=== PATIENT | female | born 1985 | race Caucasian/White ===

== ENCOUNTER 2018-08-05 21:15 | Observation (INO) | payer OTHER ==
[~2018-08-05] VITALS: Ht 167.6 cm; Wt 61.3 kg
--- OUTSIDE RECORDS SUMMARY | 2018-08-05 21:17 | XMS REPORT | Clinical Summary ---
Author Author [facility] Address Unknown Phone Unavailable Care Team Providers Care Media Analyst Name Role Phone Steven Payne MD PCP Allergies Active Allergy Reactions Severity Noted Date Comments Enoxaparin Hives 04/17/2016 Current Medications Prescription Sig. Disp. Refills Start End Date Status Date ARIPiprazole (ABILIFY) 2 Take 2 mg by mouth once 0 04/06/20 Active MG tablet daily. 16 sertraline (ZOLOFT) 100 Take 100 mg by mouth once 0 04/06/20 Active MG tablet daily. 16 pen needle, diabetic (BD Use with victoza pen 30 each 6 06/10/20 Active ULTRA-FINE MARY PEN 16 NEEDLES) 32 gauge x 5/32" needle TRULICITY 0.75 mg/0.5 mL INJECT 0.75 MG UNDER THE 6 Syringe 0 03/07/20 Active pen injector SKIN EVERY 7 DAYS. 18 ADDYI 100 mg tablet Take 1 tablet by mouth 6 06/29/20 07/28/20 Discontin nightly. 16 18 ued ursodiol (ACTIGALL) 300 Take 1 capsule by mouth 2 07/28/20 Discontin mg capsule (two) times a day. 18 ued losartan (COZAAR) 50 MG Take 50 mg by mouth 07/28/20 Discontin tablet daily. 18 ued dulaglutide (TRULICITY) Inject 0.75 mg under the 12 Syringe 1 05/29/20 12/10/19 Discontin 0.75 mg/0.5 mL pen skin every 7 days. 17 18 ued injector TRULICITY 0.75 mg/0.5 mL INJECT 0.75 MG UNDER THE 6 Syringe 0 12/10/19 03/07/20 Discontin pen injector SKIN EVERY 7 DAYS. 18 18 ued Active Problems Problem Noted Date Status post gastric bypass for obesity 09/09/2016 Hypoglycemia after GI (gastrointestinal) surgery 04/18/2016 Encounters Date Type Specialty Care Team Description 08/05/2018 Documentation Endocrinology Ashley Mojica MA Blood Sugar Problem 07/30/2018 Telephone Endocrinology Jayna Cruz MA 07/28/2018 Office Visit Endocrinology Nikky Beck MD Hypoglycemia after GI (gastrointestinal) surgery (Primary Dx) 07/25/2018 Orders Only Endocrinology Nikky Beck MD 06/12/2018 Telephone Endocrinology Ashley Mojica MA 04/08/2018 Telephone Endocrinology Ashley Mojica MA 03/06/2018 Refill Endocrinology Nikky Beck MD 12/11/2017 Orders Only Endocrinology Cynthia York MA Hypoglycemia after GI (gastrointestinal) surgery (Primary Dx) 12/10/2017 Documentation Endocrinology Cynthia York MA 12/10/2017 Refill Endocrinology Nikky Beck MD after 08/04/2017 Family History Medical History Relation Name Comments Diabetes Father Abdulaziz hernandez Kidney cancer Father Abdulaziz possible mary Hypertension Maternal Grandfather Heart disease Maternal Grandmother No Known Problems Mother Heart disease Other Grandmother Hypertension Other Grandmother Ulcers Other Grandmother Stomach ulcers Cancer Paternal Grandfather No Known Problems Sister No Known Problems Sister Relation Name Status Comments Father Abdulaziz Alive mary Maternal Grandfather Alive Maternal Grandmother Mother Alive Other Grandmother Alive Paternal Grandfather Paternal Grandmother Sister Alive Sister Alive Sister Social History Tobacco Use Types Packs/Day Years Used Date Never Smoker Smokeless Tobacco: Never Used Alcohol Use Drinks/Week oz/Week Comments No Sex Assigned at Date Recorded Not on file Last Filed Vital Signs Vital Sign Reading Time Taken Blood Pressure 108/70 07/28/2018 8:40 AM CDT Pulse 89 07/28/2018 8:40 AM CDT Temperature - - Respiratory Rate - - Oxygen Saturation 96% 07/28/2018 8:40 AM CDT Inhaled Oxygen - - Concentration Weight 65.1 kg (143 lb 9.6 oz) 07/28/2018 8:40 AM CDT Height 167.6 cm (5' 6") 07/28/2018 8:40 AM CDT Body Mass Index 23.18 07/28/2018 8:40 AM CDT Plan of Treatment Date Type Specialty Care Team Description 08/06/2018 Office Visit Endocrinology Niraj Celeste MD [address] [facility] [address] [place], [place] [id number] 08/12/2018 Office Visit Endocrinology Nikky Beck MD [address] [facility] [address] [place] [address] [phone] Health Maintenance Due Date Last Done Comments CERVICAL CANCER SCREENING 2004 INFLUENZA VACCINE 05/13/2018 Procedures Procedure Name Priority Date/Time Associated Diagnosis Comments POC GLUCOSE Routine 07/28/2018 Hypoglycemia after GI Results for this 8:42 AM CDT (gastrointestinal) procedure are in the surgery results section. HEMOGLOBIN A1C Routine 07/25/2018 Results for this 9:56 AM CDT procedure are in the results section. VITAMIN D 25 HYDROXY Routine 07/25/2018 Results for this LEVEL 9:56 AM CDT procedure are in the results section. THYROID STIMULATING Routine 07/25/2018 Results for this HORMONE 9:56 AM CDT procedure are in the results section. T4, FREE Routine 07/25/2018 Results for this 9:56 AM CDT procedure are in the results section. CBC WITH PLATELET AND Routine 07/25/2018 Results for this DIFFERENTIAL 9:56 AM CDT procedure are in the results section. MICROALBUMIN / CREATININE Routine 07/25/2018 Results for this URINE RATIO 9:56 AM CDT procedure are in the results section. COMPREHENSIVE METABOLIC Routine 07/25/2018 Results for this PANEL 9:56 AM CDT procedure are in the results section. LIPID PANEL Routine 07/25/2018 Results for this 9:56 AM CDT procedure are in the results section. after 08/04/2017 Results * POC glucose (07/28/2018 8:42 AM) POC glucose 179Comment: Non Fasting 65 - 100 Specimen Blood * Microalbumin / creatinine urine ratio (07/25/2018 9:56 AM) Creatinine, urine, random 175 20 - 275 mg/dL [facility] Microalbumin, urine 0.4 See Note: mg/dL [facility] Comment: MARIA L Reference Range: Reference Range Not established Microalbumin/creatinine 2 <30 mcg/mg creat [facility] ratio Comment: [facility] The ADA defines abnormalities in albumin excretion as follows: Category Result (mcg/mg creatinine) Normal <30 Microalbuminuria 30-299 Clinical albuminuria > UN=095 The ADA recommends that at least two of three specimens collected within a 3-6 month period be abnormal before considering a patient to be within a diagnostic category. Narrative Performed At FASTING:YES [facility] FASTING: YES Other Results Text Performing Organization Information: Site ID: [id number] Name: [facility] Address: [address] [place] [id number] Director: Starla Lewis Performing Organization Address [facility] [place] [address] * Vitamin D 25 hydroxy level (07/25/2018 9:56 AM) Vitamin D, 25-hydroxy 22 (L) 30 - 100 ng/mL [facility] Comment: [facility] Vitamin D Status 25-OH Vitamin D: Deficiency: <20 ng/mL Insufficiency: 20 - 29 ng/mL Optimal: > or=30 ng/mL For 25-OH Vitamin D testing on patients on D2-supplementation and patients for whom quantitation of D2 and D3 fractions is required, the QuestAssureD(TM) 25-OH VIT D, (D2,D3), LC/MS/MS is recommended: order code 12148 (patients >2yrs). For more information on this test, go to: http://education.[employer]Recoup/faq/DPT977 (This link is being provided for informational/educational purposes only.) Narrative Performed At FASTING:YES [facility] FASTING: YES Other Results Text Performing Organization Information: Site ID: [id number] Name: [facility] Address: [address] [place] [phone] Director: Starla Lewis Performing Organization Address [facility] [place] [address] * CBC with platelet and differential (07/25/2018 9:56 AM) WBC 4.8 3.8 - 10.8 Thousand/uL [facility] RBC 5.03 3.80 - 5.10 Million/uL [facility] HGB 14.0 11.7 - 15.5 g/dL [facility] HCT 42.5 35.0 - 45.0 % [facility] MCV 84.5 80.0 - 100.0 fL [facility] MCH 27.8 27.0 - 33.0 pg [facility] MCHC 32.9 32.0 - 36.0 g/dL [facility] RDW 12.9 11.0 - 15.0 % [facility] Platelet count 328 140 - 400 Thousand/uL [facility] MPV 9.8 7.5 - 12.5 fL [facility] Neutrophils, absolute 2,448 1,500 - 7,800 cells/uL [facility] Lymphocytes, absolute 1,954 850 - 3,900 cells/uL [facility] Monocytes, absolute 370 200 - 950 cells/uL [facility] Eosinophils, absolute 0 (L) 15 - 500 cells/uL [facility] Basophils, absolute 29 0 - 200 cells/uL [facility] Neutrophils 51 % [facility] Lymphocytes 40.7 % [facility] Monocytes 7.7 % [facility] Eosinophils 0.0 % [facility] Basophils + RC 0.6 % [facility] Narrative Performed At FASTING:YES [facility] FASTING: YES Other Results Text Performing Organization Information: Site ID: [id number] Name: [facility] Address: [address] [place] [phone] Director: Starla Lewis Performing Organization Address City/[facility] Phone Number [place] [phone] * Thyroid stimulating hormone (07/25/2018 9:56 AM) TSH 0.81 mIU/L [facility] Comment: [facility] Reference Range > or=20 Years0.40-4.50 Ranges First trimester0.26-2.66 Second trimester 0.55-2.73 Third trimester0.43-2.91 Narrative Performed At FASTING:YES [facility] FASTING: YES Other Results Text Performing Organization Information: Site ID: [id number] Name: [facility] Address: [address] [place] [phone] Director: Starla Lewis Performing Organization Address City/State/[facility] Phone Number [place] [address] [phone] * T4, free (07/25/2018 9:56 AM) T4, free 1.0 0.8 - 1.8 ng/dL [facility] Narrative Performed At FASTING:YES [facility] FASTING: YES Other Results Text Performing Organization Information: Site ID: [id number] Name: [facility] Address: [address] [place] [phone] Director: Starla Lewis Performing Organization Address [facility] [place] [address] * Hemoglobin A1c (07/25/2018 9:56 AM) Hemoglobin A1C 5.2 <5.7 % of total Hgb [facility] Comment: [facility] For the purpose of screening for the presence of diabetes: <5.7% Consistent with the absence of diabetes 5.7-6.4%Consistent with increased risk for diabetes (predi abetes) > or=6.5%Consistent with diabetes This assay result is consistent with a decreased risk of diabetes. Currently, no consensus exists regarding use of hemoglobin A1c for diagnosis of diabetes in children. According to [place] [employer] (ADA) guidelines, hemoglobin A1c <7.0% represents optimal control in non- diabetic patients. Different metrics may apply to specific patient populations. Standards of Medical Care in Diabetes(ADA). Narrative Performed At FASTING:YES [facility] FASTING: YES Other Results Text Performing Organization Information: Site ID: [id number] Name: [facility] Address: [address] [place] [phone] Director: Starla Lewis Performing Organization Address [facility] [place] [address] * Lipid panel (07/25/2018 9:56 AM) Cholesterol, total 199 <200 mg/dL [facility] HDL cholesterol 83 >50 mg/dL [facility] Triglycerides 77 <150 mg/dL [facility] LDL cholesterol 99 mg/dL (calc) [facility] calculated Comment: [facility] Reference range: <100 Desirable range <100 mg/dL for primary prevention; <70 mg/dL for patients with CHD or diabetic patients with > or=2 CHD risk factors. LDL-C is now calculated using the Efra-Fu calculation, which is a validated novel method providing better accuracy than the Friedewald equation in the estimation of LDL-C. Efra SS et al. MYLES. 2013;310(19): 6178-6262 (http://education.[employer].com/faq/LRM283) Cholesterol/HDL ratio 2.4 <5.0 (calc) [facility] Non-HDL cholesterol 116 <130 mg/dL (calc) [facility] Comment: [facility] For patients with diabetes plus 1 major ASCVD risk factor, treating to a non-HDL-C goal of <100 mg/dL (LDL-C of <70 mg/dL) is considered a therapeutic option. Narrative Performed At FASTING:YES [facility] FASTING: YES Other Results Text Performing Organization Information: Site ID: [id number] Name: [facility] Address: [address] [place] [phone] Director: Starla Lewis Performing Organization Address City/State/Zipcode Phone Number [facility] [address] [place] [phone] * Comprehensive metabolic panel (07/25/2018 9:56 AM) Glucose 91 65 - 99 mg/dL [facility] Comment: [facility] Fasting reference interval BUN, whole blood 12 7 - 25 mg/dL [facility] Creatinine 0.90 0.50 - 1.10 mg/dL [facility] EGFR Non-Afr. [place] 83 > OR=60 mL/min/1.73m2 [facility] EGFR 96 > OR=60 mL/min/1.73m2 [facility] BUN/creatinine ratio NOT APPLICABLE 6 - 22 (calc) [facility] Sodium 140 135 - 146 mmol/L [facility] Potassium 4.4 3.5 - 5.3 mmol/L [facility] Chloride 107 98 - 110 mmol/L [facility] CO2 27 20 - 32 mmol/L [facility] Calcium 9.0 8.6 - 10.2 mg/dL [facility] Protein 6.8 6.1 - 8.1 g/dL [facility] Albumin, S 4.0 3.6 - 5.1 g/dL [facility] Globulin, total 2.8 1.9 - 3.7 g/dL (calc) [facility] Albumin/globulin ratio 1.4 1.0 - 2.5 (calc) [facility] Total bilirubin 0.7 0.2 - 1.2 mg/dL [facility] Alkaline phosphatase 114 33 - 115 U/L [facility] AST 15 10 - 30 U/L [facility] ALT 11 6 - 29 U/L [facility] Narrative Performed At FASTING:YES [facility] FASTING: YES Other Results Text Performing Organization Information: Site ID: [id number] Name: [facility] Address: [address] [place] [address] Director: Starla Lewis Performing Organization Address City/State/Zipcode Phone Number [facility] [address] [place] [address] after 08/04/2017 Insurance Payer Benefit Subscriber ID Type Phone Address Plan / Group [employer]IG[employer] CIGNA OPEN xxxxxxxxxxx HMO ACCESS/NET WORK
--- OUTSIDE RECORDS SUMMARY | 2018-08-05 21:17 | XMS REPORT | Continuity of Care Document ---
Author Author [facility] Interface Address Unknown Phone Unavailable Problems Problem Status Onset Date Classification Date Reported Comments Source Abdominal pain 05/03/2018 05/06/2018 [facility] LWR ABDOMINAL PAIN Active 05/03/2018 [facility] Medications Medication Details Route Status Patient Instructions Ordering Provider Order Date Source tramadol hydrochloride 50 MG Oral Tablet 50 mg=1 tab, PO, Q8H, PRN Pain, X 5 day, # 15 tab, 0 Refill(s) Active 05/04/2018 [facility] Omnipaque 300 100 mL, Route: IV, Drug Form: SOLN, Dosing Weight 61.818, kg, ONCE, Start date: 05/03/18 20:29:00 CDT, Stop date: 05/03/18 20:29:00 CDTNotes: (Same as:Omnipaque 300). WASTE: F/P - Black; E - Municipal Trash Bin Inactive 05/04/2018 [facility] Zofran 4 mg, Route: IVP, Drug form: INJ, ONCE, Dosing Weight 61.818, kg, Priority: STAT, Start date: 05/03/18 20:24:00 CDT, Stop date: 05/03/18 20:24:00 CDT Inactive 05/04/2018 [facility] Morphine 4 mg, Route: IVP, ONCE, Dosing Weight 61.818, kg, Priority: STAT, Start date: 05/03/18 20:24:00 CDT, Stop date: 05/03/18 20:24:00 CDT Inactive 05/04/2018 [facility] Saline Flush 0.9% 10 mL, Route: IVP, Drug Form: INJ, Dosing Weight 61.818, kg, PRN, PRN Line Flush, Start date: 05/03/18 18:51:00 CDT, Duration: 30 day, Stop date: 06/02/18 18:50:00 CDTNotes: Same as: BD Posiflush Sterile Inactive 05/03/2018 [facility] Allergies, Adverse Reactions, Alerts Substance Category Reaction Severity Reaction type Status Date Reported Comments Source Lovenox Assertion Drug allergy Active [facility] Immunizations Immunization Date Given Site Status Last Updated Comments Source Results Order Name Results Value Reference Range Date Interpretation Comments Source CHEM PANEL eGFR 71 mL/min/1.73m2 05/04/2018 Result Comment: The eGFR is calculated using the CKD-EPI formula. In most young, healthy individuals the eGFR will be >90 mL/min/1.73m2. The eGFR declines with age. An eGFR of 60-89 may be normal in some populations, particularly the elderly, for whom the CKD-EPI formula has not been extensively validated. Use of the eGFR is not recommended in the following populations: Individuals with unstable creatinine concentrations, including patients and those with serious co-morbid conditions. Patients with extremes in muscle mass or diet. The data above are obtained from the National Kidney Disease Education Program (NKDEP) which additionally recommends that when the eGFR is used in patients with extremes of body mass index for purposes of drug dosing, the eGFR should be multiplied by the estimated BMI. [facility] CHEM PANEL Calcium Lvl 8.1 mg/dL 8.5 - 10.5 05/04/2018 [facility] CHEM PANEL ALT 20 unit/L 0 - 65 05/04/2018 [facility] CHEM PANEL Albumin Lvl 3.7 g/dL 3.5 - 5.0 05/04/2018 [facility] CHEM PANEL Total Protein 7.3 g/dL 6.4 - 8.4 05/04/2018 [facility] CHEM PANEL Alk Phos 124 unit/L 39 - 136 05/04/2018 [facility] CHEM PANEL Bili Total 0.4 mg/dL 0.2 - 1.3 05/04/2018 [facility] CHEM PANEL AST 16 unit/L 0 - 37 05/04/2018 [facility] CHEM PANEL Potassium Lvl 3.6 meq/L 3.5 - 5.1 05/04/2018 [facility] CHEM PANEL Chloride Lvl 108 meq/L 95 - 109 05/04/2018 [facility] CHEM PANEL Sodium Lvl 143 meq/L 135 - 145 05/04/2018 [facility] CHEM PANEL CO2 27 meq/L 24 - 32 05/04/2018 [facility] CHEM PANEL Creatinine Lvl 1.02 mg/dL 0.50 - 1.40 05/04/2018 [facility] CHEM PANEL Glucose Lvl 96 mg/dL 70 - 99 05/04/2018 [facility] CHEM PANEL BUN 15 mg/dL 7 - 22 05/04/2018 [facility] CHEM PANEL Globulin 3.6 g/dL 2.7 - 4.2 05/04/2018 [facility] CHEM PANEL B/C Ratio 15 6 - 25 05/04/2018 [facility] CHEM PANEL A/G Ratio 1.0 0.7 - 1.6 05/04/2018 [facility] CHEM PANEL AGAP 11.6 meq/L 10.0 - 20.0 05/04/2018 [facility] CHEM PANEL Lipase Lvl 368 unit/L 73 - 393 05/04/2018 [facility] ENDOCRINOLOGY S Preg Negative *NA* (05/03/18 7:04 PM) Negative 05/04/2018 [facility] HEMATOLOGY Monocytes # 0.6 K/CMM 0.0 - 0.8 05/04/2018 [facility] HEMATOLOGY Lymphocytes # 2.1 K/CMM 1.0 - 5.5 05/04/2018 [facility] HEMATOLOGY Eosinophils # 0.1 K/CMM 0.0 - 0.5 05/04/2018 [facility] HEMATOLOGY Segs-Bands # 4.2 K/CMM 1.5 - 8.1 05/04/2018 [facility] HEMATOLOGY Lymphocytes 30.0 % 20.0 - 40.0 05/04/2018 [facility] HEMATOLOGY Segs 59.7 % 45.0 - 75.0 05/04/2018 [facility] HEMATOLOGY Eosinophils 1.0 % 0.0 - 4.0 05/04/2018 [facility] HEMATOLOGY Monocytes 8.9 % 2.0 - 12.0 05/04/2018 [facility] HEMATOLOGY Basophils 0.4 % 0.0 - 1.0 05/04/2018 [facility] HEMATOLOGY Platelet 334 K/CMM 133 - 450 05/04/2018 [facility] HEMATOLOGY RDW 12.9 % 11.5 - 14.5 05/04/2018 [facility] HEMATOLOGY WBC 7.1 K/CMM 3.7 - 10.4 05/04/2018 [facility] HEMATOLOGY MCV 85.4 fL 80.0 - 98.0 05/04/2018 [facility] HEMATOLOGY MCHC 33.3 g/dL 32.0 - 36.0 05/04/2018 [facility] HEMATOLOGY MCH 28.4 pg 27.0 - 31.0 05/04/[address] [facility] HEMATOLOGY MPV 7.7 fL 7.4 - 10.4 05/04/[address] [facility] HEMATOLOGY Hgb 14.1 g/dL 12.0 - 16.0 05/04/[address] [facility] HEMATOLOGY RBC 4.96 M/CMM 4.20 - 5.40 05/04/[address] [facility] HEMATOLOGY Hct 42.3 % 36.0 - 48.0 05/04/[address] [facility] URINE AND STOOL UA Mucus Few /LPF None Seen /LPF 05/04/[address] [facility] URINE AND STOOL UA Bacteria Occasional /HPF None Seen /HPF 05/04/2018 [facility] URINE AND STOOL UA RBC 1 /HPF 0 - 2 05/04/2018 [facility] URINE AND STOOL UA WBC 37 /HPF 0 - 5 05/04/2018 [facility] URINE AND STOOL UA Sq Epi Many /LPF Few /LPF 05/04/2018 [facility] URINE AND STOOL UA Ketones Negative 05/04/2018 [facility] URINE AND STOOL UA Leuk Est Moderate *ABN* (05/03/18 7:04 PM) Negative 05/04/[address] [facility] URINE AND STOOL UA Bili Negative *NA* (05/03/18 7:04 PM) Negative 05/04/2018 [facility] URINE AND STOOL UA Spec Grav 1.020 <=1.030 05/04/[address] [facility] URINE AND STOOL UA pH 5.0 5.0 - 8.0 05/04/[address] [facility] URINE AND STOOL UA Nitrite Negative (05/03/18 7:04 PM) Negative 05/04/[address] [facility] URINE AND STOOL UA Blood Negative (05/03/18 7:04 PM) Negative 05/04/[address] [facility] URINE AND STOOL UA Urobilinogen 4.0 mg/dL 0.1 - 1.0 05/04/[address] [facility] URINE AND STOOL UA Glucose Negative mg/dL Negative mg/dL 05/04/[address] [facility] URINE AND STOOL UA Protein Negative mg/dL Negative mg/dL 05/04/[address] [facility] URINE AND STOOL UA Turbidity Clear (05/03/18 7:04 PM) Clear 05/04/[address] [facility] URINE AND STOOL UA Color Yellow *NA* (05/03/18 7:04 PM) Yellow 05/04/2018 [facility] Culture: Urine Holding For Better Growth 05/04/[address] [facility] ED Abdomen/Pelvis IV contrast only CT ED Abdomen/Pelvis IV contrast only CT Clinical Indication: - RLQ pain. Comparison: None. TECHNIQUE: Helical imaging was performed from diaphragm through the symphysis with coronal and sagittal reconstructions. CT imaging was performed with exposure control parameters to reduce radiation dose. IV CONTRAST: 100 cc Omnipaque. GI CONTRAST: YES CT Radiation Dose: LHE=414 mGy-cm FINDINGS: LOWER CHEST: The visualized lung bases are clear. LIVER: Unremarkable. GALLBLADDER: Status post cholecystectomy INTRAHEPATIC BILE DUCT AND EXTRAHEPATIC BILE DUCT: Unremarkable. PANCREAS: Unremarkable. SPLEEN: Unremarkable. ADRENALS: Unremarkable. KIDNEYS AND URETERS: Unremarkable. STOMACH: There are postsurgical findings of prior gastric bypass. BOWEL: The small bowel loops in the abdomen and pelvis appear unremarkable. The colonic loops in the abdomen and pelvis appear unremarkable. APPENDIX: Not well seen on the exam. PERITONEUM AND RETROPERITONEUM: No ascites or free air. There is no aortic aneurysm or dissection. LYMPH NODES: Unremarkable. PELVIS: No pelvic mass or adenopathy. BLADDER: Unremarkable. OSSEOUS STRUCTURES: No acute abnormality seen. SOFT TISSUES: Unremarkable. IMPRESSION: No specific evidence of acute abdominopelvic abnormality. SL: ASHLEE 05/03/2018 - - Read by: Velasquez Bennett MD Dictated Date/time: 05/03/18 21:12 Electronically Signed by: Velasquez Bennett MD 05/03/18 21:18 FINAL REPORT [facility] Vital Signs Vital Sign Value Date Comments Source Temperature Oral (F) 98.2 F 05/04/2018 [facility] Heart Rate 87 05/04/2018 [facility] Respitory Rate 20 05/04/2018 [facility] Systolic (mm Hg) 114 05/04/2018 [facility] Diastolic (mm Hg) 72 05/04/2018 [facility] Systolic (mm Hg) 122 05/04/2018 [facility] Diastolic (mm Hg) 74 05/04/2018 [facility] BMI Calculated 05/03/2018 [facility] Weight 61.818 05/03/2018 [facility] Height 167.64 cm 05/03/[address] [facility] Temperature Oral (F) 97.5 F 05/03/2018 [facility] Heart Rate 90 05/03/2018 [facility] Respitory Rate 18 05/03/2018 [facility] Systolic (mm Hg) 119 05/03/2018 [facility] Diastolic (mm Hg) 83 05/03/2018 [facility] Encounters Location Location Details Encounter Type Encounter Number Reason For Visit Attending Provider ADM Date DC Date Status Source [facility] Emergency [id number] Tesfaye Seth 05/03/2018 05/04/2018 [facility] Procedures Procedure Code Date Perfomer Comments Source Gastric bypass [id number] [facility]
--- OUTSIDE RECORDS SUMMARY | 2018-08-05 21:17 | XMS REPORT | Summary of Care ---
Author Author [facility] Organization [facility] Address Unknown Phone Unavailable Encounter [facility](FIN) [id number] Date(s): 05/03/18 - 05/03/18 [facility] [address] [place] [address]- Encounter Diagnosis Abdominal pain (Discharge Diagnosis) - 05/03/18 Discharge Disposition: Home or Self Care Attending Physician: Tesfaye Ann DO Vital Signs 1 2 3 Most recent to oldest [Reference Range]: 167.64 cm (05/03/18 6:44 PM) Height 98.2 DegF (05/03/18 9:33 PM) 97.5 DegF (05/03/18 6:44 PM) Temperature Oral [96.4-99.1 DegF] 114/72 mmHg (05/03/18 9:33 PM) 122/74 mmHg (05/03/18 8:02 PM) 119/83 mmHg (05/03/18 6:44 PM) Blood Pressure [90-140/60-90 mmHg] 20 BRMIN (05/03/18 9:33 PM) 18 BRMIN (05/03/18 6:44 PM) Respiratory Rate [14-20 BRMIN] 87 bpm (05/03/18 9:33 PM) 90 bpm (05/03/18 6:44 PM) Peripheral Pulse Rate [60-100 bpm] 61.818 kg (05/03/18 6:44 PM) Weight 22 m2 (05/03/18 6:44 PM) Body Mass Index Problem List No data available for this section Allergies, Adverse Reactions, Alerts Substance Reaction Severity Status Lovenox Active Medications morphine Sulfate 4 mg, Route: IVP, ONCE, Dosing Weight 61.818, kg, Priority: STAT, Start date: 20:24:00 CDT, Stop date: 05/03/18 20:24:00 CDT Start Date: 05/03/18 Stop Date: 05/03/18 Status: Completed Omnipaque 300 100 mL, Route: IV, Drug Form: SOLN, Dosing Weight 61.818, kg, ONCE, Start date: 05/03/18 20:29:00 CDT, Stop date: 05/03/18 20:29:00 CDT Notes: (Same as:Omnipaque 300).WASTE: F/P - Black; E - Municipal Trash Bin Start Date: 05/03/18 Stop Date: 05/03/18 Status: Completed Saline Flush 0.9% 10 mL, Route: IVP, Drug Form: INJ, Dosing Weight 61.818, kg, PRN, PRN Line Flush , Start date: 05/03/18 18:51:00 CDT, Duration: 30 day, Stop date: 06/02/18 18:50 :00 CDT Notes: Same as: BD Posiflush Sterile Start Date: 05/03/18 Stop Date: 05/03/18 Status: Discontinued tramadol 50 mg oral tablet 50 mg=1 tab, PO, Q8H, PRN Pain, X 5 day, # 15 tab, 0 Refill(s) Start Date: 05/03/18 Stop Date: 05/08/18 Status: Ordered Zofran 4 mg, Route: IVP, Drug form: INJ, ONCE, Dosing Weight 61.818, kg, Priority: STAT , Start date: 05/03/18 20:24:00 CDT, Stop date: 05/03/18 20:24:00 CDT Start Date: 05/03/18 Stop Date: 05/03/18 Status: Completed Results ELECTROLYTES Most recent to 1 oldest [Reference Range]: Sodium Lvl [135-145 143 mEq/L mEq/L] (05/03/18 7:04 PM) Potassium Lvl 3.6 mEq/L [3.5-5.1 mEq/L] (05/03/18 7:04 PM) Chloride Lvl [95-109 108 mEq/L mEq/L] (05/03/18 7:04 PM) CO2 [24-32 mEq/L] 27 mEq/L (05/03/18 7:04 PM) AGAP [10.0-20.0 11.6 mEq/L mEq/L] (05/03/18 7:04 PM) CHEM PANEL Most recent to 1 oldest [Reference Range]: Creatinine Lvl 1.02 mg/dL [0.50-1.40 mg/dL] (05/03/18 7:04 PM) eGFR 71 mL/min/1.73m2 1 *NA* (05/03/18 7:04 PM) BUN [7-22 mg/dL] 15 mg/dL (05/03/18 7:04 PM) B/C Ratio [6-25] 15 (05/03/18 7:04 PM) Glucose Lvl [70-99 96 mg/dL mg/dL] (05/03/18 7:04 PM) Total Protein 7.3 g/dL [6.4-8.4 g/dL] (05/03/18 7:04 PM) Albumin Lvl [3.5-5.0 3.7 g/dL g/dL] (05/03/18 7:04 PM) Globulin [2.7-4.2 3.6 g/dL g/dL] (05/03/18 7:04 PM) A/G Ratio [0.7-1.6] 1.0 (05/03/18 7:04 PM) Calcium Lvl 8.1 mg/dL [8.5-10.5 mg/dL] *LOW* (05/03/18 7:04 PM) ALT [0-65 unit/L] 20 unit/L (05/03/18 7:04 PM) AST [0-37 unit/L] 16 unit/L (05/03/18 7:04 PM) Alk Phos [39-136 124 unit/L unit/L] (05/03/18 7:04 PM) Bili Total [0.2-1.3 0.4 mg/dL mg/dL] (05/03/18 7:04 PM) Lipase Lvl [73-393 368 unit/L unit/L] (05/03/18 7:04 PM) 1Result Comment: The eGFR is calculated using the [...] from the National Kidney Disease Education Program ( NKDEP) which additionally recommends that when the eGFR is used in patients with extremes of body mass index for purposes of drug dosing, the eGFR should be mul tiplied by the estimated BMI. ENDOCRINOLOGY Most recent to 1 oldest [Reference Range]: S Preg [Negative] Negative *NA* (05/03/18 7:04 PM) URINE AND STOOL Most recent to 1 oldest [Reference Range]: UA Turbidity [Clear] Clear (05/03/18 7:04 PM) UA Color [Yellow] Yellow *NA* (05/03/18 7:04 PM) UA pH [5.0-8.0] 5.0 (05/03/18 7:04 PM) UA Spec Grav 1.020 [<=1.030] (05/03/18 7:04 PM) UA Glucose [Negative Negative mg/dL mg/dL] *NA* (05/03/18 7:04 PM) UA Blood [Negative] Negative (05/03/18 7:04 PM) UA Ketones Negative *NA* (05/03/18 7:04 PM) UA Protein [Negative Negative mg/dL mg/dL] (05/03/18 7:04 PM) UA Urobilinogen 4.0 mg/dL [0.1-1.0 mg/dL] *HI* (05/03/18 7:04 PM) UA Bili [Negative] Negative *NA* (05/03/18 7:04 PM) UA Leuk Est Moderate [Negative] *ABN* (05/03/18 7:04 PM) UA Nitrite Negative [Negative] (05/03/18 7:04 PM) UA WBC [0-5 /HPF] 37 /HPF *HI* (05/03/18 7:04 PM) UA RBC [0-2 /HPF] 1 /HPF (05/03/18 7:04 PM) UA Bacteria [None Occasional /HPF Seen /HPF] *NA* (05/03/18 7:04 PM) UA Sq Epi [Few /LPF] Many /LPF *ABN* (05/03/18 7:04 PM) UA Mucus [None Seen Few /LPF /LPF] *NA* (05/03/18 7:04 PM) HEMATOLOGY Most recent to 1 oldest [Reference Range]: WBC [3.7-10.4 K/CMM] 7.1 K/CMM (05/03/18 7:04 PM) RBC [4.20-5.40 4.96 M/CMM M/CMM] (05/03/18 7:04 PM) Hgb [12.0-16.0 g/dL] 14.1 g/dL (05/03/18 7:04 PM) Hct [36.0-48.0 %] 42.3 % (05/03/18 7:04 PM) MCV [80.0-98.0 fL] 85.4 fL (05/03/18 7:04 PM) MCH [27.0-31.0 pg] 28.4 pg (05/03/18 7:04 PM) MCHC [32.0-36.0 33.3 g/dL g/dL] (05/03/18 7:04 PM) RDW [11.5-14.5 %] 12.9 % (05/03/18 7:04 PM) MPV [7.4-10.4 fL] 7.7 fL (05/03/18 7:04 PM) Platelet [133-450 334 K/CMM K/CMM] (05/03/18 7:04 PM) Segs [45.0-75.0 %] 59.7 % (05/03/18 7:04 PM) Lymphocytes 30.0 % [20.0-40.0 %] (05/03/18 7:04 PM) Monocytes [2.0-12.0 8.9 % %] (05/03/18 7:04 PM) Eosinophils [0.0-4.0 1.0 % %] (05/03/18 7:04 PM) Basophils [0.0-1.0 0.4 % %] (05/03/18 7:04 PM) Segs-Bands # 4.2 K/CMM [1.5-8.1 K/CMM] (05/03/18 7:04 PM) Lymphocytes # 2.1 K/CMM [1.0-5.5 K/CMM] (05/03/18 7:04 PM) Monocytes # [0.0-0.8 0.6 K/CMM K/CMM] (05/03/18 7:04 PM) Eosinophils # 0.1 K/CMM [0.0-0.5 K/CMM] (05/03/18 7:04 PM) Microbiology Reports TEST: Culture: Urine STATUS: Order in Progress BODY SITE: SOURCE: Urine, Clean Catch COLLECTED DATE/TIME: 05/03/18 7:04 PM PRELIMINARY REPORT [employer] Immunizations No data available for this section Procedures Procedure Date Related Diagnosis Body Site Status Gastric bypass Completed Social History Social History Type Response Smoking Status Never smoker; Exposure to Tobacco Smoke None; Cigarette Smoking Last 365 Days No; Reg Smoking Cessation Counseling No entered on: 05/03/18 Assessment and Plan No data available for this section
[2018-08-05] MEDS ORDERED: DEXTROSE 50% SYRINGE 50 ML IV STA (21:23)
[2018-08-05] MEDS ORDERED: ONDANSETRON HCL INJ 2 MG/ML VIAL IV ONE (21:23)
[2018-08-05] MEDS ORDERED: SODIUM CHLORIDE 0.9% 1000ML 1,000 ML IV STA (21:23)
[2018-08-05] MEDS ORDERED: KETOROLAC TROMETHAMINE 30 MG/ML VIAL IM ONE (21:40)
[2018-08-05 21:43] LABS: BASOPHILS % 0.4 % (0.0-1.0); HEMATOCRIT 38.9 % (34.2-44.1); HEMOGLOBIN 12.8 g/dL (12.0-16.0); LYMPHOCYTES # (AUTO) 3.4 (1.0-3.2); LYMPHOCYTES % 43.7 % (18.0-39.1); MEAN CORPUSCULAR HEMOGLOBIN 27.8 pg (28-32); MEAN CORPUSCULAR HGB CONC 32.9 g/dL (31-35); MEAN CORPUSCULAR VOLUME 84.6 fL (81-99); MONOCYTES # (AUTO) 0.6 (0.2-0.8); MONOCYTES % 8.2 % (4.4-11.3); NEUTROPHILS # (AUTO) 3.7 (2.1-6.9); NEUTROPHILS % 47.4 % (38.7-80.0); PLATELET COUNT 318 x10e3/uL (140-360); RED CELL DISTRIBUTION WIDTH 12.3 % (11.7-14.4)
[2018-08-05 22:02] LABS: ALANINE AMINOTRANSFERASE 11 IU/L (0-55); ALBUMIN 3.5 g/dL (3.5-5.0); ALBUMIN/GLOBULIN RATIO 1.3 (0.8-2.0); ALKALINE PHOSPHATASE 104 IU/L (40-150); ANION GAP 10.9 mmol/L (8-16); BLOOD UREA NITROGEN 14 mg/dL (7-26); BUN/CREATININE RATIO 15 (6-25); CALCIUM 8.6 mg/dL (8.4-10.2); CARBON DIOXIDE 25 mmol/L (22-29); CHLORIDE 104 mmol/L (98-107); CREATININE, SERUM 0.95 mg/dL (0.57-1.11); EST GLOMERULAR FILTRATION RATE > 60 ML/MIN (60-); GLUCOSE 88 mg/dL (74-118); POTASSIUM 3.9 mmol/L (3.5-5.1); SODIUM 136 mmol/L (136-145)
[2018-08-05] MEDS ORDERED: ABILIFY5 MG PO (22:28)
[2018-08-05] MEDS ORDERED: TRULICITY SQ (22:28)
[2018-08-05] MEDS ORDERED: ZOLOFT50 MG PO (22:28)
[2018-08-05 22:32] LABS: CLARITY,URINE CLEAR (CLEAR); COLOR,URINE YELLOW (YELLOW)
[2018-08-05 22:33] LABS: BILIRUBIN,URINE NEGATIVE (NEGATIVE); KETONES,URINE NEGATIVE (NEGATIVE); LEUKOCYTE ESTERASE ,URINE 2+ (NEGATIVE); NITRITE,URINE NEGATIVE (NEGATIVE); PROTEIN,URINE DIPSTICK NEGATIVE (NEGATIVE); URINE UROBILINOGEN 0.2 mg/dL (0.2 - 1)
[2018-08-05 22:40] LABS: BACTERIA,URINE MANY /HPF; WBC,URINE (MAN) >50 /HPF (0-5)
[2018-08-05 22:41] LABS: EPITHELIAL CELLS,URINE FEW /LPF
[2018-08-05 22:53] LABS: PREGNANCY TEST, URINE NEGATIVE (NEGATIVE)
--- OUTSIDE RECORDS SUMMARY | 2018-08-06 | XMS REPORT | Clinical Summary ---
Author Author [facility] Address Unknown Phone Unavailable Care Team Providers Care Clinical Informatics Specialist Name Role Phone Steven Payne MD PCP [...] 08/06/2018 Office Visit Endocrinology Niraj Celeste MD [address] [facility] [address] [place], [place] [phone] 08/12/2018 Office Visit Endocrinology Nikky Beck MD [address] [facility] [address] [place] [address] [phone] Health Maintenance Due Date Last Done Comments [...] <30 mcg/mg creat [facility] ratio Comment: ELMO The ADA defines abnormalities in albumin excretion as follows: Category Result (mcg/mg creatinine) Normal <30 Microalbuminuria 30-299 Clinical albuminuria > PP=615 The ADA recommends that at least two of three specimens collected within a 3-6 month period be abnormal before considering a patient to be within a diagnostic category. Narrative Performed At FASTING:YES [facility] FASTING: YES Other Results Text Performing Organization Information: Site ID: SAMANTHA Name: [facility] Address: [address] [place] [id number] Director: Starla Lewis Performing Organization Address [facility] Phone [place] [address] * Vitamin D 25 hydroxy level (07/25/2018 9:56 AM) Vitamin D, 25-hydroxy 22 (L) 30 - 100 ng/mL [facility] Comment: ELMO Vitamin D Status 25-OH Vitamin D: Deficiency: <20 ng/mL Insufficiency: 20 - 29 ng/mL Optimal: > or=30 ng/mL For 25-OH Vitamin D testing on patients on D2-supplementation and patients for whom quantitation of D2 and D3 fractions is required, the QuestAssureD(TM) 25-OH VIT D, (D2,D3), LC/MS/MS is recommended: order code 16804 (patients >2yrs). For more information on this test, go to: http://education.Market Wire.Yan Engines/faq/OYQ297 (This link is being provided for informational/educational purposes only.) Narrative Performed At FASTING:YES [facility] FASTING: YES Other Results Text Performing Organization Information: Site ID: SAMANTHA Name: [facility] Address: [address] [place] [phone] Director: Starla Lewis Performing Organization Address [facility] Cent[facility] [place] [address] * CBC with platelet and differential (07/25/2018 9:56 AM) WBC 4.8 3.8 - 10.8 Thousand/uL [facility] RBC 5.03 3.80 - 5.10 Million/uL [facility] HGB 14.0 11.7 - 15.5 g/dL [facility] HCT 42.5 35.0 - 45.0 % [facility] MCV 84.5 80.0 - 100.0 fL [facility] MCH 27.8 27.0 - 33.0 pg [facility] EL[place] MCHC 32.9 32.0 - 36.0 g/dL [facility] RDW 12.9 11.0 - 15.0 % [facility] [place] Platelet count 328 140 - 400 Thousand/uL [facility] MPV 9.8 7.5 - 12.5 fL [facility] Neutrophils, absolute 2,448 1,500 - 7,800 cells/uL [facility] [place] Lymphocytes, absolute 1,954 850 - 3,900 cells/uL [facility] [place] Monocytes, absolute 370 200 - 950 cells/uL [facility] Eosinophils, absolute 0 (L) 15 - 500 cells/uL [facility] Basophils, absolute 29 0 - 200 cells/uL [facility] Neutrophils 51 % [facility] Lymphocytes 40.7 % [facility] Monocytes 7.7 % [facility] Eosinophils 0.0 % [facility] Basophils + RC 0.6 % [facility] Narrative Performed At FASTING:YES [facility] FASTING: YES Other Results Text Performing Organization Information: Site ID: A Name: [facility] Address: [address] [place] [phone] Director: Starla Lewis Performing Organization Address City/[facility] Cent[facility] Phone Number [facility] [place] [phone] * Thyroid stimulating hormone (07/25/2018 9:56 AM) TSH 0.81 mIU/L [facility] Comment: ELMO Reference Range > or=20 Years0.40-4.50 Ranges First trimester0.26-2.66 Second trimester 0.55-2.73 Third trimester0.43-2.91 Narrative Performed At FASTING:YES [facility] FASTING: YES Other Results Text Performing Organization Information: Site ID: RGA Name: [facility] Address: [address] [place] [phone] Director: Starla Lewis Performing Organization Address City/State/[facility] Phone Number [facility] [address] [address] * T4, free (07/25/2018 9:56 AM) T4, free 1.0 0.8 - 1.8 ng/dL [facility] Narrative Performed At FASTING:YES [facility] FASTING: YES Other Results Text Performing Organization Information: Site ID: SAMANTHA Name: [facility] Address: [address] [place] [phone] Director: Starla Lewis Performing Organization Address [facility] [place] [address] * Hemoglobin A1c (07/25/2018 9:56 AM) Hemoglobin A1C 5.2 <5.7 % of total Hgb [facility] Comment: EL[place] For the purpose of screening for the presence of diabetes: <5.7% Consistent with the absence of diabetes 5.7-6.4%Consistent with increased risk for diabetes (predi abetes) > or=6.5%Consistent with diabetes This assay result is consistent with a decreased risk of diabetes. Currently, no consensus exists regarding use of hemoglobin A1c for diagnosis of diabetes in children. According to [place] Diabetes Association (ADA) guidelines, hemoglobin A1c <7.0% represents optimal control in non- diabetic patients. Different metrics may apply to specific patient populations. Standards of Medical Care in Diabetes(ADA). Narrative Performed At FASTING:YES [facility] FASTING: YES Other Results Text Performing Organization Information: Site ID: SAMANTHA Name: [facility] Address: [address] [place] [phone] Director: Starla Lewis Performing Organization Address [facility] [place] [address] * Lipid panel (07/25/2018 9:56 AM) Cholesterol, total 199 <200 mg/dL [facility] HDL cholesterol 83 >50 mg/dL [facility] Triglycerides 77 <150 mg/dL [facility] LDL cholesterol 99 mg/dL (calc) [facility] calculated Comment: ELMO Reference range: <100 Desirable range <100 mg/dL for primary prevention; <70 mg/dL for patients with CHD or diabetic patients with > or=2 CHD risk factors. LDL-C is now calculated using the Efra-Fu calculation, which is a validated novel method providing better accuracy than the Friedewald equation in the estimation of LDL-C. Efra SS et al. MYLES. 2013;310(19): 6072-1419 (http://education.[employer].com/faq/VVN933) Cholesterol/HDL ratio 2.4 <5.0 (calc) [facility] [place] Non-HDL cholesterol 116 <130 mg/dL (calc) [facility] Comment: ELMO For patients with diabetes plus 1 major ASCVD risk factor, treating to a non-HDL-C goal of <100 mg/dL (LDL-C of <70 mg/dL) is considered a therapeutic option. Narrative Performed At FASTING:YES [facility] FASTING: YES Other Results Text Performing Organization Information: Site ID: RGA Name: [facility] Address: [address] [place] [phone] Director: Starla Lewis Performing Organization Address City/State/Zipcode Phone Number [facility] [place] [address] [place] [phone] * Comprehensive metabolic panel (07/25/2018 9:56 AM) Glucose 91 65 - 99 mg/dL [facility] Comment: ELMO Fasting reference interval BUN, whole blood 12 7 - 25 mg/dL [facility] Creatinine 0.90 0.50 - 1.10 mg/dL [facility] EGFR Non-Afr. [place]ian 83 > OR=60 mL/min/1.73m2 [facility] EGFR 96 > OR=60 mL/min/1.73m2 [facility] BUN/creatinine ratio NOT APPLICABLE 6 - 22 (calc) [facility] Sodium 140 135 - 146 mmol/L [facility] Potassium 4.4 3.5 - 5.3 mmol/L [facility] Chloride 107 98 - 110 mmol/L [facility] CO2 27 20 - 32 mmol/L [facility] Calcium 9.0 8.6 - 10.2 mg/dL [facility] Protein 6.8 6.1 - 8.1 g/dL [facility] Albumin, S 4.0 3.6 - 5.1 g/dL [facility] Globulin, total 2.8 1.9 - 3.7 g/dL (calc) [facility] Albumin/globulin ratio 1.4 1.0 - 2.5 (calc) [facility] Total bilirubin 0.7 0.2 - 1.2 mg/dL [facility] Alkaline phosphatase 114 33 - 115 U/L [facility] AST 15 10 - 30 U/L [facility] ALT 11 6 - 29 U/L [facility] EL[place] Narrative Performed At FASTING:YES [facility] FASTING: YES Other Results Text Performing Organization Information: Site ID: RGA Name: [facility] Address: [address] [place] [address] Director: Starla Lewis Performing Organization Address City/State/Zipcode Phone Number [facility] [place] [address] [place] [address] after 08/04/2017 Insurance Payer Benefit Subscriber ID Type Phone Address Plan / Group CIG[employer] CIGNA OPEN xxxxxxxxxxx HMO ACCESS/NET WORK
[2018-08-06] MEDS ORDERED: DEXTROSE 5%/0.45% SOD CHL 1,000 ML IV ONE (00:15)
[2018-08-06] MEDS: CEFTRIAXONE SOD 1 GM VIAL IV SCH (00:59)
[2018-08-06] MEDS ORDERED: ACETAMINOPHEN 325 MG TAB PO ONE ×3 (08:30→13:00)
[2018-08-06] MEDS ORDERED: BUTALBITAL-ASA1 EACH (14:25)
[2018-08-06] MEDS ORDERED: BUTALB-ACETAMI1 EACH (15:09)
[2018-08-06] MEDS ORDERED: ACETAMIN/BUTALBITAL/CAFFEINE TAB PO ONE (15:30)
[2018-08-06] MEDS ORDERED: ACETAMIN/BUTALBITAL/CAFFEINE TAB PO PRN (18:30)
[2018-08-06] MEDS ORDERED: TRULICITY 0.75 MG SQ SCH (18:45)
[2018-08-07] MEDS ORDERED: ONDANSETRON HCL INJ 2 MG/ML VIAL ONE (00:05)
[2018-08-07] MEDS ORDERED: DEXTROSE 10% 1,000 ML IV SCH (00:15)
[2018-08-07] MEDS: ONDANSETRON HCL INJ 2 MG/ML VIAL IV PRN ×2 (00:22→20:15)
[2018-08-07] MEDS: CEFTRIAXONE SOD 1 GM VIAL IV SCH (01:39)
[2018-08-07] MEDS: SERTRALINE HCL 50 MG TAB PO SCH (08:45)
[2018-08-07] MEDS: ARIPIPRAZOLE 2 MG TABLET PO SCH (08:45)
[2018-08-07] MEDS ORDERED: NON-FORMULARY MEDICATION (Aripiprazole (Abilify) 2 MG) PO SCH (09:00)
[2018-08-07] MEDS: INSULIN LISPRO 100 UNIT/1 ML 3ML VIAL SQ SCH ×3 (11:30→20:09)
[2018-08-07 12:01] LABS: FREE T4 (FREE THYROXINE) 0.84 ng/dL (0.9-1.8); THYROID STIMULATING HORMONE 0.734 uIU/mL (0.350-4.940)
[2018-08-07 12:13] VITALS: BP 109/73
[2018-08-07 13:27] VITALS: BP 109/73
--- NOTE | 2018-08-07 13:35 | Consultation ---
DATE OF CONSULTATION: August 07, 2018 ENDOCRINE CONSULTATION PATIENT OF: Dr. Lyons. Thank you very much for referring this patient. HISTORY OF PRESENT ILLNESS: This is a 33-year-old white female who is referred to me for evaluation of hypoglycemia. Patient has been having recurrent episodes of low blood sugars particularly after the meal. Patient has a very significant history of having a gastric bypass surgery for obesity. She lost about 100 plus pounds, and she has been having recurrent episodes of low blood sugars. Patient is not a known diabetic. She had history of hyperlipidemia and hypertension before the bypass surgery was done. Presently, she is seeing an colors custodian in [facility] and he has been put on Trulicity. There is no history of any seizure activity associated with these hypoglycemic episodes. PHYSICAL EXAMINATION GENERAL: Today, the patient is alert, awake, a little bit apprehensive. VITAL SIGNS: Heart rate is around 70, blood pressure is 120/80 mmHg. HEENT: Essentially unremarkable. Thyroid is palpable. Clinically, she is near euthyroid. CHEST: Bilateral vesicular breathing. No rales heard. CARDIOVASCULAR: First and second heart sounds. There is no 3rd or 4th heart sound. Ejection sound grade 2/6. Patient has evidence of mild pedal edema. CLINICAL IMPRESSION: Hypoglycemia, most probably related to gastric bypass surgery as well as dumping syndrome. PLAN: The plan at this time is to monitor her blood sugars. We will also do C-peptide levels if needed. Patient needs a dietary consult and split her meals into 5 to 6 small meals a day. She also needs some more diabetic education. Thanks for referring this patient. I will be following this patient with you. Job#: [id number]
[2018-08-07 17:05] VITALS: BP 120/83
[2018-08-07] MEDS: DEXTROSE 5% 1,000 ML IV SCH (18:35)
[2018-08-07 20:00] VITALS: BP 113/76
[2018-08-07 21:00] VITALS: BP 113/76
[2018-08-08] VITALS: BP 108/73
[2018-08-08] MEDS: CEFTRIAXONE SOD 1 GM VIAL IV SCH (00:09)
[2018-08-08 04:00] VITALS: BP 119/80
[2018-08-08] MEDS: INSULIN LISPRO 100 UNIT/1 ML 3ML VIAL SQ SCH ×3 (07:30→16:30)
[2018-08-08 08:19] VITALS: BP 107/81
[2018-08-08] MEDS: SERTRALINE HCL 50 MG TAB PO SCH (08:49)
[2018-08-08] MEDS: ARIPIPRAZOLE 2 MG TABLET PO SCH (09:14)
[2018-08-08 09:34] VITALS: BP 107/81
[2018-08-08] MEDS: DEXTROSE 5% 1,000 ML IV SCH (10:40)
[2018-08-08 12:00] VITALS: BP 106/78
[2018-08-08 17:14] VITALS: BP 119/81
--- NOTE | 2018-08-08 18:35 | Discharge Summary ---
Patient is a 33-year-old female with past medical history positive for gastric bypass, history cholecystectomy, hysterectomy, who came recently to the emergency room with low blood sugar. Patient was started on D5W drip. Patient was seen by Dr. Quintanilla, endocrinology. He discontinued the IV fluids and then the blood sugar still under control in the 80s. We are going to monitor blood sugar for few more hours. If the blood sugar does not drop below 60, the patient might be able to go home. PHYSICAL EXAM VITAL SIGNS: Blood pressure 108/81, temperature 97.9, heart 84 per minute, respiratory rate 18 per minute, oxygen saturation 99%. HEART: Regular rhythm. Normal S1, S2 sounds. LUNGS: Clear bilaterally. ABDOMEN: Soft. EXTREMITIES: Show no evidence of cyanosis, edema, or trauma. BLOOD WORK: On the BMP; sodium 136, potassium 3.9, chloride 104, CO2 of 25, BUN 14, creatinine 0.86, glucose is 88. On the CBC; white blood count 7.83, hemoglobin 12.8, hematocrit 38.9, platelet count 318,000. AST 14, ALT 11, total bilirubin 0.6, alkaline phosphatase 104. FINAL IMPRESSION: Episode of hypoglycemia, most likely secondary to history of gastric bypass. Patient is going home today if okay with Dr. Quintanilla who has already dismissed the patient to go home. Follow up with Dr. Payne, her primary care physician and Dr. Quintanilla, marketing support manager. Continue with Abilify 2 mg daily that she was taking at home and sertraline 100 mg daily. Discharge is okay if the blood sugar more than 70. SERGEY CANADA MD Job#: [id number] [place]
== END 2018-08-08 18:10 | disposition home or self-care (01) ==
LOC: ER 21:15 → ERHOLD 23:57 → INTOOBSV 23:57 → MED/SURG2 08-07 12:05
DX: K91.1 Postgastric surgery syndromes (principal); E16.2 Hypoglycemia, unspecified; Z98.84 Bariatric surgery status; Z98.0 Intestinal bypass and anastomosis status; F32.9 Major depressive disorder, single episode, unspecified; Z83.3 Family history of diabetes mellitus; Z82.49 Family history of ischemic heart disease and other diseases of the circulatory system; R55 Syncope and collapse; E78.5 Hyperlipidemia, unspecified; I10 Essential (primary) hypertension
CPT/HCPCS: 36415 ×4; 80053; 81001; 81025; 82948 ×4; 83036; 84439; 84443; 84681; 85025; 87086; 99284; G0378 ×4; J0696 ×2; J1885; J2405 ×2; J7030; J7070 ×2; J7799

== ENCOUNTER → 2019-02-26 | Day surgery (SDC) | payer OTHER ==
[~2019-02-26] MED LIST: ABILIFY5 MG PO; BUTALB-ACETAMI1 EACH; BUTALBITAL-ASA1 EACH; EFFEXOR XR 3737.5 MG PO; FENTANYL CITRATE/PF 100MCG/2 ML INJ ONE; HYOSCYAMINE SULFATE 0.5 MG/ML INJ ONE; MIDAZOLAM HCL 2 MG/2 ML VIAL ONE; PROPOFOL IV EMULSION 10 MG/ML 50 ML VIAL ONE; TRAZODONE HCL50 MG PO; TRULICITY SQ; ZOLOFT50 MG PO
--- OUTSIDE RECORDS SUMMARY | 2019-02-26 10:37 | XMS REPORT ---
Author Author [facility] Address Unknown Phone Unavailable Care Team Providers Care Obgyn Specialist Name Role Phone Unavailable Unavailable Problems This patient has no known problems. Allergies, Adverse Reactions, Alerts This patient has no known allergies or adverse reactions. Medications This patient has no known medications.
[2019-02-26 12:35] VITALS: BP 123/90
[2019-02-26 14:10] LABS: WBC,FECAL (FECAL LACTOFERRIN) NEGATIVE (NEGATIVE)
[2019-02-26 15:13] LABS: C DIFFICILE TOXIN A&B AMP PROB NEGATIVE (NEGATIVE)
--- NOTE | 2019-02-26 19:01 | Operative Report ---
DATE OF PROCEDURE: 02/26/2019 SURGEON: Sean Lyons MD PROCEDURES: Esophagogastroduodenoscopy with biopsies and colonoscopy with biopsies. INDICATIONS FOR EGD: Upper abdominal pain, nausea, and vomiting. INDICATIONS FOR COLONOSCOPY: Lower abdominal pain, intermittent bouts of diarrhea. MEDICATIONS: The patient was done under MAC, please see anesthesiologist's note. PROCEDURE IN DETAIL: With the patient in left lateral decubitus position, a flexible fiberoptic Olympus gastroscope was introduced into the esophagus under direct visualization without any difficulty. There was some patchy erythema noted in the distal esophagus. The scope was then advanced with ease into the stomach and the patient is apparently status post Chin-en-Y. Anastomosis was for approximately 4 cm distal to the GE junction. Anastomosis was intact. There was no evidence of marginal ulcers. The scope was then advanced into the efferent loop and there were some mild inflammatory changes with some edema and patchy erythema and biopsies were obtained. The scope was then withdrawn back into the stomach and retroflexed and the cardia appeared to be within normal limits. There were some postoperative changes noticed. The scope was then straightened out, it was subsequently withdrawn. The patient tolerated procedure well. IMPRESSION: 1. Mild distal esophagitis. 2. Status post Chin-en-Y, anastomosis intact. 3. Mild inflammatory changes in efferent loop, biopsies obtained. PLAN: Follow up histology. Initiate Protonix 40 mg one p.o. q.a.m. before meals. The patient was then turned around. After adequate lubrication of the anal canal, flexible fiberoptic Olympus colonoscope was inserted into the rectum with ease and advanced all the way to the cecum. Mucosa overlying the cecum appeared to be within normal limits. The ileocecal valve was intubated and the scope was advanced into the terminal ileum. Biopsies were obtained. The scope was then withdrawn back into the colon. It was then withdrawn slowly and mucosa overlying the ascending and the transverse colon appeared to be within normal limits. Mild patchy inflammatory changes were noted in the left colon and random biopsies were obtained. The scope was then retroflexed into the distal rectum and small internal hemorrhoids were noted none of which was actively bleeding. The scope was then straightened out, it was subsequently withdrawn after securing an adequate stool specimen that was sent for the appropriate stool studies. The patient tolerated procedure well. IMPRESSION: 1. Mild patchy inflammatory changes in left colon. 2. Internal hemorrhoids, none actively bleeding. PLAN: Followup histology. Followup stool studies. Start Bentyl 10 mg one p.o. t.i.d. and VSL #3 one p.o. daily. Sean Lyons MD [facility] [place] /[id number] cc: Steven Payne DO
== END | disposition home or self-care (01) ==
LOC: OR 10:34
PROVIDERS: ATTEND Internal Medicine Gastroenterology
DX: K20.9 Esophagitis, unspecified (principal); K64.8 Other hemorrhoids; K52.9 Noninfective gastroenteritis and colitis, unspecified; R10.10 Upper abdominal pain, unspecified; R19.7 Diarrhea, unspecified; R14.0 Abdominal distension (gaseous); R11.2 Nausea with vomiting, unspecified; Z98.84 Bariatric surgery status; Z88.8 Allergy status to other drugs, medicaments and biological substances
CPT/HCPCS: 36415; 43239; 45380; 82948; 83630; 83993; 87045; 87177; 87328; 87493; J1980; J2250; J2704; 45378

== ENCOUNTER 2019-11-11 08:27 | Observation (INO) | payer OTHER ==
[2019-11-09 11:48] LABS: BASOPHILS % 0.3 % (0.0-1.0); EOSINOPHILS # (AUTO) 0.2 (0.0-0.4); EOSINOPHILS % 2.5 % (0.0-6.0); HEMATOCRIT 35.5 % (34.2-44.1); HEMOGLOBIN 10.6 g/dL (12.0-16.0); LYMPHOCYTES # (AUTO) 2.3 (1.0-3.2); LYMPHOCYTES % 32.2 % (18.0-39.1); MEAN CORPUSCULAR HEMOGLOBIN 22.3 pg (28-32); MEAN CORPUSCULAR HGB CONC 29.9 g/dL (31-35); MEAN CORPUSCULAR VOLUME 74.6 fL (81-99); MONOCYTES # (AUTO) 0.6 (0.2-0.8); MONOCYTES % 8.2 % (4.4-11.3); NEUTROPHILS % 56.1 % (38.7-80.0); PLATELET COUNT 316 x10e3/uL (140-360); RED BLOOD COUNT 4.76 x10e6/uL (3.6-5.1); RED CELL DISTRIBUTION WIDTH 14.8 % (11.7-14.4)
[2019-11-09 11:58] LABS: INR 0.91; PROTHROMBIN TIME 12.7 seconds (11.9-14.5)
[2019-11-09 11:59] LABS: PARTIAL THROMBOPLASTIN TIME 27.2 seconds (23.8-35.5)
[2019-11-09 12:02] LABS: ANION GAP 13.2 mmol/L (8-16); CALCIUM 8.9 mg/dL (8.4-10.2); CARBON DIOXIDE 23 mmol/L (22-29); CHLORIDE 106 mmol/L (98-107); EST GLOMERULAR FILTRATION RATE > 60 ML/MIN (60-); GLUCOSE 84 mg/dL (74-118); POTASSIUM 4.2 mmol/L (3.5-5.1); SODIUM 138 mmol/L (136-145)
--- NOTE | 2019-11-09 12:39 | Diagnostic Imaging Report ---
EXAMINATION: CHEST 2 VIEWS INDICATION: Pre-operative COMPARISON: None FINDINGS: LINES/TUBES:None LUNGS:The lungs are well-inflated. No focal consolidation or pulmonary edema. PLEURA:No pleural effusion or pneumothorax. MEDIASTINUM:The cardiomediastinal silhouette appears normal in size and shape. BONES/SOFT TISSUES:No acute osseous injury. ABDOMEN:No free air under the diaphragm. IMPRESSION: No focal pneumonia or pulmonary edema. Signed by: Nii Williamson MD on 11/09/2019 12:36 PM
[2019-11-09 12:49] LABS: BLOOD UREA NITROGEN 12 mg/dL (7-26); BUN/CREATININE RATIO 13 (6-25)
[~2019-11-11] VITALS: Ht 167.6 cm; Wt 61.2 kg
[~2019-11-11 08:27] MED LIST changes: +ACETAMINOPHEN 1000 MG/100 ML 100 ML IV ONE; +ELIQUIS5 MG PO; -FENTANYL CITRATE/PF 100MCG/2 ML INJ ONE; -HYOSCYAMINE SULFATE 0.5 MG/ML INJ ONE; +IBUPROFEN 800MG/ 200ML 200 ML IV ONE; +LIDOCAINE HCL (LTA) 4 ML SOLN ONE; -MIDAZOLAM HCL 2 MG/2 ML VIAL ONE; -PROPOFOL IV EMULSION 10 MG/ML 50 ML VIAL ONE
[2019-11-11] MEDS ORDERED: CEFAZOLIN SOD 1 GM/NS 50ML 50 ML IV ONE (09:10)
[2019-11-11] MEDS ORDERED: THROMBIN FOR SOLN 5,000 UNIT VIAL ONE (09:17)
[2019-11-11] MEDS ORDERED: BUPIVACAINE 0.5%/EPI 30 ML SDV INJ ONE (09:17)
[2019-11-11] MEDS ORDERED: BACITRACIN 50,000 UNIT VIAL ONE (09:18)
[2019-11-11] MEDS ORDERED: ACETAMINOPHEN 325 MG TAB PO PRN (12:45)
[2019-11-11] MEDS ORDERED: CEPACOL SORE THROAT LOZENGES PO PRN (12:45)
[2019-11-11] MEDS ORDERED: MAGNESIUM/ALUMINUM/SIMETHICONE 30 ML UDC PO PRN (12:45)
[2019-11-11] MEDS ORDERED: ZOLPIDEM TARTRATE 5 MG TAB PO PRN (12:45)
[2019-11-11] MEDS ORDERED: PROMETHAZINE HCL (IM) 25 MG/ML VIAL IM PRN (12:45)
[2019-11-11] MEDS ORDERED: MEPERIDINE HCL INJ 25 MG/ML VIAL ONE (12:53)
[2019-11-11] MEDS ORDERED: FENTANYL CITRATE/PF 100MCG/2 ML INJ ONE ×2 (13:26→19:22)
[2019-11-11] MEDS ORDERED: KETOROLAC TROMETHAMINE 30 MG/ML VIAL ONE (14:17)
[2019-11-11 14:48] VITALS: BP 125/84
[2019-11-11 14:57] VITALS: BP 125/84
[2019-11-11 14:59] VITALS: BP 128/92
[2019-11-11] MEDS: LACTATED RINGER'S 1,000 ML IV SCH ×2 (15:11→21:33)
[2019-11-11] MEDS: OXYCODONE/ACETAMINOPHEN 5-325 1 EACH TABLET PO PRN (15:11)
[2019-11-11] MEDS: CARISOPRODOL 350 MG TAB PO PRN ×2 (15:11→20:14)
[2019-11-11] MEDS: CEFAZOLIN SOD 1 GM/NS 50ML 50 ML IV SCH ×2 (15:11→21:33)
[2019-11-11] MEDS ORDERED: GLYCOPYRROLATE INJ 0.2 MG/ML VIAL ONE (18:33)
[2019-11-11] MEDS ORDERED: ONDANSETRON HCL INJ 2MG/ML 2ML 2 MG/ML VIAL ONE (18:33)
[2019-11-11] MEDS ORDERED: DEXAMETHASONE SOD PHOS INJ 4 MG/ML VIAL ONE (18:33)
[2019-11-11] MEDS ORDERED: NEOSTIGMINE 1 MG/ML 10ML VIAL ONE (18:33)
[2019-11-11] MEDS ORDERED: ROCURONIUM BROMIDE 10 MG/ML 5ML VIAL ONE (18:33)
[2019-11-11] MEDS ORDERED: PROPOFOL IV EMULSION 10 MG/ML 20 ML VIAL ONE (18:33)
[2019-11-11] MEDS ORDERED: LIDOCAINE HCL 2% LOCAL INJ 5 ML SDV VIAL INJ ONE (18:33)
[2019-11-11] MEDS ORDERED: SEVOFLURANE INHAL SOLN 250 ML PEN BTL ONE (18:33)
[2019-11-11] MEDS ORDERED: MIDAZOLAM HCL 2 MG/2 ML VIAL ONE (19:22)
[2019-11-11] MEDS: HYDROMORPHONE 2MG/ML 2 MG/ML ML IV PRN ×2 (19:46→23:34)
[2019-11-11] MEDS: ONDANSETRON HCL INJ 2MG/ML 2ML 2 MG/ML VIAL IV PRN ×2 (19:47→23:34)
--- NOTE | 2019-11-11 19:50 | Operative Report ---
DATE OF PROCEDURE: 11/11/2019 SURGEON: Rigoberto Jett MD PREOPERATIVE DIAGNOSES: C5-6 and C6-C7 disk herniation and spondylosis with radiculopathy, M50.120. POSTOPERATIVE DIAGNOSES: C5-6 and C6-C7 disk herniation and spondylosis with radiculopathy, M50.120. PROCEDURES: 1. C5-6 anterior cervical diskectomy and microsurgical osteophyte resection and allograft fusion, 44293. 2. C6-C7 anterior cervical diskectomy and microsurgical osteophyte resection and allograft fusion, 33161. 3. Preparation of tricortical iliac crest allograft, 40782. 4. C5-C6 and C6-C7 anterior cervical plating with Synthes CSLP plate, [id number]. ANESTHESIA: General. INDICATIONS: The patient is a 34-year-old woman, who presents with C5-C6 and C6-C7 spondylosis and disk herniation symptomatic with right-sided cervical radiculopathy refractory to extensive conservative treatment. She was taken to surgery for two-level ACDF. PROCEDURE IN DETAIL: After induction of anesthesia, the patient was placed on the operating table in supine position. The right side of neck was prepped and draped in sterile fashion. The fluoroscopic C-arm was positioned in cross-table lateral orientation. A small transverse incision was created on the right side of neck superimposed on the C6 vertebral body as determined by fluoroscopy. The platysma was divided in line with the incision. A subplatysmal dissection was carried out and avascular plane of dissection was developed medially. Sternocleidomastoid muscle was followed medial to the carotid sheath to the anterior border of the cervical spine. The deep cervical fascia was opened. The esophagus was retracted to the left. The attachments of longus colli muscles to the anterolateral aspects of vertebral bodies of C5 and C6 and C7 were divided. The anterior longitudinal ligament was resected. [place] posts were inserted to C5 and C7 and the [place] distractor was used to distract both disk spaces simultaneously. The anterior annuli of the disks were incised with a #11 blade. The contents of both disks were thoroughly evacuated with curettes and pituitary rongeurs. The posterior osteophytes were meticulously drilled with a 2 mm cutting bur on a high-speed drill until they were completely removed. The posterior annulus of the disk, herniated disk material, and the posterior longitudinal ligament were resected layer by layer until the dura was fully exposed and decompressed. The medial aspects of the uncinate processes were resected bilaterally with particular attention given to the right side to further expose any compressed origins of the C6 nerve roots. After satisfactory decompression had been achieved, the endplates were prepared for fusion. Two pieces of tricortical iliac crest allograft were cut to the size and shapes of the disk spaces and were inserted into disk spaces under distraction and fluoroscopic guidance. The distraction was released and distraction posts were removed. A Synthes CSL piece small stature anterior cervical plate measuring 34 mm was selected and affixed to vertebral bodies of C5, C6 and C7 with three pairs of 14 x 4.35 mm screws. All screw holes were drilled and tapped on the lateral fluoroscopic guidance. All screws were locked with the appropriate locking screws and excellent construct was obtained. The wound was copiously irrigated with bacitracin solution. Meticulous hemostasis was secured. The retractor was removed. The platysma was closed with 3-0 Vicryl sutures. The skin was closed with 4-0 Monocryl sutures in subcuticular fashion. Steri-Strips and dressing were applied. The patient was awakened, extubated, and taken to postanesthesia care unit in stable condition. No intraoperative complications were encountered. ESTIMATED BLOOD LOSS: 30 mL. Rigoberto Jett MD [facility] /[id number]
[2019-11-11 20:00] VITALS: BP 114/73
[2019-11-12] VITALS (8 sets, daily range): BP systolic 106–121; BP diastolic 70–83
[2019-11-12] MEDS: CARISOPRODOL 350 MG TAB PO PRN ×3 (01:00→21:22)
[2019-11-12] MEDS: HYDROMORPHONE 2MG/ML 2 MG/ML ML IV PRN ×3 (03:59→12:13)
[2019-11-12] MEDS: ONDANSETRON HCL INJ 2MG/ML 2ML 2 MG/ML VIAL IV PRN (03:59)
[2019-11-12] MEDS: CEFAZOLIN SOD 1 GM/NS 50ML 50 ML IV SCH (05:30)
[2019-11-12] MEDS: LACTATED RINGER'S 1,000 ML IV SCH ×3 (06:51→23:50)
[2019-11-12] MEDS: VENLAFAXINE HCL 75 MG CAPCR PO SCH (08:11)
[2019-11-12] MEDS: TRAZODONE HCL 50 MG TAB PO SCH (08:11)
[2019-11-12] MEDS: ARIPIPRAZOLE 5 MG TABLET PO SCH (08:11)
[2019-11-12] MEDS: OXYCODONE/ACETAMINOPHEN 5-325 1 EACH TABLET PO PRN ×3 (09:14→21:21)
[2019-11-12] MEDS: MORPHINE SULFATE INJ 4 MG/ML INJ 1ML IM PRN (18:23)
[2019-11-12] MEDS ORDERED: DIPHENHYDRAMINE HCL 25 MG CAP PO PRN (20:45)
[2019-11-13] VITALS: BP 93/60
[2019-11-13] MEDS: MORPHINE SULFATE INJ 4 MG/ML INJ 1ML IM PRN (01:00)
[2019-11-13 04:00] VITALS: BP 105/65
[2019-11-13] MEDS: CARISOPRODOL 350 MG TAB PO PRN (05:16)
[2019-11-13] MEDS: OXYCODONE/ACETAMINOPHEN 5-325 1 EACH TABLET PO PRN ×2 (05:16→09:16)
[2019-11-13 08:06] VITALS: BP 114/73
[2019-11-13] MEDS: ARIPIPRAZOLE 5 MG TABLET PO SCH (08:31)
[2019-11-13] MEDS: VENLAFAXINE HCL 75 MG CAPCR PO SCH (08:32)
[2019-11-13] MEDS: TRAZODONE HCL 50 MG TAB PO SCH (08:37)
[2019-11-13 08:54] VITALS: BP 114/73
[2019-11-13] MEDS ORDERED: NORCO 7.5-3251 EACH PO (09:22)
== END 2019-11-13 09:53 | disposition home or self-care (01) ==
LOC: OR 08:27 → PACU V 12:37 → MED/SURG 14:40
PROVIDERS: ADMIT Neurological Surgery; ATTEND Neurological Surgery
DX: M50.120 Mid-cervical disc disorder, unspecified level (principal); Z01.810 Encounter for preprocedural cardiovascular examination; Z01.812 Encounter for preprocedural laboratory examination; Z01.811 Encounter for preprocedural respiratory examination; Z88.8 Allergy status to other drugs, medicaments and biological substances; Z79.01 Long term (current) use of anticoagulants; Z86.718 Personal history of other venous thrombosis and embolism
CPT/HCPCS: 36415; 71046; 80048; 82948; 85025; 85610; 85730; 86850; 86900; 88304; 93005; C1713; G0378; J0690; J1100; J1885; J2001; J2175; J2250; J2270; J2405; J2710; J3010; J7121

== ENCOUNTER → 2019-12-06 | Outpatient (CLI) | payer OTHER ==
[~2019-12-06] MED LIST changes: -ACETAMINOPHEN 1000 MG/100 ML 100 ML IV ONE; -IBUPROFEN 800MG/ 200ML 200 ML IV ONE; -LIDOCAINE HCL (LTA) 4 ML SOLN ONE; +NORCO 7.5-3251 EACH PO
--- NOTE | 2019-12-06 14:51 | Diagnostic Imaging Report ---
Exam: Cervical spine AP lateral flexion extension History: Cervical spine surgery Comparison: None. Findings: No fracture or malalignment. Anterior cervical discectomy and fusion of C5-C7 with anterior plate screw construct and interbody cage. No loosening. No hypermobility on flexion-extension. No abnormal soft tissue calcification or soft tissue defect. Impression: No acute osseous abnormality Anterior cervical discectomy and fusion of C5-C7. No complication. Signed by: Dr. Steven [place] M.D. on 12/06/2019 2:48 PM
== END ==
LOC: RAD 13:44
PROVIDERS: ATTEND Neurological Surgery
DX: M50.20 Other cervical disc displacement, unspecified cervical region (principal); M43.22 Fusion of spine, cervical region
CPT/HCPCS: 72050

== ENCOUNTER 2019-12-20 14:59 | Outpatient (RCR) | payer OTHER | END 2020-01-11 | LOC: PT 14:59 | PROVIDERS: ATTEND Neurological Surgery | DX: M50.80 Other cervical disc disorders, unspecified cervical region (principal); M54.12 Radiculopathy, cervical region ==

== ENCOUNTER 2020-01-09 19:51 | Emergency (ER) | payer OTHER ==
[~2020-01-09] VITALS: Ht 167.6 cm; Wt 61.2 kg
[2020-01-09] MEDS ORDERED: ONDANSETRON HCL INJ 2MG/ML 2ML 2 MG/ML VIAL IV STA (20:29)
[2020-01-09] MEDS ORDERED: SODIUM CHLORIDE 0.9% 1000ML 1,000 ML IV STA (20:29)
[2020-01-09] MEDS ORDERED: KETOROLAC TROMETHAMINE 30 MG/ML VIAL IV STA (20:29)
[2020-01-09 20:37] LABS: BASOPHILS % 0.5 % (0.0-1.0); HEMATOCRIT 32.3 % (34.2-44.1); HEMOGLOBIN 9.7 g/dL (12.0-16.0); LYMPHOCYTES # (AUTO) 2.4 (1.0-3.2); LYMPHOCYTES % 38.8 % (18.0-39.1); MEAN CORPUSCULAR HEMOGLOBIN 21.8 pg (28-32); MEAN CORPUSCULAR VOLUME 72.7 fL (81-99); MONOCYTES # (AUTO) 0.6 (0.2-0.8); MONOCYTES % 9.3 % (4.4-11.3); NEUTROPHILS # (AUTO) 3.2 (2.1-6.9); NEUTROPHILS % 51.1 % (38.7-80.0); PLATELET COUNT 377 x10e3/uL (140-360); RED BLOOD COUNT 4.44 x10e6/uL (3.6-5.1); RED CELL DISTRIBUTION WIDTH 14.9 % (11.7-14.4)
[2020-01-09 20:49] LABS: INR 0.94; PROTHROMBIN TIME 13.1 seconds (11.9-14.5)
[2020-01-09 20:50] LABS: PARTIAL THROMBOPLASTIN TIME 26.1 seconds (23.8-35.5)
[2020-01-09 20:53] LABS: CLARITY,URINE SL CLOUDY (CLEAR); COLOR,URINE YELLOW (YELLOW)
[2020-01-09 20:54] LABS: BILIRUBIN,URINE NEGATIVE (NEGATIVE); KETONES,URINE NEGATIVE (NEGATIVE); LEUKOCYTE ESTERASE ,URINE NEGATIVE (NEGATIVE); NITRITE,URINE NEGATIVE (NEGATIVE); PROTEIN,URINE DIPSTICK NEGATIVE (NEGATIVE); URINE UROBILINOGEN 0.2 mg/dL (0.2 - 1)
[2020-01-09 20:58] LABS: ALANINE AMINOTRANSFERASE 15 IU/L (0-55); ALBUMIN 3.6 g/dL (3.5-5.0); ALBUMIN/GLOBULIN RATIO 1.2 (0.8-2.0); ALKALINE PHOSPHATASE 102 IU/L (40-150); ANION GAP 12.8 mmol/L (8-16); BLOOD UREA NITROGEN 10 mg/dL (7-26); BUN/CREATININE RATIO 11 (6-25); CALCIUM 8.1 mg/dL (8.4-10.2); CARBON DIOXIDE 24 mmol/L (22-29); CHLORIDE 106 mmol/L (98-107); CREATINE KINASE 53 IU/L (29-168); CREATININE, SERUM 0.91 mg/dL (0.57-1.11); EST GLOMERULAR FILTRATION RATE > 60 ML/MIN (60-); GLUCOSE 89 mg/dL (74-118); POTASSIUM 3.8 mmol/L (3.5-5.1); SODIUM 139 mmol/L (136-145)
[2020-01-09 21:02] LABS: BACTERIA,URINE FEW /HPF; EPITHELIAL CELLS,URINE MODERATE /LPF; RBC,URINE 0-5 /HPF (0-5); WBC,URINE (MAN) 0-5 /HPF (0-5)
--- NOTE | 2020-01-09 21:47 | Diagnostic Imaging Report ---
EXAMINATION: CHEST SINGLE (PORTABLE) INDICATION: Palpitations COMPARISON: Chest x-ray 11/09/2019 FINDINGS: TUBES and LINES: None. LUNGS: Normal lung volumes. Lungs are clear. No consolidations. PLEURA: No pleural effusion or pneumothorax. HEART AND MEDIASTINUM: The cardiomediastinal silhouette is unremarkable. BONES AND SOFT TISSUES: No acute osseous lesion. Soft tissues are unremarkable. UPPER ABDOMEN: No free air under the diaphragm. IMPRESSION: No acute thoracic radiographic abnormality. Signed by: Tony Park DO on 01/09/2020 9:44 PM
[2020-01-09 22:36] VITALS: BP 135/90
== END 2020-01-09 22:37 | disposition home or self-care (01) ==
LOC: ER 19:51
DX: R00.2 Palpitations (principal); E11.9 Type 2 diabetes mellitus without complications; Z90.49 Acquired absence of other specified parts of digestive tract; Z83.3 Family history of diabetes mellitus; Z82.49 Family history of ischemic heart disease and other diseases of the circulatory system; I10 Essential (primary) hypertension; Z91.19 Patient's noncompliance with other medical treatment and regimen
CPT/HCPCS: 36415; 71045; 80053; 81001; 82550; 82553; 84484; 85025; 85610; 85730; 93005; 99284; J1885; J2405; J7030

== ENCOUNTER 2020-05-11 17:59 | Emergency (ER) | payer OTHER ==
[~2020-05-11] VITALS: Ht 167.6 cm; Wt 61.2 kg
--- NOTE | 2020-05-11 19:06 | Emergency Department Note ---
History of Present Illnes History of Present Illness Chief Complaint: Respiratory History of Present Illness This is a 35 year old female constant sob that started today with mid sternal chest tightness non radiating denies doing anything strenuous denies copd/asthma denies smoking hx of svt's and anemia. 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 . 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 Any updates have been documented here. Past Medical History Recent Fever: No Clinical Suspicion of Infectio: Yes New/Unexplained Change in Ment: No Past Medical History: Anemia Other Medical History: HYPOGLYCEMIA SVT Past Surgical History: Cholecysctectomy, Hysterectomy Other Surgery: GASTRIC BYPASS ACDF Social History Smoking Cessation: Never Smoker Alcohol Use: None Any Illegal Drug Use: No Physically hurt or threatened: No Family History Family history of heart diseas: No Other Last Tetanus: UTD Review of Systems Review of Systems Constitutional: Reports as per HPI EENTM: Reports no symptoms Cardiovascular: Reports no symptoms Respiratory: Reports as per HPI Gastrointestinal: Reports as per HPI Genitourinary: Reports no symptoms Musculoskeletal: Reports no symptoms Integumentary: Reports no symptoms Neurological: Reports no symptoms Psychological: Reports no symptoms Endocrine: Reports no symptoms Hematological/Lymphatic: Reports no symptoms Physical Exam Related Data Allergies: Coded Allergies: enoxaparin (Verified Allergy, Severe, 08/05/18) Triage Vital Signs Vital Signs Date Time Temp Pulse Resp B/P (MAP) Pulse Ox O2 Delivery O2 Flow Rate FiO2 05/11/20 18:07 85.0 85 22 125/94 98 Room Air Vital signs reviewed: Yes Physical Exam CONSTITUTIONAL Constitutional: Present well-developed, Present well-nourished; Absent distressed HENT HENT: Present normocephalic, Present atraumatic, Present oropharynx clear/moist, Present nose normal HENT L/R: Present left ext ear normal, Present right ext ear normal EYES Eyes: Reports PERRL, Reports conjunctivae normal NECK Neck: Present ROM normal PULMONARY Pulmonary: Present effort normal, Present breath sounds normal CARDIOVASCULAR Cardiovascular: Present regular rhythm, Present heart sounds normal, Present capillary refill normal, Present normal rate GASTROINTESTINAL Abdominal: Present soft, Present nontender, Present bowel sounds normal GENITOURINARY Genitourinary: Present exam deferred SKIN Skin: Present warm, Present dry MUSCULOSKELETAL Musculoskeletal: Present ROM normal NEUROLOGICAL Neurological: Present alert, Present oriented x 3, Present no gross motor or sensory deficits PSYCHOLOGICAL Psychological: Present mood/affect normal, Present judgement normal Results Imaging Imaging results reviewed: Yes Impressions Procedure: [id number] DX/CHEST SINGLE (PORTABLE) Exam Date: 05/11/20 Exam Time: 183 REPORT STATUS: Signed EXAMINATION: CHEST SINGLE (PORTABLE) INDICATION: Cough. COMPARISON: Chest x-ray on 01/09/2020. FINDINGS: TUBES and LINES: None. LUNGS: Normal lung volumes. There is hazy opacification of the bilateral lung bases, left more to right. PLEURA: No pleural effusion or pneumothorax. HEART AND MEDIASTINUM: The cardiomediastinal silhouette is unremarkable. BONES AND SOFT TISSUES: No acute osseous lesion. Soft tissues are unremarkable. UPPER ABDOMEN: No free air under the diaphragm. IMPRESSION: Hazy opacification the bilateral lung bases which may represent atelectasis and/or pneumonia in the proper clinical setting. Signed by: Tavares Carson MD on 05/11/2020 7:28 PM Dictated By: TAVARES CARSON MD 27 Transcribed By: BENJAMIN on 05/11/201927 COPY TO: KARIN HOLM MD~ Procedures 12 Lead ECG Interpretation ECG Interpretation : ECG: ECG 1 [place]: Interpreted by ED physician Date: May 11, 2020 Time: 19:03 Rhythm: sinus rhythm Rate: normal BPM: 82 QRS axis: normal Conduction: incomplete RBBB ST segments normal: Yes T waves normal: Yes Other findings: no other findings Clinical Impression: non-specific ECG Assessment & Plan Medical Decision Making MDM PT WITH COVID 19 SYMPTOMS CXR ORDERED TO EVAL FOR VIRAL PNEUMONIA Assessment & Plan Final Impression: (1) Viral pneumonia (2) Suspected COVID-19 virus infection Depart Disposition: HOME, SELF-CARE Last Vital Signs Date Time Temp Pulse Resp B/P (MAP) Pulse Ox O2 Delivery O2 Flow Rate FiO2 05/11/20 18:07 85.0 85 22 125/94 98 Room Air Home Meds Reported Medications Hydrocodone Bit/Acetaminophen (NORCO 7.5-325 TABLET) 1 Each Tablet, 1 EA PO Q6H for PRN pain, TAB 11/13/19 Apixaban (Eliquis) 5 Mg Tablet, 5 MG PO DAILY 11/09/19 Venlafaxine Hcl* (EFFEXOR XR 37.5MG CAPCR*) 37.5 Mg Capcr, 225 MG PO DAILY 02/24/19 Trazodone Hcl (TRAZODONE HCL) 50 Mg Tablet, 100 MG PO DAILY, #30 TAB 02/24/19 Aripiprazole (ABILIFY) 5 Mg Tablet, 10 MG PO DAILY, #30 TAB 08/05/18 KARIN HOLM MD May 11, 2020 19:06
--- NOTE | 2020-05-11 19:31 | Diagnostic Imaging Report ---
EXAMINATION: CHEST SINGLE (PORTABLE) INDICATION: Cough. COMPARISON: Chest x-ray on 01/09/2020. FINDINGS: TUBES and LINES: None. LUNGS: Normal lung volumes. There is hazy opacification of the bilateral lung bases, left more to right. PLEURA: No pleural effusion or pneumothorax. HEART AND MEDIASTINUM: The cardiomediastinal silhouette is unremarkable. BONES AND SOFT TISSUES: No acute osseous lesion. Soft tissues are unremarkable. UPPER ABDOMEN: No free air under the diaphragm. IMPRESSION: Hazy opacification the bilateral lung bases which may represent atelectasis and/or pneumonia in the proper clinical setting. Signed by: Tavares Rivas MD on 05/11/2020 7:28 PM
[2020-05-11 20:17] VITALS: BP 127/79
--- OUTSIDE RECORDS SUMMARY | 2020-05-12 20:59 | XMS REPORT | Clinical Summary ---
Author Author [facility] Address Unknown Phone Unavailable Care Team Providers Care Sugar Coating Hand Name Role Phone Steven Payne MD PCP Allergies Comments Active Allergy Reactions Severity Noted Date Enoxaparin Hives 04/17/2016 Medications End Date Status Medication Sig Dispensed Refills Start Date Active ARIPiprazole (ABILIFY) 2 Take 2 mg by 0 04/06 / MG tablet mouth once 6 daily. Active traZODone (DESYREL) 50 MG Take 50 mg by 0 tablet mouth nightly. Active apixaban (ELIQUIS) 5 mg Take 5 mg by 0 tablet mouth daily. Active venlafaxine (EFFEXOR) 25 Take 225 mg 0 MG tablet by mouth nightly. Active methocarbamol (ROBAXIN) Take 1 tablet 20 tablet 0 500 MG tablet (500 mg 9 total) by mouth 3 (three) times a day as needed for muscle spasms for up to 20 doses. Active ondansetron ODT Take 1 tablet 20 tablet 0 05/16/20 1 (ZOFRAN-ODT) 4 MG (4 mg total) 9 disintegrating tablet by mouth every 8 (eight) hours as needed for nausea or vomiting for up to 20 doses. 06/08/2019 sucralfate (CARAFATE) 100 Take 10 mL (1 1200 mL 0 mg/mL suspension g total) by 9 mouth 4 (four) times a day for 30 days. 06/16/2019 pantoprazole (PROTONIX) Take 1 tablet 30 tablet 0 40 MG EC tablet (40 mg total) 9 by mouth daily for 30 days. 05/30/2019 traMADol (ULTRAM) 50 mg Take 1 tablet 20 tablet 0 tablet (50 mg total) 9 by mouth every 6 (six) hours as needed for severe pain for up to 20 doses. Active Problems Problem Noted Date Abnormal liver enzymes 05/28/2019 Epigastric pain 05/09/2019 Abdominal pain 05/09/2019 Abdominal pain, acute, epigastric 04/30/2019 Esophageal dysphagia 04/30/2019 Overview: Added automatically from request for anaid [email or web address] [id number] Status post gastric bypass for obesity 09/09/2016 Hypoglycemia after GI (gastrointestinal) surgery 04/2016 Encounters Care Team Description Date Type Specialty Marilyn White MA 08/30/2019 Telephone Gastroenterology José Manuel Henry MD Postop check (Primary Dx) 06/23/2019 Office Visit General Surgery Osmin Mancia MD Reardon, Patrick Ray, MD Postop check (Primary Dx) 06/02/2019 Office Visit General Surgery Jason Bolanos MD Abdominal pain, acute, epigastric (Prima ry Dx); Status post gastric bypass for obesity; Abnormal liver enzymes 05/28/2019 Office Visit Gastroenterology Marilyn White MA 05/24/2019 Telephone Gastroenterology Marilyn White MA 05/20/2019 Telephone Gastroenterology Marilyn White MA 05/17/2019 Telephone Gastroenterology José Manuel Henry MD EXPLORATORY LAPAROSCOPY WITH GASTROTOMY AND GASTRORRHAPHY 05/13/2019 Surgery General Surgery Danica Camp MD Crawley, Teri, NP 05/13/2019 Anesthesia General Surgery Event Rehrer, DO Ronald Carrera Kodavayour Sethuraman, MD Gonzalez, Maria Guillermina, MD Epigastric pain (Primary Dx); Abdominal pain; Abdominal pain, acute, epigastric 05/08/2019 Hospital Cardiology - Encounter 05/16/2019 after 05/11/2019 Family History Medical History Relation Name Comments Diabetes Father Abdulaziz mary Kidney cancer Father Abdulaziz possible mary Hypertension [...] Sister Alive Sister Alive Sister Social History Date Tobacco Use Types Packs/Day Years Used Never Smoker Smokeless Tobacco: Never Used Drinks/Week oz/Week Comments Alcohol Use No Sex Assigned at Date Recorded Not on file Industry Job Start Date Occupation Not on file Not on file Not on file Travel End Travel History Travel Start No recent travel history available. Last Filed Vital Signs Reading Time Taken Comments Vital Sign 121/71 06/23/2019 9:35 AM CDT Blood Pressure 75 06/23/2019 9:35 AM CDT Pulse 36.5 C (97.7 F) 06/23/2019 9:35 AM CDT Temperature 16 06/23/2019 9:35 AM CDT Respiratory Rate 95% 05/16/2019 7:00 AM CDT Oxygen Saturation - - Inhaled Oxygen Concentration 69.3 kg (152 lb 12.8 oz) 06/23/2019 9:35 AM CDT Weight 167.6 cm (5' 6") 06/23/2019 9:35 AM CDT Height 24.66 06/23/2019 9:35 AM CDT Body Mass Index Plan of Treatment Health Maintenance Due Date Last Done Comments CERVICAL CANCER SCREENING 2004 INFLUENZA VACCINE 05/13/2020 05/13/2019, 06/24/2018 Procedures Comments Procedure Name Priority Date/Time Associated Diag nosis POC GLUCOSE Routine 05/16/2019 8:05 AM CDT ESTIMATED GFR Routine 05/16/2019 4:45 AM CDT ANTI XA, UNFRACTIONATED Routine 05/16/2019 4:45 AM CDT COMPREHENSIVE METABOLIC Routine 05/16/2019 PANEL 4:45 AM CDT HC COMPLETE BLD COUNT Routine 05/16/2019 W/AUTO DIFF 4:45 AM CDT ANTI XA, UNFRACTIONATED Routine 05/15/2019 10:45 PM CDT XR ABDOMEN 1 VW Routine 05/15/2019 6:56 PM CDT POC GLUCOSE Routine 05/15/2019 4:28 PM CDT ANTI XA, UNFRACTIONATED Timed 05/15/2019 2:55 PM CDT POC GLUCOSE Routine 05/15/2019 12:32 PM CDT ESTIMATED GFR STAT 05/15/2019 12:15 PM CDT HC COMPLETE BLD COUNT STAT 05/15/2019 W/AUTO DIFF 12:15 PM CDT BASIC METABOLIC PANEL STAT 05/15/2019 12:15 PM CDT HEPATIC FUNCTION PANEL STAT 05/15/2019 12:15 PM CDT POC GLUCOSE Routine 05/15/2019 7:25 AM CDT HC COMPLETE BLD COUNT Routine 05/15/2019 W/AUTO DIFF 4:50 AM CDT ESTIMATED GFR Routine 05/15/2019 4:00 AM CDT COMPREHENSIVE METABOLIC Routine 05/15/2019 PANEL 4:00 AM CDT POC GLUCOSE Routine 05/14/2019 9:47 PM CDT POC GLUCOSE Routine 05/14/2019 1:44 PM CDT ESTIMATED GFR Routine 05/14/2019 4:00 AM CDT COMPREHENSIVE METABOLIC Routine 05/14/2019 PANEL 4:00 AM CDT HC COMPLETE BLD COUNT Routine 05/14/2019 W/AUTO DIFF 3:48 AM CDT ESTIMATED GFR STAT 05/13/2019 10:50 PM CDT HC COMPLETE BLD COUNT STAT 05/13/2019 W/AUTO DIFF 10:50 PM CDT BASIC METABOLIC PANEL STAT 05/13/2019 10:50 PM CDT POC GLUCOSE Routine 05/13/2019 10:44 PM CDT OR FL < 1 HOUR Routine 05/13/2019 Abdominal pain 9:30 PM CDT DE AN ELECTIVE Routine 05/13/2019 ENDOTRACHEAL AIRWAY 7:31 PM CDT Procedure Note - Bonita Wolfe CRNA - 05/13/2019 7:31 PM CDT Airway Date/Time: 05/13/2019 7:19 PM Performed by: Bonita Wolfe CRNA Authorized by: Danica Camp MD Location: OR Urgency: Elective Difficult Airway: No Preoxygena cadence with 100% O2: Yes C-spine Precaution s Maintained Throughout : Yes Mask Ventilatio n: Easy mask Final Airway Type: Endotrache al airway Final Endotrache al Airway: ETT Cuffed: Yes Technique Used: Direct laryngosco py Devices/Me thods Used in Placement: Intubatin g stylet Insertion Site: Oral Blade Type: Leon Laryngosco pe Blade/Vide olaryngosc ope Blade Size: 2 ETT Size (mm): 7.0 Cuff at minimum occlusion pressure: Yes Measured from: Lips ETT to Lips (cm): 21 Placement Verified by: CO2 detection and direct visualizat ion Laryngosco pic view: Grade I - full view of glottis Rapid Sequence Induction (RSI): No Modified RSI: No Number of Attempts at Approach: 1 ERCP WITH FLUORO 05/13/2019 Abdominal pain 7:08 PM CDT Case Notes Tf~1800, STARTDR RAMBO SURGEON DOING ERCP,STAFF /EQUIPMENT COMING FROM DIGESTIVE DISEASE, LARGE C-ARM, DR HENRY (WORKING FIRST, EST 90 MIN) Special Needs Tf~1800, STARTDR RAMBO SURGEON DOING ERCP,STAFF /EQUIPMENT COMING FROM DIGESTIVE DISEASE, LARGE C-ARM, DR HENRY (WORKING FIRST, EST 90 MIN) LAPAROSCOPY, DIAGNOSTIC 05/13/2019 Abdominal lisa n 7:08 PM CDT Case Notes Tf~1800, STARTDR RAMBO SURGEON DOING ERCP,STAFF /EQUIPMENT COMING FROM DIGESTIVE DISEASE, LARGE C-ARM, DR HENRY (WORKING FIRST, EST 90 MIN) Special Needs Tf~1800, STARTDR RAMBO SURGEON DOING ERCP,STAFF /EQUIPMENT COMING FROM DIGESTIVE DISEASE, LARGE C-ARM, DR HENRY (WORKING FIRST, EST 90 MIN) POC GLUCOSE Routine 05/13/2019 1:10 PM CDT ANTI XA, UNFRACTIONATED Routine 05/13/2019 5:00 AM CDT CBC HEMOGRAM Routine 05/13/2019 5:00 AM CDT ANTI XA, UNFRACTIONATED Timed 05/12/2019 12:10 PM CDT ANTI XA, UNFRACTIONATED Routine 05/12/2019 5:08 AM CDT HC COMPLETE BLD COUNT Routine 05/12/2019 W/AUTO DIFF 5:08 AM CDT ESTIMATED GFR Routine 05/12/2019 4:00 AM CDT COMPREHENSIVE METABOLIC Routine 05/12/2019 PANEL 4:00 AM CDT ANTI XA, UNFRACTIONATED Timed 05/11/2019 9:15 PM CDT ANTI XA, UNFRACTIONATED Routine 05/11/2019 1:08 PM CDT ANTI XA, UNFRACTIONATED Routine 05/11/2019 5:15 AM CDT after 05/11/2019 Results * POC glucose (05/16/2019 8:05 AM CDT) Only the most recent of 8 results within the time period is included. [facility] POC glucose 87 65 - 99 mg/dL [facility] Comment: [facility] Notified RN HOSPITAL Meter ID: [id number] Quality Worker: Gualberto Kessler Specimen Performing Organization Address City/State/Zipcode Ph one Number [facility] DEPARTMENT OF [address] [place] [address] PATHOLOGY AND GENOMIC MEDICINE [facility] [address] [place] [address] HOSPITAL * Estimated GFR (05/16/2019 4:45 AM CDT) Only the most recent of 6 results within the time period is included. [facility] Estimated GFR 81 mL/min/1.73 m2 [facility] Comment: [facility] Interpretation G1 >=90 Normal or high G2 60-89 Mildly decreased G3a 45-59 Mildly to moderately decreased G3b 30-44 Moderately to severely decreased G4 15-29 Severely decreased G5 <15 Kidney failure The eGFR was calculated using the Chronic Kidney Disease Epidemiology Collaboration (CKD-EPI) equation. Interpretation is based on recommendations of the National Kidney Foundation-Kidney Disease Outcomes Quality Initiative (NKF-KDOQI) published in 2014. Specimen Plasma specimen Performing Organization Address City/[facility] Ph one Number [facility] DEPARTMENT OF [address] [place] [address] PATHOLOGY AND GENOMIC MEDICINE [address] * Anti Xa, unfractionated (05/16/2019 4:45 AM CDT) Only the most recent of 9 results within the time period is included. Pathologist [facility] Anti Xa, 0.43Comment: Therapeutic 0.30 - 0.70 U/mL JONATHAN STON unfractionated Range: 0.30 - 0.70 U/mL [facility] Specimen Blood Performing Organization Address [facility] Ph one Number [facility] [place] [address] PATHOLOGY AND GENOMIC MEDICINE [address] * CBC with platelet and differential (05/16/2019 4:45 AM CDT) Only the most recent of 6 results within the time period is included. Pathologist [facility] WBC 5.88 4.50 - 11.00 k/uL [facility] RBC 4.32 4.20 - 5.50 m/uL [facility] HGB 10.8 (L) 12.0 - 16.0 g/dL [facility] HCT 34.2 (L) 37.0 - 47.0 % [facility] MCV 79.2 (L) 82.0 - 100.0 fL [facility] MCH 25.0 (L) 27.0 - 34.0 pg [facility] MCHC 31.6 31.0 - 37.0 g/dL [facility] RDW - SD 40.2 37.0 - 55.0 fL [facility] MPV 10.1 8.8 - 13.2 fL [facility] Platelet count 300 150 - 400 k/uL [facility] Nucleated RBC 0.00 /100 WBC [facility] Neutrophils 49.7 39.0 - 69.0 % [facility] Lymphocytes 41.5 25.0 - 45.0 % [facility] Monocytes 7.8 0.0 - 10.0 % [facility] Eosinophils 0.0 0.0 - 5.0 % [facility] Basophils 0.5 0.0 - 1.0 % [facility] Immature 0.5Comment: "Immature 0.0 - 1.0 % [facility] granulocytes granulocytes" (promyelocytes, [facility] myelocytes, metamyelocytes) HOSPITAL Specimen Blood Performing Organization Address [facility]/Zipcode Ph one Number [facility] DEPARTMENT OF [address] [place] [address] PATHOLOGY AND GENOMIC MEDICINE [facility] [address] [place] [id number] [place] [address] * Comprehensive metabolic panel (05/16/2019 4:45 AM CDT) Only the most recent of 4 results within the time period is included. Sodium 138 135 - 148 mEq/L [facility] Potassium 3.8 3.5 - 5.0 mEq/L [facility] Chloride 99 98 - 112 mEq/L [facility] CO2 26 24 - 31 mEq/L [facility] Anion gap 13@ANIO 7 - 15 mEq/L [facility] BUN 10 6 - 20 mg/dL [facility] Creatinine 0.91 (H) 0.50 - 0.90 mg/dL [facility] Glucose 84 65 - 99 mg/dL [facility] Calcium 9.0 8.3 - 10.2 mg/dL [facility] Protein 6.5 6.3 - 8.3 g/dL [facility] Comment: [facility] 4.6-7.0 g/dL 1 week 4.4-7.6 g/dL 7 months-1year 5.1-7.3 g/dL 1-2 years 5.6-7.5 g/dL >3 years 6.0-8.0 g/dL 18-150 6.3-8.3 g/dL Albumin 3.2 (L) 3.5 - 5.0 g/dL [facility] A/G ratio 1.0 0.7 - 3.8 [facility] Alkaline 136 (H) 35 - 104 U/L [facility] phosphatase [facility] AST 49 (H) 10 - 35 U/L [facility] ALT 64 (H) 5 - 50 U/L [facility] Total bilirubin <0.2 0.0 - 1.2 mg/dL [facility] Specimen Plasma specimen Performing Organization Address City/[facility] Ph one Number [facility] DEPARTMENT OF [address] [place] [address] PATHOLOGY AND GENOMIC MEDICINE [facility] [address] [place] [id number] HOSPITAL * XR Abdomen 1 Vw (05/15/2019 6:56 PM CDT) Specimen Narrative Performed At XR ABDOMEN 1 VW [facility] CLINICAL INDICATION: Abd pain unspe cified COMPARISON: None. IMPRESSION: Mild gaseous distention of small bowel loops without transition. Mild gaseous distention of some large bowel loops wi th residual contrast from prior ERCP. The bowel gas pattern is nonspecific howeve r can relate to a mild ileus. All of may be of benefit. Clips in the right upper quadrant abdom en related prior cholecystectomy. There is no evidence for free intraperi toneal air. [facility] Procedure Note Interface, Radiology Results Incoming - 05/15/2019 8:34 PM CDT XR ABDOMEN 1 VW CLINICAL INDICATION: Abd pain unspecified COMPARISON: None. IMPRESSION: Mild gaseous distention of small bowel loops without transition. Mild gaseous distention of some large bowel loops with residual contrast from prior ERCP. The bowel gas pattern is nonspecific however can relate to a mild ileus. All of may be of benefit. Clips in the right upper quadrant abdomen related prior cholecystectomy. There is no evidence for free intraperitoneal air. [facility] Performing Organization Address [facility] Ph one Number [facility] [address] [place] [phone] * Hepatic function panel (05/15/2019 12:15 PM CDT) Albumin 3.4 (L) 3.5 - 5.0 g/dL [facility] Total bilirubin 0.3 0.0 - 1.2 mg/dL [facility] Bilirubin <0.2 0.0 - 0.3 mg/dL [facility] direct [facility] Alkaline 155 (H) 35 - 104 U/L [facility] phosphatase [facility] Protein 6.6 6.3 - 8.3 g/dL [facility] Comment: [facility] 4.6-7.0 g/dL 1 week 4.4-7.6 g/dL 7 months-1year 5.1-7.3 g/dL 1-2 years 5.6-7.5 g/dL >3 years 6.0-8.0 g/dL 18-150 6.3-8.3 g/dL ALT 81 (H) 5 - 50 U/L [facility] AST 93 (H) 10 - 35 U/L [facility] Specimen Plasma specimen Performing Organization Address City/[facility] Ph one Number [facility] DEPARTMENT OF [address] [place] [address] PATHOLOGY AND GENOMIC MEDICINE [address] * Basic metabolic panel (05/15/2019 12:15 PM CDT) Only the most recent of 2 results within the time period is included. Sodium 138 135 - 148 mEq/L [facility] Potassium 4.0 3.5 - 5.0 mEq/L [facility] Chloride 99 98 - 112 mEq/L [facility] CO2 26 24 - 31 mEq/L [facility] Anion gap 13@ANIO 7 - 15 mEq/L [facility] BUN 8 6 - 20 mg/dL [facility] Creatinine 0.84 0.50 - 0.90 mg/dL [facility] Glucose 84 65 - 99 mg/dL [facility] Calcium 9.1 8.3 - 10.2 mg/dL [facility] Specimen Plasma specimen Performing Organization Address City/[facility] Ph one Number [facility] DEPARTMENT OF [address] [place] [address] PATHOLOGY AND GENOMIC MEDICINE [address] * OR [place] < 1 Hour (05/13/2019 9:30 PM CDT) Specimen Narrative Performed At EXAMINATION: OR FL < 1 HOUR RADIANT C-arm fluoroscopy was requested in OR. LOCATION: [facility] 3 PROCEDURE: C-ARM FOR ERCP START: 1939 END: 2129 FL TIME: 02 MIN 04 SEC DOSE (mGy): 18.39 TECH: TD IMPRESSION: Separate operative report will be issue d by the physician performing the procedure. [id number] Procedure Note Hm Interface, Radiology Results Incoming - 05/14/2019 9:22 PM CDT EXAMINATION: OR FL < 1 HOUR C-arm fluoroscopy was requested in OR. LOCATION: [facility] 3 PROCEDURE: C-ARM FOR ERCP START: 1939 END: 0 FL TIME: 02 MIN 04 SEC DOSE (mGy): 18.39 TECH: TD IMPRESSION: Separate operative report will be issued by the physician performing the procedure. [id number] Performing Organization Address City/[facility]/Zipcode Ph one Number [facility] [address] [place] [place] [address] * CBC hemogram (05/13/2019 5:00 AM CDT) WBC 6.26 4.50 - 11.00 k/uL [facility] RBC 4.72 4.20 - 5.50 m/uL [facility] HGB 11.3 (L) 12.0 - 16.0 g/dL [facility] HCT 38.7 37.0 - 47.0 % [facility] MCV 82.0 82.0 - 100.0 fL [facility] MCH 23.9 (L) 27.0 - 34.0 pg [facility] MCHC 29.2 (L) 31.0 - 37.0 g/dL [facility] RDW - SD 41.0 37.0 - 55.0 fL [facility] MPV 9.7 8.8 - 13.2 fL [facility] Platelet count 336 150 - 400 k/uL [facility] Nucleated RBC 0.00 /100 WBC [facility] Specimen Blood Performing Organization Address [facility] Ph one [facility] DEPARTMENT OF [address] [place] [address] PATHOLOGY [place] [address] HOSPITAL after 05/11/2019 Insurance Type Payer Benefit Subscriber ID Effective Phone Address Plan / Dates Group O CIGNA CIGNA OPEN xxxxxxxxxxx 2016-P ACCESS/NET resent WORK
--- OUTSIDE RECORDS SUMMARY | 2020-05-12 20:59 | XMS REPORT | Clinical Summary ---
Author Author MIKEY [facility] Address Unknown Phone Unavailable Care Team Providers Care Quality Assurance Lead Name Role Phone Marissa Chavarria MD PCP Allergies Comments Active Allergy Reactions Severity Noted Date Enoxaparin 02/23/2019 Medications End Date Status Medication Sig Dispensed Refills Start Date Active ARIPiprazole (ABILIFY) 2 Take 2 mg by 0 02/11 MG tablet mouth daily. 9 Active venlafaxine (EFFEXOR-XR) Take 150 mg 0 02/08 150 MG 24 hr capsule by mouth 9 daily . Active venlafaxine (EFFEXOR-XR) Take 75 mg by 0 02/08 75 MG 24 hr capsule mouth daily . 9 Active Problems Not on file Immunizations Name Dates Previously Given Next Due DTaP 10/26/2018 Family History Medical History Relation Name Comments Diabetes Father Bladder Cancer Relation Name Status Comments Father Alive Mother Alive Sister Social History Date Tobacco Use Types Packs/Day Years Used Never Smoker Smokeless Tobacco: Never Used Alcohol Use Drinks/Week oz/Week Comments No Alcohol Habits Answer Date Recorded How often do you have a drink containing alcohol? Never 02/23/2019 How many drinks containing alcohol do you have on No t asked a typical day when you are drinking? How often do you have six or more drinks on one Not asked occasion? Sex Assigned at Date Recorded Not on file Industry Job Start Date Occupation Not on file Not on file Not on file Travel End Travel History Travel Start No recent travel history available. Last Filed Vital Signs Not on file Plan of Treatment Health Maintenance Due Date Last Done Comments CERVICAL CANCER SCREENING 2004 PAP ONLY (Age 21-65) INFLUENZA VACCINE (#1) 2020 Results Not on fileafter 05/11/2019 Insurance Payer Benefit Subscriber ID Type Phone Address Plan / Group CIGNA - MGD CARE CIGNA xxxxxxxxx HMO/POS HMO/POS/OP EN ACCESS
--- OUTSIDE RECORDS SUMMARY | 2020-05-12 21:00 | XMS REPORT | Continuity of Care Document ---
Author Author [facility] t Organization [facility] [place], [place] Address [address] [place] [address] Phone Unavailable Care Team Providers Care Tin Pot Operator Name Role Phone DO JARRED PAYNE DO PCP Mick HOLM Attphys Unavailable RM, CARMEL Attphys Unavailable ELIJAH RUIZ Attphys Unavailable Christopher LEE, Marilyn Attphys Unavailable Kalee SHELTON, Van Georges Attphys Siddhartha Mancia MD Attphys Luis Miguel SHELTON, Jason Attphys Dick Muñoz DO Attphys Ronald SHELTON, Sherrell Cage Attphys Meet SHELTON, Genny Mccord Attphys [phone] Zoë SHELTON, Miriam Mishra Attphys Nikhil CASTING WHEEL OPERATOR, Norma Attphys MARYLOU VELASCO Attphys Unavailable Payers Payer Name Policy Type Policy Number Effective Date Expiration Date Partha Garay o [id number] 2016 00:00:00 [facility] CIGNACIGNA OPEN ACCESS/NETWORKxxxxxxxxxxx2016-PresentO xxxxxxxxxxx 2016 00:00:00 [facility] Scientologist Problems Condition Name Condition Details Condition Category Status Onset Date Resolution Date Last Treatment Date Treating Clinician Comments Source Abnormal liver enzymes Abnormal liver enzymes Disease Active 2019-05-28 00:00:[address] Epigastric pain Epigastric pain Disease Active 2019-05-09 00:00:00 [facility] Scientologist Abdominal pain Abdominal pain Disease Active 2019-05-09 00:00:00 [facility] Scientologist Abdominal pain, acute, epigastric Abdominal pain, acute, epigast khadar Disease Active 2019-04-30 00:00:00 Angelique Scientologist Esophageal dysphagia Esophageal dysphagia Disease Active 00:00:00 Overview: Added automatically from reque [facility] for surgery [id number] [facility] Scientologist Status post gastric bypass for obesity Status post gastric b ypass for obesity Disease Active 2016-09-09 00:00:00 Jose Miguel Avendano Hypoglycemia after GI (gastrointestinal) surgery Hypog lycemia after GI (gastrointestinal) surgery Disease Active 2016-04-18 00:00[facility]00 [facility] Hypoglycemia Problem Active [facility] Suspected severe acute respiratory syndr ome coronavirus 2 (SARS-CoV-2) infection Problem Active [facility] Viral pneumonia Problem Active [facility] Allergies, Adverse Reactions, Alerts Allergy Name Allergy Type Status Severity Reaction(s) Onset Date Inacti ve Date Treating Clinician Comments Source enoxaparin DA Active [place] 2019-03-18 00:00:00 [facility] enoxaparin DA Active [place] 2019-03-10 00:00:00 [facility] Enoxaparin Propensity to adverse reactions Active 2019-02-10 4 00:00:00 [facility] Enoxaparin Allergy to substance Active Severe 2018-08-05 00:00:00 [facility] enoxaparin DA Active [place] 2018-06-04 00:00:00 [facility] Enoxaparin Propensity to adverse reactions to drug Active Hives 2016-04-17 00:00:00 Jose Miguel terry Family History Family Member Diagnosis Comments Start Date Stop Date Source Natural father Diabetes [facility] [place] Natural father Diabetes [facility] Natural father Kidney cancer Jose Miguel Avendano Maternal grandfather Hypertension Ho usjade Avendano Maternal grandmother Heart disease [place] Scientologist Natural mother No Known Problems Mik Avendano Other Heart disease [facility] Other Hypertension Jose Miguel Meth odist Other Ulcers Jose Miguel Method ist Paternal grandfather Cancer [place] Scientologist Natural sister No Known Problems Mik Avendano Social History Social Habit Start Date Stop Date Quantity Comments Source History SDOH Alcohol Std Drinks [facility] History SDOH Alcohol Binge [facility] Sex Assigned At Mik Avendano Alcohol intake 2019-06-23 00:00:00 2019-06-23 00:00:00 Current non-drinker of alcohol (finding) Jose Miguel Avendano History SDOH Alcohol Frequency 2019-02-23 00:00:00 2019-02-23 00:00:0 0 1 [facility] Smoking Status Start Date Stop Date Source Never smoker Jose Miguel terry Medications Ordered Medication Name Filled Medication Name Start Date Stop Da te Current Medication? Ordering Clinician Indication Dosage Frequency Signature (SIG) Comments Components Source traZODone (DESYREL) 50 MG tablet 2019-06-23 09:38:34 Yes 50mg QD Take 50 mg by mouth nightly. Jose Miguel Avendano apixaban (ELIQUIS) 5 mg tablet 2019-06-23 09:38:34 Yes 5mg Take 5 mg by mouth daily. Jose Miguel Avendano venlafaxine (EFFEXOR) 25 MG tablet 2019-06-23 09:38:34 Yes 225mg QD Take 225 mg by mouth nightly. Jose Miguel cleaning pantoprazole (PROTONIX) 40 MG EC tablet 00:00:00 2019-06-16 23:59:00 No 40mg QD Take 1 tablet (40 mg total) by mouth daily for 30 days. Jose Miguel Avendano methocarbamol (ROBAXIN) 500 MG tablet 2019-05-16 00:00:00 Yes 500mg Q.[id number] Take 1 tablet (500 mg total) by mouth 3 (three) times a day as needed for muscle spasms for up to 20 doses. Jose Miguel Avendano ondansetron ODT (ZOFRAN-ODT) 4 MG disintegrating tablet 2019-05-16 00:00:00 Yes 4mg Q8H Take 1 tablet ( 4 mg total) by mouth every 8 (eight) hours as needed for nausea or vomiting for up to 20 doses. Jose Miguel Avendano traMADol (ULTRAM) 50 mg tablet 2019-05-16 00:00:00 2019-05-30 23 :59:00 No 50mg Q6H Take 1 tablet (50 mg total) by mouth every 6 (six) hours as needed for severe pain for up to 20 doses. Jose Miguel Avendano sucralfate (CARAFATE) 100 mg/mL suspension 05-09 00:00:00 2019-06-08 23:59:00 No 1g Q.25D Take 10 mL (1 g total) by mouth 4 (four) times a day for 30 days. Jose Miguel Avendano ARIPiprazole (ABILIFY) 2 MG tablet 2019-02-11 00:00:00 Yes 2mg QD Take 2 mg by mouth daily. [facility] venlafaxine (EFFEXOR-XR) 150 MG 24 hr capsule 2019-02-08 00:00:0 0 Yes 150mg QD Take 150 mg by mouth daily . [facility] venlafaxine (EFFEXOR-XR) 75 MG 24 hr capsule 2019-02-08 00:00:00 Yes 75mg QD Take 75 mg by mouth daily . [facility] ARIPiprazole (ABILIFY) 2 MG tablet 2016 00:00:00 Yes 2mg QD Take 2 mg by mouth once daily. Jose Miguel terry Apixaban (Eliquis) 5 Mg TABLET Apixaban (Eliquis) 5 Mg TABLET Yes 5 Daily [facility] Aripiprazole (Abilify) 5 Mg TABLET Aripiprazole (Abilify) 5 Mg TABLET Yes 10 Daily [facility] Hydrocodone Bit/Acetaminophen ([place] 7.5-325 Tablet) 1 Each TABLET Hydrocodone Bit/Acetaminophen ([place] 7.5-325 Tablet) 1 Each TABLET Yes 1 Every 6 Hours for Prn Pain [facility] Trazodone Hcl Trazodone Hcl Yes 100 Daily [facility] Venlafaxine Hcl (Effexor Xr 37.5MG Capcr*) 37.5 Mg CAP CR Venlafaxine Hcl (Effexor Xr 37.5MG Capcr*) 37.5 Mg CAPCR Yes 225 Daily [facility] Sertraline Hcl (Zoloft) 50 Mg TABLET Sertraline Hcl (Zoloft) 50 Mg TABLET 2019-02-24 00:00:00 No 100 Daily [facility] Trulicity Trulicity 2018-08-07 00:00:00 No .75 Qweek [facility] Butalb/Acetaminophen/Caffeine (Nsfjev-Cgnkoims-Vwlm 50 -325-40) 1 Each TABLET Butalb/Acetaminophen/Caffeine (Pahgax-Dwmcdpzh-Zmgr 50-325-40) 1 Each TABLET 2018-08-06 00:00:00 No Daily [facility] Butalbital/Aspirin/Caffeine (Zvdwpywbag-Efr-Svzhdxrb C ap) 1 Each CAPSULE Butalbital/Aspirin/Caffeine (Pyldvhkpmy-Spy-Nrcubslt Cap) 1 Each CAPSULE 2018-08-06 00:00:00 No [facility] Immunizations Ordered Immunization Name Filled Immunization Name Date Status Comments Source DTaP 2018-10-26 00:00:[address] [facility] Vital Signs Vital Name Observation Time Observation Value Comments Source Body Temperature 2020-05-11 20:17:00 98.6 [degF] [facility] Weight 2020-05-11 18:07:00 135 [lb_av] [facility] BMI (Body Mass Index) 2020-05-11 18:07:00 21.8 kg/m2 [facility] Systolic blood pressure 2019-06-23 09:35:00 121 mm[Hg] Jose Miguel Avendano Diastolic blood pressure 2019-06-23 09:35:00 71 mm[Hg] Jose Miguel Avendano Heart rate 2019-06-23 09:35:00 75 /min Jose Miguel Avendano Body temperature 2019-06-23 09:35:00 36.5 Patricia Kassi Avendano Respiratory rate 2019-06-23 09:35:00 16 /min Kassi Avendano Body height 2019-06-23 09:35:00 167.6 cm Jose Miguel Avendano Body weight 2019-06-23 09:35:00 69.31 kg Jose Miguel Avendano BMI 2019-06-23 09:35:00 24.66 kg/m2 Jose Miguel Maddoxist Oxygen saturation in Arterial blood by Pulse oximetry 05-16 07:00:00 95 /min Jose Miguel Avendano Procedures Procedure Date / Time Performed Performing Clinician Sourc e SP BONE ALGRFT STRUCT ADD-ON 2019-11-11 00:00:00 [facility] NECK SPINE FUSE&REMOV BEL C2 2019-11-11 00:00:00 [facility] ADDL NECK SPINE FUSION 2019-11-11 00:00:00 [facility] INSERT SPINE FIXATION DEVICE 2019-11-11 00:00:00 [facility] X-ray of chest, two views 2019-11-09 00:00:00 ELIJAH RUIZ [facility] POC GLUCOSE 2019-05-16 08:05:00 Suri Dsouza HC COMPLETE BLD COUNT W/AUTO DIFF 2019-05-16 04:45:00 Rachana Montes De Oca COMPREHENSIVE METABOLIC PANEL 2019-05-16 04:45:00 Rachana Montes De Oca ANTI XA, UNFRACTIONATED 2019-05-16 04:45:00 Suri Dsouza ESTIMATED GFR 2019-05-16 04:45:00 Rachana Montes De Oca Meth odkay ANTI XA, UNFRACTIONATED 2019-05-15 22:45:00 Suri Dsouza XR ABDOMEN 1 VW 2019-05-15 18:56:20 Rachana Montes De Oca Meth odist POC GLUCOSE 2019-05-15 16:28:00 Suri Dsouza ANTI XA, UNFRACTIONATED 2019-05-15 14:55:00 Damon Holbrookist POC GLUCOSE 2019-05-15 12:32:00 Suri Dsouza HEPATIC FUNCTION PANEL 2019-05-15 12:15:00 Vo, Rachana Solitariot on Scientologist BASIC METABOLIC PANEL 2019-05-15 12:15:00 Vo, Rachana Solitarioto n Scientologist HC COMPLETE BLD COUNT W/AUTO DIFF 2019-05-15 12:15:00 Vo, Rachana Avendano ESTIMATED GFR 2019-05-15 12:15:00 Vo, Rachana Jose Miguel Meth odist POC GLUCOSE 2019-05-15 07:25:00 Suri Dsouza Scientologist HC COMPLETE BLD COUNT W/AUTO DIFF 2019-05-15 04:50:00 Vo, Rachana Avendano COMPREHENSIVE METABOLIC PANEL 2019-05-15 04:00:00 Vo, Rachana Avendano ESTIMATED GFR 2019-05-15 04:00:00 Vo, Rachana Gillespie Meth odist POC GLUCOSE 2019-05-14 21:47:00 Suri Dsouza Scientologist POC GLUCOSE 2019-05-14 13:44:00 Suri Dsouza Scientologist COMPREHENSIVE METABOLIC PANEL 2019-05-14 04:00:00 Nwokedi, Norah Avendano ESTIMATED GFR 2019-05-14 04:00:00 Suri Dsouza Scientologist HC COMPLETE BLD COUNT W/AUTO DIFF 2019-05-14 03:48:00 Nwokedi, U berenice Avendano BASIC METABOLIC PANEL 2019-05-13 22:50:00 WindyiDamon Scientologist HC COMPLETE BLD COUNT W/AUTO DIFF 2019-05-13 22:50:00 Nwokedi, U berenice Maddoxist ESTIMATED GFR 2019-05-13 22:50:00 Suri Dsouza POC GLUCOSE 2019-05-13 22:44:00 Suri Dsouza OR [place] < 1 HOUR 2019-05-13 21:30:00 NwchrisiDamon [place] AN ELECTIVE ENDOTRACHEAL AIRWAY 2019-05-13 19:31:05 Rebekah Wolfe LAPAROSCOPY, DIAGNOSTIC 2019-05-13 19:08:00 José Manuel Granda ERCP WITH FLUORO 2019-05-13 19:08:00 Jason Bolanos hodist POC GLUCOSE 2019-05-13 13:10:00 Suri Dsouza CBC HEMOGRAM 2019-05-13 05:00:00 Damon Holbrook hildamat Scientologist ANTI XA, UNFRACTIONATED 2019-05-13 05:00:00 Suri Dsouza ANTI XA, UNFRACTIONATED 2019-05-12 12:10:00 Suri Dsouza HC COMPLETE BLD COUNT W/AUTO DIFF 2019-05-12 05:08:00 Suri Guerra ANTI XA, UNFRACTIONATED 2019-05-12 05:08:00 Suri Dsouza COMPREHENSIVE METABOLIC PANEL 2019-05-12 04:00:00 Valentine Dsouza ESTIMATED GFR 2019-05-12 04:00:00 Suri Dsouza Plan of Care Planned Activity Planned Date Details Comments Source Future Scheduled Test 2020-06-13 00:00:00 INFLUENZA VACCINE (#1) [code = INFLUENZA VACCINE (#1)] [facility] Future Scheduled Test 2020-05-13 00:00:00 INFLUENZA VACCINE [code = INFLUENZA VACCINE] Jose Miguel Avendano Future Scheduled Test 2004 00:00:00 Screening for sumeet gnant neoplasm of cervix (procedure) [code = 160877348] [facility] Future Scheduled Test 2004 00:00:00 Screening for sumeet gnant neoplasm of cervix (procedure) [code = 565812211] Jose Miguel Doan t Instructions COVID-19: 12/27/2019 [facility] Encounters Start Date/Time End Date/Time Encounter Type Admission Type Attendi [facility] Facility Care Department Encounter ID Source 2020-05-11 18:15:00 2020-05-11 20:37:00 Departed Emergency Room 1 KARIN HOLM [facility] [id number] [facility] I [facility] 2020-01-26 07:13:00 2020-01-26 07:13:00 Emergency E MHSE [facility]SE [id number] 2019-12-15 13:51:00 2020-01-11 23:59:00 Discharged Recurring [facility] [id number] [facility] 2020-01-11 17:54:00 2020-01-11 17:54:00 Emergency E MHSE MHSE [facility] 2020-01-09 19:51:00 2020-01-09 22:37:00 Departed Emergency Room 1 CARMEL ABDALLA [facility] [id number] [facility] 2019-12-06 12:44:00 2019-12-06 12:44:00 Registered Clinic 3 [facility] [id number] [facility] 2019-11-11 11:37:00 2019-11-13 08:53:00 Discharged Inpatient (obs) 3 [facility] [id number] [facility] I [facility] 2019-04-30 09:32:00 2019-04-30 09:32:00 Emergency E MHSE MHSE [facility] [facility] 2019-02-26 10:34:00 2019-02-26 10:34:00 Registered Surgical Day Care [facility] [id number] [facility] Results Test Description Test Time Test Comments Results Result Comments Source CHEST SINGLE (PORTABLE) 2020-05-11 19:15:00 [facility] [address] [address] Patient Name: JAMARCUS GARCES MR #: [id number] : 1985 Age/Sex: 35/F Req #: [id number] Adm Physician: Ordered by: KARIN HOLM MD Report #: [id number] Location: ER Room/Bed: Procedure: [id number] DX/CHEST SINGLE (PORTABLE) Exam Date: 05/11/20 Exam Time: 1830 REPORT STATUS: Signed EXAMINATION: CHEST SINGLE (PORTABLE) INDICATION: Cough. COMPARISON: Chest x-ray on 01/09/2020. FINDINGS: TUBES and LINES: None. LUNGS: Normal lung volumes. There is hazy opacification of the bilateral lung bases, left more to right. PLEURA: No pleural effusion or pneumothorax. HEART AND MEDIASTINUM: The cardiomediastinal silhouette is unremarkable. BONES AND SOFT TISSUES: No acute osseous lesion. Soft tissues are unremarkable. UPPER ABDOMEN: No free air under the diaphragm. IMPRESSION: Hazy opacification the bilateral lung bases which may represent atelectasis and/or pneumonia in the proper clinical setting. Signed by: Tavares Carson MD on 05/11/2020 7:28 PM Dictated By: TAVARES CARSON MD 27 Transcribed By: BENJAMIN on 05/11/201927 COPY TO: KARIN HOLM MD - XR UGI DBL CONTRAST 2020-01-24 12:24:00 FAX: Jim Chavez MD [phone] [place]: St: [facility] FAX: Jarred Chino DO [phone] Name: JAMARCUS GARCES [facility] : 1985 Age/S: 34/F [address] [place] [address] Unit #: [id number] Loc: [place] [address] Phys: Jim Mcdonough MD Acct: [id number] Dis Date: Status: REG CLI PHONE #: [phone] Exam Date: 01/24/2020 1158 FAX #: [phone] Reason: ANEMIA,IRON DEFICIENCY EXAMS: CPT CODE: [id number] XR UGI DBL CONTRAST [id number] Patient Name: JAMARCUS GARCES : 1985; Age: 34 years y/o Female MR: [id number] Study: - XR UGI DBL CONTRAST 01/24/2020 11:27 AM Ordering Physician: Jim Mcdonough MD Clinical Indication: ; ANEMIA,IRON DEFICIENCY Comparison: None TECHNIQUE AND FINDINGS: A routine upper gastrointestinal series was performed under fluoroscopic observation. Multiple spot images were obtained. Limitations:None. PHARYNX AND SWALLOWING Swallowing: Normally initiated. Laryngeal penetration/aspiration: None. Pharyngoesophageal junction: Normal in appearance without narrowing or diverticulum. ESOPHAGUS Morphology: Normal in course and caliber. Motility: Normal primary and secondary peristaltic waves. Mucosa: Normal without thickening, irregularity, or ulcer. Esophagogastric junction: Normal. Gastroesophageal reflux: Proximal third of the esophagus. STOMACH Morphology: Postoperative changes from partial gastrectomy and gastrojejunostomy Mucosa: Normal appearing rugal folds. IMPRESSION: 1. Moderate to severe gastroesophageal reflux to the proximal esophagus. 2. Expected postoperative changes from Chin-en-Y gastric bypass surgery. PAGE 1 Signed Report (CONTINUED) FAX: Jim Chavez MD [phone] [place]: St: REG FAX: Jarred Chino DO [phone] Name: JAMARCUS GARCES [facility] [place] : 1985 Age/S: 34/F [address] [place] [address] Unit #: [id number] Loc: [place] [address] Phys: Jim Mcdonough MD Acct: [id number] Dis Date: Status: REG CLI PHONE #: [phone] Exam Date: 01/24/2020 1158 FAX #: [phone] Reason: ANEMIA,IRON DEFICIENCY EXAMS: CPT CODE: [id number] XR UGI DBL CONTRAST [id number] <Continued> SL: [id number] at 1224 Reported and signed by: Ghassan Vega M.D. CC: Jim Mcdonough MD; Jarred Payne DO Technologist: RT Wilmer(R) Trnscrd Date/Time/By: 01/24/2020 (7984) : By: [email or web address] Orig Print D/T: S: 01/24/2020 (9392) PAGE 2 Signed Report BASIC METABOLIC PANEL 2020-01-18 09:14:00 Test Item SODIUM (test code = NA) 141 mEq/L 134-147 N POTASSIUM (test code = K) 5.0 mEq/L 3.4-5.0 N CHLORIDE (test code = CL) 107 mEq/L 100-108 N CARBON DIOXIDE (test code = CO2) 29 mEq/L 21-33 N ANION GAP (test code = GAP) 10 0-20 N GLUCOSE (test code = GLU) 102 mg/dL 70-110 N BLOOD UREA NITROGEN (test code = BUN) 11 mg/dL 7-18 N GLOMERULAR FILTRATION RATE (test code = GFR) 50.8 105-110 L Units of measure = ml/min/1.73 m2 CREATININE (test code = CREAT) 1.2 mg/dL 0.6-1.3 N CALCIUM (test code = CA) 9.7 mg/dL 8.0-10.5 N BASIC METABOLIC [id number] 09:08:00* Test Item Value Reference Range Interpretation Comments SODIUM (test code = NA) 141 mEq/L 134-147 N POTASSIUM (test code = K) 5.0 mEq/L 3.4-5.0 N CHLORIDE (test code = CL) 107 mEq/L 100-108 N CARBON DIOXIDE (test code = CO2) 29 mEq/L 21-33 N ANION GAP (test code = GAP) 10 0-20 N GLUCOSE (test code = GLU) 102 mg/dL 70-110 N BLOOD UREA NITROGEN (test code = BUN) 11 mg/dL 7-18 N GLOMERULAR FILTRATION RATE (test code = GFR) 105-110 CREATININE (test code = CREAT) mg/dL 0.6-1.3 CALCIUM (test code = CA) 9.7 mg/dL 8.0-10.5 N CBC W/AUTO [id number] 09:01:00* Test Item Value Reference Range Interpretation Comments WHITE BLOOD CELL (test code = WBC) 4.91 x10 3/uL 4.5-11.0 N RED BLOOD CELL (test code = RBC) 5.16 x10 6/uL 3.54-5.02 H HEMOGLOBIN (test code = HGB) 11.0 g/dL 11.0-15.0 N HEMATOCRIT (test code = HCT) 38.8 % 33.0-45.0 N MEAN CELL VOLUME (test code = MCV) 75.2 fL 81.0-99.0 L MEAN CELL HGB (test code = MCH) 21.3 pg 27.0-33.0 L MEAN CELL HGB CONCETRATION (test code = MCHC) 28.4 g/dL 33.0-37. 0 L RED CELL DISTRIBUTION WIDTH CV (test code = RDW) 15.3 % 11.5- 14.5 H RED CELL DISTRIBUTION WIDTH SD (test code = RDW-SD) 41.3 fL 37 .0-54.0 N PLATELET COUNT (test code = PLT) 390 x10 3/uL 150-400 N MEAN PLATELET VOLUME (test code = MPV) 9.4 fL 7.0-9.0 H NEUTROPHIL % (test code = NT%) 56.3 % 56.0-77.0 N IMMATURE GRANULOCYTE % (test code = IG%) 0.2 % 0.0-2.0 N LYMPHOCYTE % (test code = LY%) 35.2 % 14.0-32.0 H MONOCYTE % (test code = MO%) 7.7 % 4.8-9.0 N EOSINOPHIL % (test code = EO%) 0.0 % 0.3-3.7 L BASOPHIL % (test code = BA%) 0.6 % 0.0-2.0 N NUCLEATED RBC % (test code = NRBC%) 0.0 % 0-0 N NEUTROPHIL # (test code = NT#) 2.76 x10 3/uL 2.0-7.6 N IMMATURE GRANULOCYTE # (test code = IG#) 0.01 x10 3/uL 0.00-0.03 N LYMPHOCYTE # (test code = LY#) 1.73 x10 3/uL 1.0-3.8 N MONOCYTE # (test code = MO#) 0.38 x10 3/uL 0.1-0.8 N EOSINOPHIL # (test code = EO#) 0.00 x10 3/uL 0.0-0.2 N BASOPHIL # (test code = BA#) 0.03 x10 3/uL 0.0-0.2 N NUCLEATED RBC # (test code = NRBC#) 0.00 x10 3/uL 0.0-0.1 N MANUAL DIFF REQUIRED (test code = MDIFF) NO CHEST SINGLE (PORTABLE)2020-01-09 21:43:[address] [address] Patient Name: JAMARCUS GARCES MR #: [id number] : 1985 Age/Sex: 34/F Req #: [id number] Adm Physician: Ordered by: ELODIA MENENDEZ CASTING WHEEL OPERATOR Report #: [id number] Location: ER Room/Bed: Procedure: [id number] DX/CHEST SINGLE (PORTABLE) Exam Date: 01/09/20 Exam Time: 2250 REPORT STATUS: Signed EXAMINATION: CHEST SINGLE (PORTABLE) INDICATION: Palpit ations COMPARISON: Chest x-ray 11/09/2019 FINDINGS: TUBE S and LINES: None. LUNGS: Normal lung volumes. Lungs are clear. No cons olidations. PLEURA: No pleural effusion or pneumothorax. HEART AND ME DIASTINUM: The cardiomediastinal silhouette is unremarkable. BONES AND SOFT TISSUES: No acute osseous lesion. Soft tissues are unremarkable. UPPER ABDOMEN: No free air under the diaphragm. IMPRESSION: No ac traci thoracic radiographic abnormality. Signed by: Tony Lagunas DO on 01/09/2020 9:44 PM Dictated By: TONY LAGUNAS DO 8501 Transcribed By: BENJAMIN on 01/09/20 2 144 COPY TO: ELODIA MENENDEZ NP Creatine Kinase [id number] 21:06:00* Test Item Value Reference Range Interpretation Comments Creatine Kinase MB (test code = 98346-2) 0.40 0-5.0 [facility] [id number] 21:06:00* Test Item Value Reference Range Interpretation Comments Troponin I (test code = BDM4592) < 0.001 0-0.300 [facility] [id number] 21:06:00* Test Item Value Reference Range Interpretation Comments Creatine Kinase MB (test code = 06460-3) 0.40 0-5.0 [facility] [id number] 21:06:00* Test Item Value Reference Range Interpretation Comments Troponin I (test code = 56369-4) < 0.001 0-0.300 [facility] [id number] 21:04:00* Test Item Value Reference Range Interpretation Comments Sodium Level (test code = 2951-2) 139 136-145 [facility] [id number] 21:04:00* Test Item Value Reference Range Interpretation Comments Potassium Level (test code = 2823-3) 3.8 3.5-5.1 [facility]ide [id number] 21:04:00* Test Item Value Reference Range Interpretation Comments Chloride Level (test code = 2075-0) 106 98-107 [facility] District[facility] Dioxide [id number] 21:04:00* Test Item Value Reference Range Interpretation Comments Carbon Dioxide Level (test code = 2028-9) 24 -29 [facility] DistrictAnion [id number] 21:04:00* Test Item Value Reference Range Interpretation Comments Anion Gap (test code = 58786-7) 12.8 8-16 [facility] District[facility] Urea [id number] 21:04:00* Test Item Value Reference Range Interpretation Comments Blood Urea Nitrogen (test code = 3094-0) 10 7-26 [facility] DistrictCreatinine2020-03-29 21:04:00* Test Item Value Reference Range Interpretation Comments Creatinine (test code = 2160-0) 0.91 0.57-1.11 [facility] District[facility]/Creatinine [id number] 21:04:00* Test Item Value Reference Range Interpretation Comments BUN/Creatinine Ratio (test code = 3097-3) 11 - [facility] District[facility] Glomerular Filtration Rate 2020-01-09 21:04:00* Test Item Value Reference Range Interpretation Comments Estimat Glomerular Filtration Rate (test code = 124653378) > 60 >60 Ranges were taken from the National Kidney Disease Education Program and the [facility] Kid[facility] Foundation literature.Reference ranges:60 or greater: Rpvhdf56-51 ( for 3 consecutive months): Chronic kidney disease 15 or less: Kidney failureBallinger Memorial Hospital DistrictGlucose [id number] 21:04:00* Test Item Value Reference Range Interpretation Comments Glucose Level (test code = VBB3518) 89 74-118 [facility] DistrictCalcium [id number] 21:04:00* Test Item Value Reference Range Interpretation Comments Calcium Level (test code = 87408-4) 8.1 8.4-10.2 L [facility] DistrictTotal [id number] 21:04:00* Test Item Value Reference Range Interpretation Comments Total Bilirubin (test code = 1975-2) 0.2 0.2-1.2 [facility] DistrictAspartate Amino Transf (AST/SGOT) 2020-01-09 21:04:00* Test Item Value Reference Range Interpretation Comments Aspartate Amino Transf (AST/SGOT) (test code = Aspartate Amino Transf (AST/SGOT)) 19 5-34 [facility] DistrictAlanine Aminotransferase (ALT/SGPT) 2020-01-09 21:04:00* Test Item Value Reference Range Interpretation Comments Alanine Aminotransferase (ALT/SGPT) (test code = 1742-6) 15 0-55 [facility] DistrictTotal Dhinqnu1131-74-74 21:04:00* Test Item Value Reference Range Interpretation Comments Total Protein (test code = 2885-2) 6.5 6.5-8.1 [facility] DistrictAlbumin2020-03-29 21:04:00* Test Item Value Reference Range Interpretation Comments Albumin (test code = 1751-7) 3.6 3.5-5.0 [facility] DistrictGlobulin2020-03-29 21:04:00* Test Item Value Reference Range Interpretation Comments Globulin (test code = 35405-3) 2.9 2.3-3.5 [facility] DistrictAlbumin/Globulin Prbdg7541-01-98 21:04:00 * Test Item Value Reference Range Interpretation Comments Albumin/Globulin Ratio (test code = 1759-0) 1.2 0.8-2.0 [facility] DistrictAlkaline Cplcbsobsyg8925-76-35 21:04:00* Test Item Value Reference Range Interpretation Comments Alkaline Phosphatase (test code = 6768-6) 102 40-150 [facility] DistrictCreatine Saxmix1911-84-07 21:04:00* Test Item Value Reference Range Interpretation Comments Creatine Kinase (test code = 2157-6) 53 29-168 [facility]odium Cjvws1913-30-19 21:04:00* Test Item Value Reference Range Interpretation Comments Sodium Level (test code = 2951-2) 139 136-145 [facility] DistrictPotassium Vfhjf3617-35-15 21:04:00* Test Item Value Reference Range Interpretation Comments Potassium Level (test code = 2823-3) 3.8 3.5-5.1 [facility] DistrictChloride Vssyc7511-52-37 21:04:00* Test Item Value Reference Range Interpretation Comments Chloride Level (test code = 2075-0) 106 98-107 [facility] DistrictCarbon Dioxide Kzman7231-92-11 21:04:00* Test Item Value Reference Range Interpretation Comments Carbon Dioxide Level (test code = 2028-9) 24 - [facility] DistrictAnion Bxu2431-13-65 21:04:00* Test Item Value Reference Range Interpretation Comments Anion Gap (test code = 54832-2) 12.8 8-16 [facility] DistrictBlood Urea Mqhqzdab5727-34-42 21:04:00* Test Item Value Reference Range Interpretation Comments Blood Urea Nitrogen (test code = 3094-0) 10 7-26 [facility] DistrictCreatinine2020-03-29 21:04:00* Test Item Value Reference Range Interpretation Comments Creatinine (test code = 2160-0) 0.91 0.57-1.11 [facility] DistrictBUN/Creatinine Jjzuu0566-28-47 21:04:00* Test Item Value Reference Range Interpretation Comments BUN/Creatinine Ratio (test code = 3097-3) 11 6- [facility] DistrictEstimat Glomerular Filtration Rate 2020-01-09 21:04:00* Test Item Value Reference Range Interpretation Comments Estimat Glomerular Filtration Rate (test code = 195012269) > 60 >60 Ranges were taken from the National Kidney Disease Education Program and the [facility] Foundation literature.Reference ranges:60 or greater: Gurwus26-55 ( for 3 consecutive months): Chronic kidney disease 15 or less: Kidney failureBallinger [facility] Hospital DistrictGlucose Zbzkg3902-87-77 21:04:00* Test Item Value Reference Range Interpretation Comments Glucose Level (test code = SDZ2081) 89 74-118 [facility] DistrictCalcium Ifadf9978-42-83 21:04:00* Test Item Value Reference Range Interpretation Comments Calcium Level (test code = 75477-6) 8.1 8.4-10.2 L [facility] DistrictTotal Krzaxgyid7203-70-05 21:04:00* Test Item Value Reference Range Interpretation Comments Total Bilirubin (test code = 1975-2) 0.2 0.2-1.2 [facility] DistrictAspartate Amino Transf (AST/SGOT) 2020-01-09 21:04:00* Test Item Value Reference Range Interpretation Comments Aspartate Amino Transf (AST/SGOT) (test code = Aspartate Amino Transf (AST/SGOT)) 19 5-34 [facility] DistrictAlanine Aminotransferase (ALT/SGPT) 2020-01-09 21:04:00* Test Item Value Reference Range Interpretation Comments Alanine Aminotransferase (ALT/SGPT) (test code = 1742-6) 15 0-55 [facility] DistrictTotal Zjyywas4428-52-24 21:04:00* Test Item Value Reference Range Interpretation Comments Total Protein (test code = 2885-2) 6.5 6.5-8.1 [facility] DistrictAlbumin2020-03-29 21:04:00* Test Item Value Reference Range Interpretation Comments Albumin (test code = 1751-7) 3.6 3.5-5.0 [facility] DistrictGlobulin2020-03-29 21:04:00* Test Item Value Reference Range Interpretation Comments Globulin (test code = 38175-3) 2.9 2.3-3.5 [facility] DistrictAlbumin/Globulin Qfkco0673-54-18 21:04:00 * Test Item Value Reference Range Interpretation Comments Albumin/Globulin Ratio (test code = 1759-0) 1.2 0.8-2.0 [facility] DistrictAlkaline Dbhkmavlvmk9198-13-08 21:04:00* Test Item Value Reference Range Interpretation Comments Alkaline Phosphatase (test code = 6768-6) 102 40-150 [facility] DistrictCreatine Ejbzvh0732-22-83 21:04:00* Test Item Value Reference Range Interpretation Comments Creatine Kinase (test code = 2157-6) 53 29-168 [facility] DistrictProthrombin Yogi1608-06-93 21:03:00* Test Item Value Reference Range Interpretation Comments Prothrombin Time (test code = 5902-2) 13.1 11.9-14.5 [facility] DistrictProthromb Time International Ratio 2020-01-09 21:03:00* Test Item Value Reference Range Interpretation Comments Prothromb Time International Ratio (test code = 6301-6) 0.94 Oral Anticoagulant Therapy INR Values:1. Low Intensity Therapy 1.5 - 2.02 . Moderate Intensity Therapy 2.0 - 3.03. High Intensity Therapy(1) 2.5 - 3. 54. High Intensity Therapy(2) 3.0 - 4.05. Panic Value INR > 5.0 [facility] DistrictActivated Partial Thromboplast Time 2020-01-09 21:03:00* Test Item Value Reference Range Interpretation Comments Activated Partial Thromboplast Time (test code = 39052-3) 26.1 23.8-35.5 [facility] DistrictUrine BKU7952-91-59 21:03:00* Test Item Value Reference Range Interpretation Comments Urine WBC (test code = 5821-4) 0-5 0-5 [facility] DistrictUrine AHV4753-29-56 21:03:00* Test Item Value Reference Range Interpretation Comments Urine RBC (test code = 74326-9) 0-5 0-5 [facility] DistrictUrine Glowwvyn4818-03-38 21:03:00* Test Item Value Reference Range Interpretation Comments Urine Bacteria (test code = 91411-4) FEW NONE [facility] DistrictUrine Epithelial Eapsj0142-78-73 21:03:00 * Test Item Value Reference Range Interpretation Comments Urine Epithelial Cells (test code = 20789-1) MODERATE NONE [facility] DistrictProthrombin Qdql9796-47-99 21:03:00* Test Item Value Reference Range Interpretation Comments Prothrombin Time (test code = 5902-2) 13.1 11.9-14.5 [facility] DistrictProthromb Time International Ratio 2020-01-09 21:03:00* Test Item Value Reference Range Interpretation Comments Prothromb Time International Ratio (test code = 6301-6) 0.94 Oral Anticoagulant Therapy INR Values:1. Low Intensity Therapy 1.5 - 2.02 . Moderate Intensity Therapy 2.0 - 3.03. High Intensity Therapy(1) 2.5 - 3. 54. High Intensity Therapy(2) 3.0 - 4.05. Panic Value INR > 5.0 [facility] DistrictActivated Partial Thromboplast Time 2020-01-09 21:03:00* Test Item Value Reference Range Interpretation Comments Activated Partial Thromboplast Time (test code = 08304-0) 26.1 23.8-35.5 [facility] DistrictUrine PPZ5575-86-78 21:03:00* Test Item Value Reference Range Interpretation Comments Urine WBC (test code = 5821-4) 0-5 0-5 [facility] DistrictUrine NTQ4953-06-77 21:03:00* Test Item Value Reference Range Interpretation Comments Urine RBC (test code = 42566-1) 0-5 0-5 [facility] DistrictUrine Wsewurvu6618-64-17 21:03:00* Test Item Value Reference Range Interpretation Comments Urine Bacteria (test code = 79306-3) FEW NONE [facility] DistrictUrine Epithelial Kvgec0671-91-88 21:03:00 * Test Item Value Reference Range Interpretation Comments Urine Epithelial Cells (test code = 99823-2) MODERATE NONE [facility] DistrictUrine Qnkpx7372-77-85 20:54:00* Test Item Value Reference Range Interpretation Comments Urine Color (test code = 5778-6) YELLOW YELLOW [facility] DistrictU[facility] Yyoikow5748-31-76 20:54:00* Test Item Value Reference Range Interpretation Comments Urine Clarity (test code = 73634-1) SL CLOUDY CLEAR [facility] DistrictUrine Specific Gjjhzbu5552-62-43 20:54:00 * Test Item Value Reference Range Interpretation Comments Urine Specific Hatch (test code = 5811-5) 1.025 1.010-1.02 5 [facility] DistrictUrine nC4137-49-54 20:54:00* Test Item Value Reference Range Interpretation Comments Urine pH (test code = 61312-0) 6.5 5-7 [facility] DistrictUrine Leukocyte Ulqpdmpi1342-71-47 20:54:00* Test Item Value Reference Range Interpretation Comments Urine Leukocyte Esterase (test code = 5799-2) NEGATIVE NEGATIVE [facility] DistrictU[facility] Kbihala9327-65-99 20:54:00* Test Item Value Reference Range Interpretation Comments Urine Nitrite (test code = 11278-8) NEGATIVE NEGATIVE [facility] DistrictU[facility] Tkpfhbi9631-68-07 20:54:00* Test Item Value Reference Range Interpretation Comments Urine Protein (test code = 5804-0) NEGATIVE NEGATIVE [facility] DistrictUrine Glucose (UA)2020-01-09 20:54:00* Test Item Value Reference Range Interpretation Comments Urine Glucose (UA) (test code = 2349-9) NEGATIVE NEGATIVE [facility] DistrictU[facility] Djgymla3868-80-36 20:54:00* Test Item Value Reference Range Interpretation Comments Urine Ketones (test code = 65699-7) NEGATIVE NEGATIVE [facility] DistrictU[facility] Esynnywhoune4890-91-54 20:54:00* Test Item Value Reference Range Interpretation Comments Urine Urobilinogen (test code = 64734-3) 0.2 0.2-1 [facility] DistrictU[facility] Bajmlvglx7894-91-49 20:54:00* Test Item Value Reference Range Interpretation Comments Urine Bilirubin (test code = 1978-6) NEGATIVE NEGATIVE [facility] DistrictU[facility] Drmbp6901-09-81 20:54:00* Test Item Value Reference Range Interpretation Comments Urine Blood (test code = 68910-6) NEGATIVE NEGATIVE [facility] DistrictU[facility] Ahuov1580-38-12 20:54:00* Test Item Value Reference Range Interpretation Comments Urine Color (test code = 5778-6) YELLOW YELLOW [facility] DistrictU[facility] Zwamjko3399-25-27 20:54:00* Test Item Value Reference Range Interpretation Comments Urine Clarity (test code = 81963-5) SL CLOUDY CLEAR [facility] DistrictU[facility] Specific Xtwbxlf1938-17-35 20:54:00 * Test Item Value Reference Range Interpretation Comments Urine Specific Hatch (test code = 5811-5) 1.025 1.010-1.02 5 [facility] DistrictU[facility] yZ9013-28-46 20:54:00* Test Item Value Reference Range Interpretation Comments Urine pH (test code = 13039-2) 6.5 5-7 [facility] DistrictU[facility] Leukocyte Hvpzytvf6677-01-56 20:54:00* Test Item Value Reference Range Interpretation Comments Urine Leukocyte Esterase (test code = 5799-2) NEGATIVE NEGATIVE [facility] DistrictU[facility] Yhsljaa0006-75-96 20:54:00* Test Item Value Reference Range Interpretation Comments Urine Nitrite (test code = 65933-9) NEGATIVE NEGATIVE [facility] DistrictU[facility] Urtivup1266-08-64 20:54:00* Test Item Value Reference Range Interpretation Comments Urine Protein (test code = 5804-0) NEGATIVE NEGATIVE [facility] DistrictU[facility] Glucose (UA)2020-01-09 20:54:00* Test Item Value Reference Range Interpretation Comments Urine Glucose (UA) (test code = 2349-9) NEGATIVE NEGATIVE [facility] DistrictU[facility] Auvvmks2352-84-66 20:54:00* Test Item Value Reference Range Interpretation Comments Urine Ketones (test code = 81713-6) NEGATIVE NEGATIVE [facility] DistrictU[facility] Ekgqpxiuxzxc2977-11-42 20:54:00* Test Item Value Reference Range Interpretation Comments Urine Urobilinogen (test code = 10447-1) 0.2 0.2-1 [facility] DistrictU[facility] Lxyhgxrmy2733-79-46 20:54:00* Test Item Value Reference Range Interpretation Comments Urine Bilirubin (test code = 1978-6) NEGATIVE NEGATIVE [facility] DistrictU[facility] Zqyse1839-76-93 20:54:00* Test Item Value Reference Range Interpretation Comments Urine Blood (test code = 86646-9) NEGATIVE NEGATIVE [facility] DistrictWhite Blood Nnkpa2891-58-73 20:47:00* Test Item Value Reference Range Interpretation Comments White Blood Count (test code = 6690-2) 6.27 4.8-10.8 [facility] DistrictRed Blood Nhgvv5222-86-56 20:47:00* Test Item Value Reference Range Interpretation Comments Red Blood Count (test code = 789-8) 4.44 3.6-5.1 [facility] DistrictHemoglobin2020-03-29 20:47:00* Test Item Value Reference Range Interpretation Comments Hemoglobin (test code = 50939-3) 9.7 12.0-16.0 L [facility] DistrictHematocrit2020-03-29 20:47:00* Test Item Value Reference Range Interpretation Comments Hematocrit (test code = 4544-3) 32.3 34.2-44.1 L [facility] DistrictMean Corpuscular Jkbzrm5956-48-25 20:47:00* Test Item Value Reference Range Interpretation Comments Mean Corpuscular Volume (test code = 787-2) 72.7 81-99 L [facility] DistrictMean Corpuscular Orkanpwvhg8513-91-24 20:47:00* Test Item Value Reference Range Interpretation Comments Mean Corpuscular Hemoglobin (test code = 785-6) 21.8 28-32 L [facility] DistrictMean Corpuscular Hemoglobin Concent 2020-01-09 20:47:00* Test Item Value Reference Range Interpretation Comments Mean Corpuscular Hemoglobin Concent (test code = 786-4) 30.0 31-35 L [facility] DistrictRed Cell Distribution Exdvx2520-80-23 20:47:00* Test Item Value Reference Range Interpretation Comments Red Cell Distribution Width (test code = 50319-1) 14.9 11.7 -14.4 H [facility] DistrictPlatelet Ubxrs8357-36-33 20:47:00* Test Item Value Reference Range Interpretation Comments Platelet Count (test code = 777-3) 377 140-360 H [facility] DistrictNeutrophils (%) (Auto)2020-01-09 20:47:00 * Test Item Value Reference Range Interpretation Comments Neutrophils (%) (Auto) (test code = 09334-1) 51.1 38.7-80.0 [facility] DistrictLymphocytes (%) (Auto)2020-01-09 20:47:00 * Test Item Value Reference Range Interpretation Comments Lymphocytes (%) (Auto) (test code = 736-9) 38.8 18.0-39.1 [facility] DistrictMonocytes (%) (Auto)2020-01-09 20:47:00* Test Item Value Reference Range Interpretation Comments Monocytes (%) (Auto) (test code = 5905-5) 9.3 4.4-11.3 [facility] DistrictEosinophils (%) (Auto)2020-01-09 20:47:00 * Test Item Value Reference Range Interpretation Comments Eosinophils (%) (Auto) (test code = 713-8) 0.0 0.0-6.0 [facility] DistrictBasophils (%) (Auto)2020-01-09 20:47:00* Test Item Value Reference Range Interpretation Comments Basophils (%) (Auto) (test code = 706-2) 0.5 0.0-1.0 [facility] DistrictIM GRANULOCYTES %2020-01-09 20:47:00* Test Item Value Reference Range Interpretation Comments IM GRANULOCYTES % (test code = IM GRANULOCYTES %) 0.3 0.0- 1.0 [facility] DistrictNeutrophils # (Auto)2020-01-09 20:47:00* Test Item Value Reference Range Interpretation Comments Neutrophils # (Auto) (test code = 751-8) 3.2 2.1-6.9 [facility] DistrictLymphocytes # (Auto)2020-01-09 20:47:00* Test Item Value Reference Range Interpretation Comments Lymphocytes # (Auto) (test code = 61107-7) 2.4 1.0-3.2 [facility] DistrictMonocytes # (Auto)2020-01-09 20:47:00* Test Item Value Reference Range Interpretation Comments Monocytes # (Auto) (test code = 742-7) 0.6 0.2-0.8 [facility] DistrictEosinophils # (Auto)2020-01-09 20:47:00* Test Item Value Reference Range Interpretation Comments Eosinophils # (Auto) (test code = 711-2) 0.0 0.0-0.4 [facility] DistrictBasophils # (Auto)2020-01-09 20:47:00* Test Item Value Reference Range Interpretation Comments Basophils # (Auto) (test code = 704-7) 0.0 0.0-0.1 [facility] DistrictAbsolute Immature Granulocyte (auto 2020-01-09 20:47:00* Test Item Value Reference Range Interpretation Comments Absolute Immature Granulocyte (auto (izzy t code = Absolute Immature Granulocyte (auto) 0.02 0-0.1 [facility] DistrictWhite Blood Ynvct1889-30-23 20:47:00* Test Item Value Reference Range Interpretation Comments White Blood Count (test code = 6690-2) 6.27 4.8-10.8 [facility] DistrictRed Blood Riumb1800-01-16 20:47:00* Test Item Value Reference Range Interpretation Comments Red Blood Count (test code = 789-8) 4.44 3.6-5.1 [facility] DistrictHemoglobin2020-03-29 20:47:00* Test Item Value Reference Range Interpretation Comments Hemoglobin (test code = 08637-7) 9.7 12.0-16.0 L [facility] DistrictHematocrit2020-03-29 20:47:00* Test Item Value Reference Range Interpretation Comments Hematocrit (test code = 4544-3) 32.3 34.2-44.1 L [facility] DistrictMean Corpuscular Bvxqum7916-37-01 20:47:00* Test Item Value Reference Range Interpretation Comments Mean Corpuscular Volume (test code = 787-2) 72.7 81-99 L [facility] DistrictMean Corpuscular Pstynxmuim2360-45-30 20:47:00* Test Item Value Reference Range Interpretation Comments Mean Corpuscular Hemoglobin (test code = 785-6) 21.8 28-32 L [facility] DistrictMean Corpuscular Hemoglobin Concent 2020-01-09 20:47:00* Test Item Value Reference Range Interpretation Comments Mean Corpuscular Hemoglobin Concent (test code = 786-4) 30.0 31-35 L [facility] DistrictRed Cell Distribution Gfjnd2443-74-29 20:47:00* Test Item Value Reference Range Interpretation Comments Red Cell Distribution Width (test code = 17712-2) 14.9 11.7 -14.4 H [facility] DistrictPlatelet Erwwi1967-92-36 20:47:00* Test Item Value Reference Range Interpretation Comments Platelet Count (test code = 777-3) 377 140-360 H [facility] DistrictNeutrophils (%) (Auto)2020-01-09 20:47:00 * Test Item Value Reference Range Interpretation Comments Neutrophils (%) (Auto) (test code = 27789-0) 51.1 38.7-80.0 [facility] DistrictLymphocytes (%) (Auto)2020-01-09 20:47:00 * Test Item Value Reference Range Interpretation Comments Lymphocytes (%) (Auto) (test code = 736-9) 38.8 18.0-39.1 [facility] DistrictMonocytes (%) (Auto)2020-01-09 20:47:00* Test Item Value Reference Range Interpretation Comments Monocytes (%) (Auto) (test code = 5905-5) 9.3 4.4-11.3 [facility] DistrictEosinophils (%) (Auto)2020-01-09 20:47:00 * Test Item Value Reference Range Interpretation Comments Eosinophils (%) (Auto) (test code = 713-8) 0.0 0.0-6.0 [facility] DistrictBasophils (%) (Auto)2020-01-09 20:47:00* Test Item Value Reference Range Interpretation Comments Basophils (%) (Auto) (test code = 706-2) 0.5 0.0-1.0 [facility] DistrictIM GRANULOCYTES %2020-01-09 20:47:00* Test Item Value Reference Range Interpretation Comments IM GRANULOCYTES % (test code = IM GRANULOCYTES %) 0.3 0.0- 1.0 [facility] DistrictNeutrophils # (Auto)2020-01-09 20:47:00* Test Item Value Reference Range Interpretation Comments Neutrophils # (Auto) (test code = 751-8) 3.2 2.1-6.9 [facility] DistrictLymphocytes # (Auto)2020-01-09 20:47:00* Test Item Value Reference Range Interpretation Comments Lymphocytes # (Auto) (test code = 80136-0) 2.4 1.0-3.2 [facility] DistrictMonocytes # (Auto)2020-01-09 20:47:00* Test Item Value Reference Range Interpretation Comments Monocytes # (Auto) (test code = 742-7) 0.6 0.2-0.8 [facility] DistrictEosinophils # (Auto)2020-01-09 20:47:00* Test Item Value Reference Range Interpretation Comments Eosinophils # (Auto) (test code = 711-2) 0.0 0.0-0.4 [facility] DistrictBasophils # (Auto)2020-01-09 20:47:00* Test Item Value Reference Range Interpretation Comments Basophils # (Auto) (test code = 704-7) 0.0 0.0-0.1 [facility] DistrictAbsolute Immature Granulocyte (auto 2020-01-09 20:47:00* Test Item Value Reference Range Interpretation Comments Absolute Immature Granulocyte (auto (izzy t code = Absolute Immature Granulocyte (auto) 0.02 0-0.1 [facility] DistrictBlood leukocytes automated count (number/volume)2020-01-09 20:21:00* Test Item Value Reference Range Interpretation Comments White Blood Count (test code = 6690-2) 6.27 4.8-10.8 [facility]Bl[facility] automated count (number/volume)2020-01-09 20:21:00* Test Item Value Reference Range Interpretation Comments Red Blood Count (test code = 789-8) 4.44 3.6-5.1 [facility] DistrictBlood hemoglobin measurement (moles/volume)2020-01-09 20:21:00* Test Item Value Reference Range Interpretation Comments Hemoglobin (test code = 75539-5) 9.7 12.0-16.0 [facility] DistrictAutomated blood hematocrit (volume fraction)2020-01-09 20:21:00* Test Item Value Reference Range Interpretation Comments Hematocrit (test code = 4544-3) 32.3 34.2-44.1 [facility] DistrictAutomated erythrocyte mean corpuscular pludec4176-58-17 20:21:00* Test Item Value Reference Range Interpretation Comments Mean Corpuscular Volume (test code = 787-2) 72.7 81-99 [facility] DistrictAutomated erythrocyte mean corpuscular hemoglobin (mass per erythrocyte)2020-01-09 20:21:00* Test Item Value Reference Range Interpretation Comments Mean Corpuscular Hemoglobin (test code = 785-6) 21.8 28-32 [facility] DistrictAutomated erythrocyte mean corpuscular hemoglobin concentration measurement (mass/volume)2020-01-09 20:21:00* Test Item Value Reference Range Interpretation Comments Mean Corpuscular Hemoglobin Concent (test code = 786-4) 30.0 31-35 [facility] DistrictRDW JmiNc-Xzm8069-84-29 20:21:00* Test Item Value Reference Range Interpretation Comments Red Cell Distribution Width (test code = 92561-0) 14.9 11.7 -14.4 [facility] DistrictAutomated blood platelet count (count/volume)2020-01-09 20:21:00* Test Item Value Reference Range Interpretation Comments Platelet Count (test code = 777-3) 377 140-360 [facility] blood segmented neutrophil count as percentage of total cfdoywuctf4322-50-49 20:21:00* Test Item Value Reference Range Interpretation Comments Neutrophils (%) (Auto) (test code = 15458-1) 51.1 38.7-80.0 [facility] DistrictAutomated blood lymphocyte count as percentage ot total cvpksetzxj7771-91-12 20:21:00* Test Item Value Reference Range Interpretation Comments Lymphocytes (%) (Auto) (test code = 736-9) 38.8 18.0-39.1 [facility] DistrictAutblue [facility] hospitaled blood monocyte count as percentage of total eiknvrbqhb8221-80-58 20:21:00* Test Item Value Reference Range Interpretation Comments Monocytes (%) (Auto) (test code = 5905-5) 9.3 4.4-11.3 [facility] DistrictAutomated blood eosinophil count as percentage of total lausopqpsh9803-53-56 20:21:00* Test Item Value Reference Range Interpretation Comments Eosinophils (%) (Auto) (test code = 713-8) 0.0 0.0-6.0 [facility] DistrictAutblue ridge regional hospitaled blood basophil count as percentage of total sdfdddpelb6764-14-96 20:21:00* Test Item Value Reference Range Interpretation Comments Basophils (%) (Auto) (test code = 706-2) 0.5 0.0-1.0 [facility] [facility] DistrictFluoroscopic procedure less than one hour ztksrpaq7616-88-91 20:21:00* Test Item Value Reference Range Interpretation Comments IM GRANULOCYTES % (test code = IM GRANULOCYTES %) 0.3 0.0- 1.0 [facility] DistrictAutblue ridge [facility] hospitaled blood neutrophil count 2020-01-09 20:21:00* Test Item Value Reference Range Interpretation Comments Neutrophils # (Auto) (test code = 751-8) 3.2 2.1-6.9 [facility] DistrictBlood lymphocytes count (number/volume) 2020-01-09 20:21:00* Test Item Value Reference Range Interpretation Comments Lymphocytes # (Auto) (test code = 02846-1) 2.4 1.0-3.2 [facility] monocytes automated count (number/volume)2020-01-09 20:21:00* Test Item Value Reference Range Interpretation Comments Monocytes # (Auto) (test code = 742-7) 0.6 0.2-0.8 [facility] DistrictAutomated blood eosinophil count 2020-01-09 20:21:00* Test Item Value Reference Range Interpretation Comments Eosinophils # (Auto) (test code = 711-2) 0.0 0.0-0.4 [facility] DistrictAutomated blood basophil count (count/volume)2020-01-09 20:21:00* Test Item Value Reference Range Interpretation Comments Basophils # (Auto) (test code = 704-7) 0.0 0.0-0.1 [facility] DistrictFluoroscopic procedure less than one hour nxcjhkqv2372-79-04 20:21:00* Test Item Value Reference Range Interpretation Comments Absolute Immature Granulocyte (auto (izzy t code = Absolute Immature Granulocyte (auto) 0.02 0-0.1 [facility] DistrictProthrombin time (PT) in platelet poor plasma by coagulation ybbsz5668-47-54 20:21:00* Test Item Value Reference Range Interpretation Comments Prothrombin Time (test code = 5902-2) 13.1 11.9-14.5 [facility] DistrictINR in Platelet poor plasma by Coagulation mnrbx1400-52-83 20:21:00* Test Item Value Reference Range Interpretation Comments Prothromb Time International Ratio (test code = 6301-6) 0.94 Oral Anticoagulant Therapy INR Values:1. Low Intensity Therapy 1.5 - 2.02 . Moderate Intensity Therapy 2.0 - 3.03. High Intensity Therapy(1) 2.5 - 3. 54. High Intensity Therapy(2) 3.0 - 4.05. Panic Value INR > 5.0 [facility] DistrictActivated partial thromboplastin time (aPTT) in platelet poor plasma by coagulation tbtob7122-54-56 20:21:00* Test Item Value Reference Range Interpretation Comments Activated Partial Thromboplast Time (test code = 69992-5) 26.1 23.8-35.5 [facility] DistrictUrine color tzahehfpqhfgo6161-21-54 20:21:00* Test Item Value Reference Range Interpretation Comments Urine Color (test code = 5778-6) YELLOW YELLOW [facility] DistrictUrine getkfze9558-54-36 20:21:00* Test Item Value Reference Range Interpretation Comments Urine Clarity (test code = 69606-0) SL CLOUDY CLEAR [facility] gravity of Urine by Test strip 2020-01-09 20:21:00* Test Item Value Reference Range Interpretation Comments Urine Specific Hatch (test code = 5811-5) 1.025 1.010-1.02 5 [facility] DistrictUrine pH measurement by automated test xbfkf3038-88-84 20:21:00* Test Item Value Reference Range Interpretation Comments Urine pH (test code = 10260-0) 6.5 5-7 [facility] DistrictUrine leukocyte esterase detection by ywdxubfn7444-59-52 20:21:00* Test Item Value Reference Range Interpretation Comments Urine Leukocyte Esterase (test code = 5799-2) NEGATIVE NEGATIVE [facility] DistrictUrine nitrite iavhcxdow4318-18-09 20:21:00* Test Item Value Reference Range Interpretation Comments Urine Nitrite (test code = 90082-8) NEGATIVE NEGATIVE [facility] DistrictUrine protein measurement by test strip (mass/volume)2020-01-09 20:21:00* Test Item Value Reference Range Interpretation Comments Urine Protein (test code = 5804-0) NEGATIVE NEGATIVE [facility] DistrictUrine glucose cdlwujveo7200-47-16 20:21:00* Test Item Value Reference Range Interpretation Comments Urine Glucose (UA) (test code = 2349-9) NEGATIVE NEGATIVE [facility] DistrictUrine ketones detection by automated test okwyt4250-92-00 20:21:00* Test Item Value Reference Range Interpretation Comments Urine Ketones (test code = 73985-9) NEGATIVE NEGATIVE [facility] DistrictUrine urobilinogen measurement by test strip (mass/volume)2020-01-09 20:21:00* Test Item Value Reference Range Interpretation Comments Urine Urobilinogen (test code = 84019-7) 0.2 0.2-1 [facility] DistrictUrine total bilirubin measurement (mass/volume)2020-01-09 20:21:00* Test Item Value Reference Range Interpretation Comments Urine Bilirubin (test code = 1978-6) NEGATIVE NEGATIVE [facility] DistrictUrine erythrocytes oorxdilju1736-63-26 20:21:00* Test Item Value Reference Range Interpretation Comments Urine Blood (test code = 26761-0) NEGATIVE NEGATIVE [facility] DistrictAutomated urine sediment leukocyte count by microscopy (number/high power field)2020-01-09 20:21:00* Test Item Value Reference Range Interpretation Comments Urine WBC (test code = 5821-4) 0-5 0-5 [facility] DistrictErythrocytes detection in urine sediment by light rvruqlyetx8908-40-44 20:21:00* Test Item Value Reference Range Interpretation Comments Urine RBC (test code = 87420-6) 0-5 0-5 [facility] DistrictBacteria detection in urine sediment by light luuqlyrdge7345-25-89 20:21:00* Test Item Value Reference Range Interpretation Comments Urine Bacteria (test code = 03239-4) FEW NONE [facility] DistrictEpithelial cells detection in urine sediment by light evbhtlpvmz3492-67-74 20:21:00* Test Item Value Reference Range Interpretation Comments Urine Epithelial Cells (test code = 87148-2) MODERATE NONE [facility]inteerum or plasma sodium measurement (moles/volume)2020-01-09 20:21:00* Test Item Value Reference Range Interpretation Comments Sodium Level (test code = 2951-2) 139 136-145 [facility] Pointeerum or plasma potassium measurement (moles/volume)2020-01-09 20:21:00* Test Item Value Reference Range Interpretation Comments Potassium Level (test code = 2823-3) 3.8 3.5-5.1 [facility]inteerum or plasma chloride measurement (moles/volume)2020-01-09 20:21:00* Test Item Value Reference Range Interpretation Comments Chloride Level (test code = 2075-0) 106 98-107 [facility] Pointeerum or plasma carbon dioxide, total measurement (moles/volume)2020-01-09 20:21:00* Test Item Value Reference Range Interpretation Comments Carbon Dioxide Level (test code = 2028-9) 24 - [facility]inteerum or plasma anion lsa5276-77-83 20:21:00* Test Item Value Reference Range Interpretation Comments Anion Gap (test code = 84538-3) 12.8 8-16 [facility]inteerum or plasma urea nitrogen measurement (mass/volume)2020-01-09 20:21:00* Test Item Value Reference Range Interpretation Comments Blood Urea Nitrogen (test code = 3094-0) 10 7-26 [facility]inteerum or plasma creatinine measurement (mass/volume)2020-01-09 20:21:00* Test Item Value Reference Range Interpretation Comments Creatinine (test code = 2160-0) 0.91 0.57-1.11 [facility]inteerum or plasma urea nitrogen/creatinine mass qdvno6330-37-61 20:21:00* Test Item Value Reference Range Interpretation Comments BUN/Creatinine Ratio (test code = 3097-3) 11 6-25 [facility] DistrictEstimated glomerular filtration rate (GFR) vyoysuzyoqgop4074-45-04 20:21:00* Test Item Value Reference Range Interpretation Comments Estimat Glomerular Filtration Rate (test code = 854694950) > 60 >60 Ranges were taken from the National Kidney Disease Education Program and the [facility] Kidney Foundation literature.Reference ranges:60 or greater: Qyvmub36-62 ( for 3 consecutive months): Chronic kidney disease 15 or less: Kidney failureBallinger Memorial Hospital DistrictGlucose bmkhsbrqejh9835-44-50 20:21:00* Test Item Value Reference Range Interpretation Comments Glucose Level (test code = ILV0882) 89 74-118 [facility]inteerum or plasma calcium measurement (mass/volume)2020-01-09 20:21:00* Test Item Value Reference Range Interpretation Comments Calcium Level (test code = 43579-9) 8.1 8.4-10.2 [facility]inteerum or plasma total bilirubin measurement (mass/volume)2020-01-09 20:21:00* Test Item Value Reference Range Interpretation Comments Total Bilirubin (test code = 1975-2) 0.2 0.2-1.2 [facility] DistrictFluoroscopic procedure less than one hour miufzdkb0141-56-83 20:21:00* Test Item Value Reference Range Interpretation Comments Aspartate Amino Transf (AST/SGOT) (test code = Aspartate Amino Transf (AST/SGOT)) 19 5-34 [facility]inteerum or plasma alanine aminotransferase measurement (enzymatic activity/volume)2020-01-09 20:21:00* Test Item Value Reference Range Interpretation Comments Alanine Aminotransferase (ALT/SGPT) (test code = 1742-6) 15 0-55 [facility]inteerum or plasma protein measurement (mass/volume)2020-01-09 20:21:00* Test Item Value Reference Range Interpretation Comments Total Protein (test code = 2885-2) 6.5 6.5-8.1 [facility]inteerum or plasma albumin measurement (mass/volume)2020-01-09 20:21:00* Test Item Value Reference Range Interpretation Comments Albumin (test code = 1751-7) 3.6 3.5-5.0 [facility] DistrictPlasma globulin measurement (mass/volume) 2020-01-09 20:21:00* Test Item Value Reference Range Interpretation Comments Globulin (test code = 59243-7) 2.9 2.3-3.5 [facility]inteerum or plasma albumin/globulin mass odvvo9018-37-64 20:21:00* Test Item Value Reference Range Interpretation Comments Albumin/Globulin Ratio (test code = 1759-0) 1.2 0.8-2.0 [facility]inteerum or plasma alkaline phosphatase measurement (enzymatic activity/volume)2020-01-09 20:21:00* Test Item Value Reference Range Interpretation Comments Alkaline Phosphatase (test code = 6768-6) 102 40-150 [facility] Pointeerum or plasma creatine kinase measurement (enzymatic activity/volume)2020-01-09 20:21:00* Test Item Value Reference Range Interpretation Comments Creatine Kinase (test code = 2157-6) 53 29-168 [facility] Pointeerum or plasma creatine kinase MB measurement (mass/volume)2020-01-09 20:21:00* Test Item Value Reference Range Interpretation Comments Creatine Kinase MB (test code = 40876-2) 0.40 0-5.0 [facility] DistrictTroponin I measurement by highly sensitive enzyme gqkvitsgebf2765-36-50 20:21:00* Test Item Value Reference Range Interpretation Comments Troponin I (test code = 77933-5) < 0.001 0-0.300 [facility] PointePINE CERVICAL AP LAT FLEX OTQ9529-96-25 14:47:00 [facility] [address] [place] [address] Patient Name: JAMARCUS GARCES MR #: [id number] : 1985 Age/Sex: 34/F Req #: [id number] Adm Physician: Ordered by: ELIJAH RUIZ MD Report #: [id number] Location: [facility] Room/Bed: Procedure: 46 DX/SPINE CERVICAL AP LAT FLEX EXT Exam Date: 12/06/19 Exam Time: 1410 REPORT STATUS: Signed Exam: Cervical spine AP lateral flexion extension History: Cervical spine surgery Comparison: None. Findings: No fracture or orestes lignment. Anterior cervical discectomy and fusion of C5-C7 with anterior plate screw construct and interbody cage. No loosening. No hypermobility on flexion- extension. No abnormal soft tissue calcification or soft tissue defect. Impression: No acute osseous abnormality Anterior cervical discectomy and fusion of C5-C7. No complication. Signed by: Dr. Laura Egan M.D. on 12/06/2019 2:48 PM Dictated By: LAURA EGAN MD Electronically Si gned By: LAURA EGAN MD on 12/06/191447 Transcribed By: BENJAMIN on 8 COPY TO: ELIJAH RUIZ MD Bedside Vanryvr1096-78-09 09:24:00* Test Item Value Reference Range Interpretation Comments Bedside Glucose (test code = 10154-9) 92 70-120 Meter ID: [id number] Glucose 2019-11-11 09:24:00* Test Item Value Reference Range Interpretation Comments Bedside Glucose (test code = 24220-8) 92 70-120 Meter ID: [id number] [facility] Glucose 2019-11-11 09:24:00* Test Item Value Reference Range Interpretation Comments Bedside Glucose (test code = 31625-4) 92 70-120 Meter ID: [id number] [facility] HospitalCap[facility] glucose measurement by glucometer (mass/volume)2019-11-11 08:09:00* Test Item Value Reference Range Interpretation Comments Bedside Glucose (test code = 73990-2) 92 70-120 Meter ID: [id number] Memorial Hospital DistrictBlood Urea Nitrogen 2019-11-09 12:50:00* Test Item Value Reference Range Interpretation Comments Blood Urea Nitrogen (test code = 3094-0) 12 05-07 [facility] DistrictBUN/Creatinine Azaux2141-07-41 12:50:00* Test Item Value Reference Range Interpretation Comments BUN/Creatinine Ratio (test code = 3097-3) 13 04-06 [facility] DistrictProthrombin Ylqm9188-58-84 12:41:00* Test Item Value Reference Range Interpretation Comments Prothrombin Time (test code = 5902-2) 12.7 11.9-14.5 [facility] DistrictProthromb Time International Ratio 2019-11-09 12:41:00* Test Item Value Reference Range Interpretation Comments Prothromb Time International Ratio (test code = 6301-6) 0.91 Oral Anticoagulant Therapy INR Values:1. Low Intensity Therapy 1.5 - 2.02 . Moderate Intensity Therapy 2.0 - 3.03. High Intensity Therapy(1) 2.5 - 3. 54. High Intensity Therapy(2) 3.0 - 4.05. Panic Value INR > 5.0 [facility] DistrictActivated Partial Thromboplast Time 2019-11-09 12:41:00* Test Item Value Reference Range Interpretation Comments Activated Partial Thromboplast Time (test code = 28095-5) 27.2 23.8-35.5 [facility] Pointeodium Sohoa1473-82-22 12:40:00* Test Item Value Reference Range Interpretation Comments Sodium Level (test code = 2951-2) 138 136-145 [facility] DistrictPotassium Hhxyb2786-04-16 12:40:00* Test Item Value Reference Range Interpretation Comments Potassium Level (test code = 2823-3) 4.2 3.5-5.1 [facility] DistrictChloride Wfwdq2089-88-38 12:40:00* Test Item Value Reference Range Interpretation Comments Chloride Level (test code = 2075-0) 106 98-107 [facility] DistrictCarbon Dioxide Qrlth6453-56-35 12:40:00* Test Item Value Reference Range Interpretation Comments Carbon Dioxide Level (test code = 2028-9) 23 22-29 [facility] DistrictAnion Syu7873-43-29 12:40:00* Test Item Value Reference Range Interpretation Comments Anion Gap (test code = 77968-5) 13.2 8-16 [facility] DistrictCreatinine2020-01-28 12:40:00* Test Item Value Reference Range Interpretation Comments Creatinine (test code = 2160-0) 0.90 0.57-1.11 [facility] DistrictEstimat Glomerular Filtration Rate 2019-11-09 12:40:00* Test Item Value Reference Range Interpretation Comments Estimat Glomerular Filtration Rate (test code = 991249609) > 60 >60 Ranges were taken from the National Kidney Disease Education Program and the [facility] Kid[facility] Foundation literature.Reference ranges:60 or greater: Ykcprt94-25 ( for 3 consecutive months): Chronic kidney disease 15 or less: Kidney failureBallinger Memorial Hospital DistrictGlucose Qgexa8414-25-23 12:40:00* Test Item Value Reference Range Interpretation Comments Glucose Level (test code = QVQ5085) 84 74-118 [facility] DistrictCalcium Ebnco0303-92-76 12:40:00* Test Item Value Reference Range Interpretation Comments Calcium Level (test code = 06727-3) 8.9 8.4-10.2 [facility] DistrictCHEST 2 QRGHA3919-06-89 12:36:00 [facility] [address] [place] [address] Patient Name: JAMARCUS GARCES MR #: [id number] : 1985 Age/Sex: 34/F Req #: [id number] Adm Physician: Ordered by: ELIJAH RUIZ MD Report #: [id number] Location: OR Room/Bed: Procedure: 0128-00 27 DX/CHEST 2 VIEWS Exam Date: Exam Time: REPORT STATUS: Signed EXAMINATION: CHEST 2 VIEWS INDICATION: Pre-operative COMPARISON: None FIN DINGS: LINES/TUBES:None LUNGS:The lungs are well-inflated. No focal co nsolidation or pulmonary edema. PLEURA:No pleural effusion or pneumothorax. MEDIASTINUM:The cardiomediastinal silhouette appears normal in size and sh ape. BONES/SOFT TISSUES:No acute osseous injury. ABDOMEN:No free air u nder the diaphragm. IMPRESSION: No focal pneumonia or pulmonary edema . Signed by: Kerri Lawton MD on 11/09/2019 12:36 PM Dictated By: LOKESH LAWTON MD 1236 Transcribed By: BENJAMIN on 11/09/19 1236 COPY TO: ELIJAH RUIZ MD White Blood Zhjxg1998-17-37 11:49:00* Test Item Value Reference Range Interpretation Comments White Blood Count (test code = 6690-2) 7.17 4.8-10.8 [facility] DistrictRed Blood Fchkl6868-94-62 11:49:00* Test Item Value Reference Range Interpretation Comments Red Blood Count (test code = 789-8) 4.76 3.6-5.1 [facility] DistrictHemoglobin2020-01-28 11:49:00* Test Item Value Reference Range Interpretation Comments Hemoglobin (test code = 03467-3) 10.6 12.0-16.0 L [facility] DistrictHematocrit2020-01-28 11:49:00* Test Item Value Reference Range Interpretation Comments Hematocrit (test code = 4544-3) 35.5 34.2-44.1 [facility] DistrictMean Corpuscular Pdgvnt6151-69-00 11:49:00* Test Item Value Reference Range Interpretation Comments Mean Corpuscular Volume (test code = 787-2) 74.6 81-99 L [facility] DistrictMean Corpuscular Stnybmvbqm8336-36-60 11:49:00* Test Item Value Reference Range Interpretation Comments Mean Corpuscular Hemoglobin (test code = 785-6) 22.3 28-32 L [facility] DistrictMean Corpuscular Hemoglobin Concent 2019-11-09 11:49:00* Test Item Value Reference Range Interpretation Comments Mean Corpuscular Hemoglobin Concent (test code = 786-4) 29.9 31-35 L [facility] DistrictRed Cell Distribution Fslzy7074-19-97 11:49:00* Test Item Value Reference Range Interpretation Comments Red Cell Distribution Width (test code = 38048-3) 14.8 11.7 -14.4 H [facility] DistrictPlatelet Ruuxy3058-12-31 11:49:00* Test Item Value Reference Range Interpretation Comments Platelet Count (test code = 777-3) 316 140-360 [facility] DistrictNeutrophils (%) (Auto)2019-11-09 11:49:00 * Test Item Value Reference Range Interpretation Comments Neutrophils (%) (Auto) (test code = 88652-5) 56.1 38.7-80.0 [facility] DistrictLymphocytes (%) (Auto)2019-11-09 11:49:00 * Test Item Value Reference Range Interpretation Comments Lymphocytes (%) (Auto) (test code = 736-9) 32.2 18.0-39.1 [facility] DistrictMonocytes (%) (Auto)2019-11-09 11:49:00* Test Item Value Reference Range Interpretation Comments Monocytes (%) (Auto) (test code = 5905-5) 8.2 4.4-11.3 [facility] DistrictEosinophils (%) (Auto)2019-11-09 11:49:00 * Test Item Value Reference Range Interpretation Comments Eosinophils (%) (Auto) (test code = 713-8) 2.5 0.0-6.0 [facility] DistrictBasophils (%) (Auto)2019-11-09 11:49:00* Test Item Value Reference Range Interpretation Comments Basophils (%) (Auto) (test code = 706-2) 0.3 0.0-1.0 [facility] DistrictIM GRANULOCYTES %2019-11-09 11:49:00* Test Item Value Reference Range Interpretation Comments IM GRANULOCYTES % (test code = IM GRANULOCYTES %) 0.7 0.0- 1.0 [facility] DistrictNeutrophils # (Auto)2019-11-09 11:49:00* Test Item Value Reference Range Interpretation Comments Neutrophils # (Auto) (test code = 751-8) 4.0 2.1-6.9 [facility] DistrictLymphocytes # (Auto)2019-11-09 11:49:00* Test Item Value Reference Range Interpretation Comments Lymphocytes # (Auto) (test code = 68192-5) 2.3 1.0-3.2 [facility] DistrictMonocytes # (Auto)2019-11-09 11:49:00* Test Item Value Reference Range Interpretation Comments Monocytes # (Auto) (test code = 742-7) 0.6 0.2-0.8 [facility] DistrictEosinophils # (Auto)2019-11-09 11:49:00* Test Item Value Reference Range Interpretation Comments Eosinophils # (Auto) (test code = 711-2) 0.2 0.0-0.4 [facility] DistrictBasophils # (Auto)2019-11-09 11:49:00* Test Item Value Reference Range Interpretation Comments Basophils # (Auto) (test code = 704-7) 0.0 0.0-0.1 [facility] DistrictAbsolute Immature Granulocyte (auto 2019-11-09 11:49:00* Test Item Value Reference Range Interpretation Comments Absolute Immature Granulocyte (auto (izzy t code = Absolute Immature Granulocyte (auto) 0.05 0-0.1 [facility] ABD PELVIS W/NPEO8464-29-23 17:59:00 Name: JAMARCUS GARCES [facility] : 1985 Age/S: 34 / F [address] [facility] Unit #: [id number] Loc: [place] [address] Phys: Joe Ramirez MD Acct: [id number] Di s Date: Status: REG ER PHONE #: Exam Date: 10/21/2019 1748 FAX #: Reason: LLQ abd pain, h/o clot to L ovary EXAMS: CPT CODE: [id number] CT ABD PELVIS W/CONT 15139 REASON FOR EXAM: LLQ abd pain, h/o clot to L ovary EXAM ORDER DATE: 10/21/2019 5:07 PM Ordering: Hui Ramirez MD Attending:Hui Ramirez MD Location:[facility] PROCEDURE: - CT ABD PELVIS W/CONT COMPARISON: FINDINGS: CT images of the abdomen and pelvis were ob tained with IV and without oral contrast at 5mm. Dose modulation, iterativ e reconstruction, and/or weight based adjustment of the MA/KV was ut ilized to reduce the radiation dose to as low as reasonably achievable. Intravenous contrast: 100cc of Omnipaque 370. The pao er, spleen, pancreas are grossly within normal limits. The patient is status post cholecystectomy The kidneys are within normal limits. The urinary bladder is unremarkable. The colon, small bowel, and stomach are within normal limits without evidence of obstruction. The appendix was not seen No evidence of free air or free fluid. The patient is status post hysterectomy IMPRESSION: No acute findings in the abdomen Electronically Signed by Yokasta Reich on 0 10/21/2019 at 1759 Reported and signed by: Sy Reich M.D. CC: Hui Ramirez MD; Jarred Payne DO Technologist:Rosemarie Walter CTDI: DLP: Trnscb Date/Time: 10/21/2019 (175) Gregoria Orig Print D/T: S: 10/21/2019 (2842) PAGE 1 Signed Report - DUP AB/PEL/SC [id number] 17:52:00 Name: JAMARCUS GARCES [facility] : 1985 Age/S: 34 / F [address] [facility] Unit #: [id number] Loc: [place] [address] Phys: Hui Ramirez MD Acct: [id number] Dis Date: Status: REG ER PHONE #: [phone] Exam Date: 10/21/2019 1745 FAX #: [phone] Reason: LLQ abd pain, h/o clot to L ovary EXAMS: CPT CODE: [id number] DUP AB/PEL/SC COMP 98894 REASON FOR EXAM: LLQ abd pain, h/o clot to L ovary EXAM ORDER DATE: 10/21/2019 5:06 PM Attending:Hui Ramirez MD Ordering:Hui Ramirez MD Location:[facility] PROCEDURE: - US TRANSVAGINAL NON OB, - DUP AB/PEL/SC COMP FINDINGS: The transvaginal ultrasound shows absence of the uterus consistent with status post hysterectomy. The right ovary measured 2.9 x 2 cm. The left ovary was not seen Unremarkable ovarian flow is seen. Duplex scans of the ovarian arteries were performed. Glynn scale images were supplemented with color- flow Doppler. Doppler flow velocity analysis (duplex Doppler) was performed. No fluid seen in the cul-de-sac. IMPRESSION: No evidence of adnexal mass or free fluid. Status post hysterectomy. Nonvisualization of the left ovary at 1752 Reported and signed by: Sy Reich M.D. CC: Hui Ramirez MD; Jarred Payne DO Technologist: Saige Dale RDMS Trnscb Date/Time: 10/21/2019 (1751) Gregoria Orig Print D/T: S: 10/21/2019 (1754) Probe: PAGE 1 Signed Report - US TRANSVAGINAL NON OB 2019-10-21 17:52:00 [facility]: [facility] : 1985 Age/S: 34 / F [address] [facility] Unit #: [id number] Loc: [place] [address] Phys: Hui Ramirez MD Acct: [id number] Dis Date: Status: REG ER PHONE #: [phone] Exam Date: 10/21/2019 1749 FAX #: [phone] Reason: LLQ abd pain, h/o clot to L ovary EXAMS: CPT [place]: [id number] [place] [address] REASON FOR EXAM: LLQ abd pain, h/o clot to L ovary EXAM ORDER DATE: 10/21/2019 5:06 PM Attending:Hui Ramirez MD Ordering:Hui Ramirez MD Location:[facility] PROCEDURE: - US TRANSVAGINAL NON OB, - DUP AB/PEL/SC COMP FINDINGS: The transvaginal ultrasound shows absence of the uterus consistent with status post hysterectomy. The right ovary measured 2.9 x 2 cm. The left ovary was not seen Unremarkable ovarian flow is seen. Duplex scans of the ovarian arteries were performed. Glynn scale images were supplemented with color- flow Doppler. Doppler flow velocity analysis (duplex Doppler) was performed. No fluid seen in the cul-de-sac. IMPRESSION: No evidence of adnexal mass or free fluid. Status post hysterectomy. Nonvisualization of the left ovary at 1752 Reported and signed by: Sy Reich M.D. CC: Hui Ramirez MD; Jarred Payne DO Technologist: Saige Dale RDMS Trnnyb Date/Time: 10/21/2019 (1751) MeiL Orig Print D/T: S: 10/21/2019 (1754) Probe: [id number] PAGE 1 Signed Report CBC W/AUTO [id number] 17:42:00* Test Item Value Reference Range Interpretation Comments WHITE BLOOD CELL (test code = WBC) 6.5 K/mm3 4.5-12.5 N RED BLOOD CELL (test code = RBC) 4.45 mill/mm3 3.7-5.2 N HEMOGLOBIN (test code = HGB) 9.8 gram/dL 11.5-15.5 L HEMATOCRIT (test code = HCT) 33.2 % 36.0-46.0 L MEAN CELL VOLUME (test code = MCV) 74.6 fL 80-98 L MEAN CELL HGB (test code = MCH) 22.0 picogram 27.0-33.0 L MEAN CELL HGB CONCETRATION (test code = MCHC) 29.5 gram/dL 33.0-36. 0 L RED CELL DISTRIBUTION WIDTH (test code = RDW) 14.5 % 11.6-16. 2 N RED CELL DISTRIBUTION WIDTH SD (test code = RDW-SD) 39.9 fL 37 .0-51.0 N PLATELET COUNT (test code = PLT) 358 K/mm3 150-450 N MEAN PLATELET VOLUME (test code = MPV) 9.0 fL 6.7-11.0 N NEUTROPHIL % (test code = NT%) 52.1 % 39.0-69.0 N LYMPHOCYTE % (test code = LY%) 40.6 % 25.0-55.0 N MONOCYTE % (test code = MO%) 6.6 % 0.0-10.0 N EOSINOPHIL % (test code = EO%) 0.0 % 0.0-5.0 N BASOPHIL % (test code = BA%) 0.2 % 0.0-1.0 N NEUTROPHIL # (test code = NT#) 3.40 K/mm3 1.8-7.7 N LYMPHOCYTE # (test code = LY#) 2.64 K/mm3 1.0-5.0 N MONOCYTE # (test code = MO#) 0.43 K/mm3 0-0.8 N EOSINOPHIL # (test code = EO#) 0.00 K/mm3 0.0-0.5 N BASOPHIL # (test code = BA#) 0.01 K/mm3 0.0-0.2 N MANUAL DIFF REQUIRED (test code = MDIFF) NO, ONLY SCAN NEEDED DIFFERENTIAL [id number] 17:42:00* Test Item Value Reference Range Interpretation Comments STAIN ACCEPTABILITY (test code = STN ACCEPTABLE) STAIN ACCEPTABLE HYPOCHROMIA (test code = HYPO) 1+ MORPHOLOGY COMMENT (test code = MOC) NORMAL PLATELET ESTIMATE (test code = PLTEST) ADEQUATE PLATELET MORPHOLOGY (test code = PLTMORPH) SIZE VARIABLE COMPREHENSIVE METABOLIC [id number] 17:39:00* Test Item Value Reference Range Interpretation Comments SODIUM (test code = NA) 139 mmol/L 136-145 N POTASSIUM (test code = K) 3.8 mmol/L 3.5-5.1 N CHLORIDE (test code = CL) 103 mmol/L 101-109 N CARBON DIOXIDE (test code = CO2) 27.8 mmol/L 21-32 N ANION GAP (test code = GAP) 12 mmol/L 10-20 N GLUCOSE (test code = GLU) 86 mg/dL 74-106 N BLOOD UREA NITROGEN (test code = BUN) 13 mg/dL 3-21 N CREATININE (test code = CREAT) 0.98 mg/dL 0.55-1.3 N BUN/CREATININE RATIO (test code = BUN/CREA) 13.3 10-20 N TOTAL PROTEIN (test code = PROT) 7.0 g/dL 6.5-8.4 N ALBUMIN (test code = ALB) 3.5 g/dL 3.4-4.8 N GLOBULIN (test code = GLOB) 3.5 G/DL 1-10 N ALBUMIN/GLOBULIN RATIO (test code = A/G) 1.00 RATIO 0.75-1.50 N CALCIUM (test code = CA) 8.4 mg/dL 8.4-10.2 N BILIRUBIN TOTAL (test code = BILT) 0.30 mg/dL 0.0-1.0 N SGOT/AST (test code = AST) 15 U/L 6-32 N SGPT/ALT (test code = ALT) 19 U/L 12-78 N N ote: Change in REFERENCE RANGE due to new reagent method. ALKALINE PHOSPHATASE TOTAL (test code = ALKP) 111 U/L 38-126 N [id number] 17:39:00* Test Item Value Reference Range Interpretation Comments LIPASE (test code = LIP) 313 U/L 128-270 H PROTHROMBIN [id number] 17:29:00* Test Item Value Reference Range Interpretation Comments PROTHROMBIN TIME PATIENT (test code = PTP) 9.8 seconds 9.0-13.0 N INTERNATIONAL NORMAL RATIO (test code = INR) 1.0 0.8-1.2 N The therapeutic range for oral anticoagulant therapy formost indications is an international normalized ratio (INR)of between 2.0 and 3.0. The recommended therapeutic INRrange for various clinical situations is listed below: Clinical Situation INR range Pulmonary e mbolism treatment (2.0-3.0)Venous thrombosis treatmentVenous thrombosis prophylaxis (high risk surgery)Prevention of systemic embolism from: Acute myocardial infarction Valvular heart disease Atrial fibrillation Mechanical prosthetic heart valves (2.5-3.5) IS PATIENT ON ANTICOAGULANTS? NCOMPREHENSIVE METABOLIC [id number] 17:29:00 * Test Item Value Reference Range Interpretation Comments SODIUM (test code = NA) 139 mmol/L 136-145 N POTASSIUM (test code = K) 3.8 mmol/L 3.5-5.1 N CHLORIDE (test code = CL) 103 mmol/L 101-109 N CARBON DIOXIDE (test code = CO2) mmol/L 21-32 ANION GAP (test code = GAP) mmol/L 10-20 GLUCOSE (test code = GLU) 86 mg/dL 74-106 N BLOOD UREA NITROGEN (test code = BUN) 13 mg/dL 3-21 N CREATININE (test code = CREAT) 0.98 mg/dL 0.55-1.3 N BUN/CREATININE RATIO (test code = BUN/CREA) 13.3 10-20 N TOTAL PROTEIN (test code = PROT) 7.0 g/dL 6.5-8.4 N ALBUMIN (test code = ALB) 3.5 g/dL 3.4-4.8 N GLOBULIN (test code = GLOB) 3.5 G/DL 1-10 N ALBUMIN/GLOBULIN RATIO (test code = A/G) 1.00 RATIO 0.75-1.50 N CALCIUM (test code = CA) 8.4 mg/dL 8.4-10.2 N BILIRUBIN TOTAL (test code = BILT) 0.30 mg/dL 0.0-1.0 N SGOT/AST (test code = AST) 15 U/L 6-32 N SGPT/ALT (test code = ALT) 19 U/L 12-78 N N ote: Change in REFERENCE RANGE due to new reagent method. ALKALINE PHOSPHATASE TOTAL (test code = ALKP) 111 U/L 38-126 N [id number] 17:29:00* Test Item Value Reference Range Interpretation Comments LIPASE (test code = LIP) 313 U/L 128-270 H URINALYSIS [id number] 17:24:00* Test Item Value Reference Range Interpretation Comments UA COLOR (test code = COLU) YELLOW YELLOW UA APPEARANCE (test code = APPU) CLEAR CLEAR UA GLUCOSE DIPSTICK (test code = DGLUU) 50 (Trace) mg/dL NEGATIVE A UA BILIRUBIN DIPSTICK (test code = BILU) NEGATIVE mg/dL NEGATIVE UA KETONE DIPSTICK (test code = KETU) neg mg/dL NEGATIVE UA SPECIFIC GRAVITY (test code = SGU) 1.020 1.001-1.035 UA BLOOD DIPSTICK (test code = PETE) neg Juan/uL NEGATIVE UA PH DIPSTICK (test code = SHORTY) 5.0 5.0-8.0 UA PROTEIN DIPSTICK (test code = PROU) neg mg/dL Neg-15 UA UROBILINIOGEN DIPSTICK (test code = URO) 1 mg/dL 0.0-0.2 A UA NITRITE DIPSTICK (test code = EROS) NEGATIVE NEGATIVE UA LEUKOCYTE ESTERASE DIPSTICK (test code = LEUU) neg uL NEGA TIVE UA WBC (test code = WBCU) NONE SEEN per HPF 0-5 UA RBC (test code = RBCU) 0-3 per HPF 0-5 UA EPITHELIAL CELLS (test code = EPIU) Few (2-5/hpf) per HPF Few UA BACTERIA (test code = BACU) TRACE per HPF NONE UA MUCUS (test code = MUCU) FEW per LPF NONE-FEW Urine Source? Clean CatchUR HCG [id number] 17:24:00* Test Item Value Reference Range Interpretation Comments UR HCG QUAL (test code = HCGQLU) NEGATIVE This HCGQL test is NOT applicable for MALE patients.Check with nurse about probable order error.If Tumor Marker Test needed, nurse should order test "HCGTU"(Test #550.71190) Urine Source? Clean CatchURINALYSIS [id number] 17:19:00* Test Item Value Reference Range Interpretation Comments UA COLOR (test code = COLU) YELLOW YELLOW UA APPEARANCE (test code = APPU) CLEAR CLEAR UA GLUCOSE DIPSTICK (test code = DGLUU) 50 (Trace) mg/dL NEGATIVE A UA BILIRUBIN DIPSTICK (test code = BILU) NEGATIVE mg/dL NEGATIVE UA KETONE DIPSTICK (test code = KETU) neg mg/dL NEGATIVE UA SPECIFIC GRAVITY (test code = SGU) 1.020 1.001-1.035 UA BLOOD DIPSTICK (test code = PETE) neg Juan/uL NEGATIVE UA PH DIPSTICK (test code = SHORTY) 5.0 5.0-8.0 UA PROTEIN DIPSTICK (test code = PROU) neg mg/dL Neg-15 UA UROBILINIOGEN DIPSTICK (test code = URO) 1 mg/dL 0.0-0.2 A UA NITRITE DIPSTICK (test code = EROS) NEGATIVE NEGATIVE UA LEUKOCYTE ESTERASE DIPSTICK (test code = LEUU) neg uL NEGA TIVE UA WBC (test code = WBCU) per HPF 0-5 UA RBC (test code = RBCU) per HPF 0-5 UA EPITHELIAL CELLS (test code = EPIU) per HPF Few UA BACTERIA (test code = BACU) per HPF NONE Urine Source? Clean CatchUR HCG [id number] 17:19:00* Test Item Value Reference Range Interpretation Comments UR HCG QUAL (test code = HCGQLU) NEGATIVE This HCGQL test is NOT applicable for MALE patients.Check with nurse about probable order error.If Tumor Marker Test needed, nurse should order test "HCGTU"(Test #[id number]) Urine Source? Clean CatchURINALYSIS [id number] 17:18:00* Test Item Value Reference Range Interpretation Comments UA COLOR (test code = COLU) YELLOW YELLOW UA APPEARANCE (test code = APPU) CLEAR CLEAR UA GLUCOSE DIPSTICK (test code = DGLUU) 50 (Trace) mg/dL NEGATIVE A UA BILIRUBIN DIPSTICK (test code = BILU) NEGATIVE mg/dL NEGATIVE UA KETONE DIPSTICK (test code = KETU) neg mg/dL NEGATIVE UA SPECIFIC GRAVITY (test code = SGU) 1.020 1.001-1.035 UA BLOOD DIPSTICK (test code = PETE) neg Juan/uL NEGATIVE UA PH DIPSTICK (test code = SHORTY) 5.0 5.0-8.0 UA PROTEIN DIPSTICK (test code = PROU) neg mg/dL Neg-15 UA UROBILINIOGEN DIPSTICK (test code = URO) 1 mg/dL 0.0-0.2 A UA NITRITE DIPSTICK (test code = EROS) NEGATIVE NEGATIVE UA LEUKOCYTE ESTERASE DIPSTICK (test code = LEUU) neg uL NEGA TIVE UA WBC (test code = WBCU) per HPF 0-5 UA RBC (test code = RBCU) per HPF 0-5 UA EPITHELIAL CELLS (test code = EPIU) per HPF Few UA BACTERIA (test code = BACU) per HPF NONE Urine Source? Clean CatchUR HCG [id number] 17:18:00* Test Item Value Reference Range Interpretation Comments UR HCG QUAL (test code = HCGQLU) Urine Source? Clean CatchCBC W/AUTO [id number] 17:16:00* Test Item Value Reference Range Interpretation Comments WHITE BLOOD CELL (test code = WBC) 6.5 K/mm3 4.5-12.5 N RED BLOOD CELL (test code = RBC) 4.45 mill/mm3 3.7-5.2 N HEMOGLOBIN (test code = HGB) 9.8 gram/dL 11.5-15.5 L HEMATOCRIT (test code = HCT) 33.2 % 36.0-46.0 L MEAN CELL VOLUME (test code = MCV) 74.6 fL 80-98 L MEAN CELL HGB (test code = MCH) 22.0 picogram 27.0-33.0 L MEAN CELL HGB CONCETRATION (test code = MCHC) 29.5 gram/dL 33.0-36. 0 L RED CELL DISTRIBUTION WIDTH (test code = RDW) 14.5 % 11.6-16. 2 N RED CELL DISTRIBUTION WIDTH SD (test code = RDW-SD) 39.9 fL 37 .0-51.0 N PLATELET COUNT (test code = PLT) 358 K/mm3 150-450 N MEAN PLATELET VOLUME (test code = MPV) 9.0 fL 6.7-11.0 N NEUTROPHIL % (test code = NT%) 52.1 % 39.0-69.0 N LYMPHOCYTE % (test code = LY%) 40.6 % 25.0-55.0 N MONOCYTE % (test code = MO%) 6.6 % 0.0-10.0 N EOSINOPHIL % (test code = EO%) 0.0 % 0.0-5.0 N BASOPHIL % (test code = BA%) 0.2 % 0.0-1.0 N NEUTROPHIL # (test code = NT#) 3.40 K/mm3 1.8-7.7 N LYMPHOCYTE # (test code = LY#) 2.64 K/mm3 1.0-5.0 N MONOCYTE # (test code = MO#) 0.43 K/mm3 0-0.8 N EOSINOPHIL # (test code = EO#) 0.00 K/mm3 0.0-0.5 N BASOPHIL # (test code = BA#) 0.01 K/mm3 0.0-0.2 N MANUAL DIFF REQUIRED (test code = MDIFF) NO, ONLY SCAN NEEDED DIFFERENTIAL [id number] 17:16:00* Test Item Value Reference Range Interpretation Comments STAIN ACCEPTABILITY (test code = STN ACCEPTABLE) CABOT RINGS (test code = CAB) MORPHOLOGY COMMENT (test code = MOC) PLATELET ESTIMATE (test code = PLTEST) PLATELET MORPHOLOGY (test code = PLTMORPH) CBC W/AUTO [id number] 17:16:00* Test Item Value Reference Range Interpretation Comments WHITE BLOOD CELL (test code = WBC) 6.5 K/mm3 4.5-12.5 N RED BLOOD CELL (test code = RBC) 4.45 mill/mm3 3.7-5.2 N HEMOGLOBIN (test code = HGB) 9.8 gram/dL 11.5-15.5 L HEMATOCRIT (test code = HCT) 33.2 % 36.0-46.0 L MEAN CELL VOLUME (test code = MCV) 74.6 fL 80-98 L MEAN CELL HGB (test code = MCH) 22.0 picogram 27.0-33.0 L MEAN CELL HGB CONCETRATION (test code = MCHC) 29.5 gram/dL 33.0-36. 0 L RED CELL DISTRIBUTION WIDTH (test code = RDW) 14.5 % 11.6-16. 2 N RED CELL DISTRIBUTION WIDTH SD (test code = RDW-SD) 39.9 fL 37 .0-51.0 N PLATELET COUNT (test code = PLT) 358 K/mm3 150-450 N MEAN PLATELET VOLUME (test code = MPV) 9.0 fL 6.7-11.0 N NEUTROPHIL % (test code = NT%) 52.1 % 39.0-69.0 N LYMPHOCYTE % (test code = LY%) 40.6 % 25.0-55.0 N MONOCYTE % (test code = MO%) 6.6 % 0.0-10.0 N EOSINOPHIL % (test code = EO%) 0.0 % 0.0-5.0 N BASOPHIL % (test code = BA%) 0.2 % 0.0-1.0 N NEUTROPHIL # (test code = NT#) 3.40 K/mm3 1.8-7.7 N LYMPHOCYTE # (test code = LY#) 2.64 K/mm3 1.0-5.0 N MONOCYTE # (test code = MO#) 0.43 K/mm3 0-0.8 N EOSINOPHIL # (test code = EO#) 0.00 K/mm3 0.0-0.5 N BASOPHIL # (test code = BA#) 0.01 K/mm3 0.0-0.2 N MANUAL DIFF REQUIRED (test code = MDIFF) NO, ONLY SCAN NEEDED DIFFERENTIAL [id number] 17:16:00* Test Item Value Reference Range Interpretation Comments STAIN ACCEPTABILITY (test code = STN ACCEPTABLE) CABOT RINGS (test code = CAB) MORPHOLOGY COMMENT (test code = MOC) PLATELET ESTIMATE (test code = PLTEST) PLATELET MORPHOLOGY (test code = PLTMORPH) CBC W/AUTO [id number] 17:16:00* Test Item Value Reference Range Interpretation Comments WHITE BLOOD CELL (test code = WBC) 6.5 K/mm3 4.5-12.5 N RED BLOOD CELL (test code = RBC) 4.45 mill/mm3 3.7-5.2 N HEMOGLOBIN (test code = HGB) 9.8 gram/dL 11.5-15.5 L HEMATOCRIT (test code = HCT) 33.2 % 36.0-46.0 L MEAN CELL VOLUME (test code = MCV) 74.6 fL 80-98 L MEAN CELL HGB (test code = MCH) 22.0 picogram 27.0-33.0 L MEAN CELL HGB CONCETRATION (test code = MCHC) 29.5 gram/dL 33.0-36. 0 L RED CELL DISTRIBUTION WIDTH (test code = RDW) 14.5 % 11.6-16. 2 N RED CELL DISTRIBUTION WIDTH SD (test code = RDW-SD) 39.9 fL 37 .0-51.0 N PLATELET COUNT (test code = PLT) 358 K/mm3 150-450 N MEAN PLATELET VOLUME (test code = MPV) 9.0 fL 6.7-11.0 N NEUTROPHIL % (test code = NT%) 52.1 % 39.0-69.0 N LYMPHOCYTE % (test code = LY%) 40.6 % 25.0-55.0 N MONOCYTE % (test code = MO%) 6.6 % 0.0-10.0 N EOSINOPHIL % (test code = EO%) 0.0 % 0.0-5.0 N BASOPHIL % (test code = BA%) 0.2 % 0.0-1.0 N NEUTROPHIL # (test code = NT#) 3.40 K/mm3 1.8-7.7 N LYMPHOCYTE # (test code = LY#) 2.64 K/mm3 1.0-5.0 N MONOCYTE # (test code = MO#) 0.43 K/mm3 0-0.8 N EOSINOPHIL # (test code = EO#) 0.00 K/mm3 0.0-0.5 N BASOPHIL # (test code = BA#) 0.01 K/mm3 0.0-0.2 N MANUAL DIFF REQUIRED (test code = MDIFF) NO, ONLY SCAN NEEDED DIFFERENTIAL [id number] 17:16:00* Test Item Value Reference Range Interpretation Comments STAIN ACCEPTABILITY (test code = STN ACCEPTABLE) MORPHOLOGY COMMENT (test code = MOC) PLATELET ESTIMATE (test code = PLTEST) PLATELET MORPHOLOGY (test code = PLTMORPH) CBC W/AUTO [id number] 17:16:00* Test Item Value Reference Range Interpretation Comments WHITE BLOOD CELL (test code = WBC) 6.5 K/mm3 4.5-12.5 N RED BLOOD CELL (test code = RBC) 4.45 mill/mm3 3.7-5.2 N HEMOGLOBIN (test code = HGB) 9.8 gram/dL 11.5-15.5 L HEMATOCRIT (test code = HCT) 33.2 % 36.0-46.0 L MEAN CELL VOLUME (test code = MCV) 74.6 fL 80-98 L MEAN CELL HGB (test code = MCH) 22.0 picogram 27.0-33.0 L MEAN CELL HGB CONCETRATION (test code = MCHC) 29.5 gram/dL 33.0-36. 0 L RED CELL DISTRIBUTION WIDTH (test code = RDW) 14.5 % 11.6-16. 2 N RED CELL DISTRIBUTION WIDTH SD (test code = RDW-SD) 39.9 fL 37 .0-51.0 N PLATELET COUNT (test code = PLT) 358 K/mm3 150-450 N MEAN PLATELET VOLUME (test code = MPV) 9.0 fL 6.7-11.0 N NEUTROPHIL % (test code = NT%) 52.1 % 39.0-69.0 N LYMPHOCYTE % (test code = LY%) 40.6 % 25.0-55.0 N MONOCYTE % (test code = MO%) 6.6 % 0.0-10.0 N EOSINOPHIL % (test code = EO%) 0.0 % 0.0-5.0 N BASOPHIL % (test code = BA%) 0.2 % 0.0-1.0 N NEUTROPHIL # (test code = NT#) 3.40 K/mm3 1.8-7.7 N LYMPHOCYTE # (test code = LY#) 2.64 K/mm3 1.0-5.0 N MONOCYTE # (test code = MO#) 0.43 K/mm3 0-0.8 N EOSINOPHIL # (test code = EO#) 0.00 K/mm3 0.0-0.5 N BASOPHIL # (test code = BA#) 0.01 K/mm3 0.0-0.2 N MANUAL DIFF REQUIRED (test code = MDIFF) NO, ONLY SCAN NEEDED DIFFERENTIAL [id number] 17:16:00* Test Item Value Reference Range Interpretation Comments STAIN ACCEPTABILITY (test code = STN ACCEPTABLE) CABOT RINGS (test code = CAB) MORPHOLOGY COMMENT (test code = MOC) PLATELET ESTIMATE (test code = PLTEST) PLATELET MORPHOLOGY (test code = PLTMORPH) POC [id number] 08:07:26* Test Item Value Reference Range Interpretation Comments POC glucose (test code = 74185-5) 87 mg/dL 65-99 [facility] Notified RNMeter ID: [id number]: Gualberto [facility] MethodistComprehensive metabolic [id number] 06:16:27* Test Item Value Reference Range Interpretation Comments Sodium (test code = 2951-2) 138 135- 148 mEq/L Potassium (test code = 2823-3) 3.8 3.5- 5.0 mEq/L Chloride (test code = 2075-0) 99 98- 112 mEq/L CO2 (test code = 8-9) 26 24- 31 mEq/L Anion gap (test code = 02107-6) 13@ANIO 7- 15 mEq/L BUN (test code = 3094-0) 10 mg/dL 6-20 Creatinine (test code = 2160-0) 0.91 mg/dL 0.5-0.9 H Glucose (test code = 2345-7) 84 mg/dL 65-99 Calcium (test code = 23715-9) 9.0 mg/dL 8.3-10.2 Protein (test code = 2885-2) 6.5 g/dL 6.3-8.3 [place] 4.6-7.0 g/dL1 week 4.4-7.6 g/dL7 months-1year 5.1-7.3 g/dL1-2 years 5.6-7.5 g/dL>3 years 6.0-8.0 g/bV42-384 6.3-8.3 g/dL Albumin (test code = 1751-7) 3.2 g/dL 3.5-5 L A/G ratio (test code = 1759-0) 1.0 0.7-3.8 Alkaline phosphatase (test code = 6768-6) 136 U/L 35-104 H AST (test code = 1920-8) 49 U/L 10-35 H ALT (test code = 1742-6) 64 U/L 5-50 H Total bilirubin (test code = 1974-2) <0.2 0-1.2 Lab Interpretation (test code = 42251-1) Abnormal [place] [facility]Estim[facility] [id number] 06:16:26* Test Item Value Reference Range Interpretation Comments Estimated GFR (test code = 5488) 81 mL/min/1.73 m2 Catergory Units InterpretationG1 >=90 Normal or highG2 60-89 Mildly auqodwkiwG5o 45-59 Mildly to moderately wpsrwildzV3p 30-44 Moderately to severely decreasedG4 15-29 Severely decreasedG5 <15 Kidney failureThe eGFR was calculated using the Chronic Kidney Disease Epidemiology Collaboration (CKD-EPI) equation. Interpretation is based on recommendations of the National Kidney Foundation-Kidney Disease Outcomes Quality Initiative (NKF-KDOQI) published in 2014. [facility] MethodistAnti Xa, [id number] 06:09:04* Test Item Value Reference Range Interpretation Comments Anti Xa, unfractionated (test code = 3274-8) 0.43 U/mL 0.3-0.7 Therapeutic Range: 0.30 - 0.70 U/mL [place] MethodistCBC with platelet and [id number] 05:50:01* Test Item Value Reference Range Interpretation Comments WBC (test code = 87127-6) 5.88 4.50- 11.00 k/uL RBC (test code = 26960-1) 4.32 m/uL 4.2-5.5 HGB (test code = 718-7) 10.8 g/dL 12-16 L HCT (test code = 4544-3) 34.2 % 37-47 L MCV (test code = 787-2) 79.2 fL 82-100 L MCH (test code = 785-6) 25.0 pg 27-34 L MCHC (test code = 786-4) 31.6 g/dL 31-37 RDW - SD (test code = 76174-8) 40.2 fL 37-55 MPV (test code = 43277-1) 10.1 fL 8.8-13.2 Platelet count (test code = 69587-5) 300 150- 400 k/uL Nucleated RBC (test code = 40490-3) 0.00 /100 WBC Neutrophils (test code = 11445-3) 49.7 % 39-69 Lymphocytes (test code = 20046-1) 41.5 % 25-45 Monocytes (test code = 35128-5) 7.8 % 0-10 Eosinophils (test code = 06756-2) 0.0 % 0-5 Basophils (test code = 61322-7) 0.5 % 0-1 Immature granulocytes (test code = 62744-7) 0.5 % 0-1 "Immature granulocytes" (promyelocytes, myelocytes, metamyelocytes) Lab Interpretation (test code = 29330-4) Abnormal [place] MethodistXR Abdomen 1 [id number] 20:31:22Hm Interface, Radiology Results - 05/15/2019 8:34 PM CDTXR ABDOMEN 1 VWCLINICAL INDICATION: Abd pain unspecifiedCOMPARISON: None.IMPRESSION:Mild gaseous distention of small bowel loops without transition. Mild gaseous distention of some large bowel loops with residual contrast from prior ERCP. The bowel gas pattern is nonspecific however can relate to a mild ileus. All of may be of benefit.Clips in the right upper quadrant abdomen related prior cholecystectomy.There is no evidence for free intraperitoneal air.[facility]new sunrise regional treatment centerHepatic function [id number] 13:19:51* Test Item Value Reference Range Interpretation Comments Albumin (test code = 1751-7) 3.4 g/dL 3.5-5 L Total bilirubin (test code = 1974-2) 0.3 mg/dL 0-1.2 Bilirubin direct (test code = 1967-7) <0.2 0-0.3 Alkaline phosphatase (test code = 6768-6) 155 U/L 35-104 H Protein (test code = 2885-2) 6.6 g/dL 6.3-8.3 [place] 4.6-7.0 g/dL1 week 4.4-7.6 g/dL7 months-1year 5.1-7.3 g/dL1-2 years 5.6-7.5 g/dL>3 years 6.0-8.0 g/wI12-820 6.3-8.3 g/dL ALT (test code = 1742-6) 81 U/L 5-50 H AST (test code = 1920-8) 93 U/L 10-35 H Lab Interpretation (test code = 80724-0) Abnormal [facility] [id number] 13:19:26* Test Item Value Reference Range Interpretation Comments Sodium (test code = 2951-2) 138 135- 148 mEq/L Potassium (test code = 2823-3) 4.0 3.5- 5.0 mEq/L Chloride (test code = 2075-0) 99 98- 112 mEq/L CO2 (test code = 2027-9) 26 24- 31 mEq/L Anion gap (test code = 46417-4) 13@ANIO 7- 15 mEq/L BUN (test code = 3094-0) 8 mg/dL 6-20 Creatinine (test code = 2160-0) 0.84 mg/dL 0.5-0.9 Glucose (test code = 2345-7) 84 mg/dL 65-99 Calcium (test code = 11739-8) 9.1 mg/dL 8.3-10.2 [facility] [place] < 1 [id number] 21:19:32Hm Interface, Radiology Results Incoming - 05/14/2019 9:22 PM CDTEXAMINATION: OR FL < 1 HOURC-arm fluoroscopy was requested in OR. LOCATION: [facility] OR 3PROCEDURE: C-ARM FOR ERCPSTART: 1940END: 2130FL TIME: 02 MIN 04 SECDOSE (mGy): 18.39TECH: TD IMPRESSION:Separate operative report will be issued by the physician performing the procedure.[id number] [id number] 05:42:02* Test Item Value Reference Range Interpretation Comments WBC (test code = 28639-0) 6.26 4.50- 11.00 k/uL RBC (test code = 66233-1) 4.72 m/uL 4.2-5.5 HGB (test code = 718-7) 11.3 g/dL 12-16 L HCT (test code = 4544-3) 38.7 % 37-47 MCV (test code = 787-2) 82.0 fL 82-100 MCH (test code = 785-6) 23.9 pg 27-34 L MCHC (test code = 786-4) 29.2 g/dL 31-37 L RDW - SD (test code = 28696-1) 41.0 fL 37-55 MPV (test code = 92469-7) 9.7 fL 8.8-13.2 Platelet count (test code = 56342-9) 336 150- 400 k/uL Nucleated RBC (test code = 41219-6) 0.00 /100 WBC Lab Interpretation (test code = 72805-5) Abnormal Jose Miguel [id number] 00:55:00* Test Item Value Reference Range Interpretation Comments GLUBED (test code = GLUBED) 77 MG/DL 70-110 N Performed by certified renovator machine operator at [facility] - CT ABD PELVIS [id number] 18:31:00 Name: JAMARCUS GARCES [facility] : 1985 Age/S: 33 / F [address] [place] [address] Blvd Unit #: [id number] Loc: [place] [address] Phys: Lynne Arauz NP Acct: [id number] Dis Date: Status: REG ER PHONE #: [phone] Exam Date: 03/18/2019 1810 FAX #: [phone] Reason: abd pain, elevated lipase EXAMS: CPT CODE: [id number] CT ABD PELVIS W/CONT 23685 EXAM: CT ABDOMEN AND PELVIS WITH CONTRAST DATE: 03/18/2019 5:23 PM : 1985; Age: 33 years y/o Female INDICATION: Diffuse abdominal pain abd pain, elevated lipase COMPARISON: March 10, 2019 TECHNIQUE: Volumetric CT of the abdomen and pelvis is acquired following the intravenous administration of contrast. Axial, coronal and sagittal images are provided. IV contrast: 100 mL Isovue Enteric contrast: 500 mL Omni DLP: 246 mGy- cm CT imaging performed at this location utilizes radiation dose optimization techniques which include one or more of the following: - Automated exposure control -Adjustment of the mA and/or kV according to patient size -Use of iterative reconstruction technique FINDINGS: Lower thorax: Clear. Liver: Normal. Gallbladder: Surgically absent. Adrenals: Normal. Kidneys and ureters: Normal. Spleen: Normal. Pancreas: Normal. Gastrointestinal tract: Stomach: Gastric bypass changes are seen. Small bowel: Postsurgical changes in the left hemiabdomen. No significant small bowel distention. Colon: Air and fluid distention of the colon is seen. Peritoneum, mesentery and retroperitoneum: No free fluid. PAGE 1 Signed Report (CONTINUED) Name: JAMARCUS GARCES [facility] : 1985 Age/S: 33 / F [address] [place] [address] Unit #: [id number] Loc: [place] [address] Phys: Lynne Arauz NP Acct: [id number] Dis Date: Status: REG ER PHONE #: [phone] Exam Date: 03/18/2019 1810 FAX #: [phone] Reason: abd pain, elevated lipase EXAMS: CPT CODE: [id number] CT ABD PELVIS W/CONT 78736 <Continued> Reproductive organs: Uterus is surgically absent. No adnexal abnormalities. Bladder: Normal. Soft tissues: Normal. Bones: No acute abnormality. Age-related degenerative findings. IMPRESSION: 1. Air and fluid distention of the colon is seen which could represent subtle colitis. 2. Prior gastric bypass. SL: [id number] at 1831 Reported and signed by: Abner Godinez D.O. CC: Violet Mata MD; Lynne Arauz NP; Jarred Payne DO Technologist:RT Ivan(R)(CT) CTDI: DLP: Trnscb Date/Time: 03/18/2019 (1830) [email or web address] Orig Print D/T: S: 03/18/2019 (1833) PAGE 2 Signed Report HEPATIC FUNCTION [id number] 17:21:00* Test Item Value Reference Range Interpretation Comments TOTAL PROTEIN (test code = PROT) 7.7 g/dL 6.4-8.2 N ALBUMIN (test code = ALB) 3.80 g/dL 3.4-5.0 N BILIRUBIN TOTAL (test code = BILT) 0.40 mg/dL 0.0-1.0 N BILIRUBIN DIRECT (test code = BILD) < 0.10 MG/DL 0.0-0.30 N BILIRUBIN INDIRECT (test code = BILIND) 0.30 MG/DL SGOT/AST (test code = AST) 11 IUnit/L 15-37 L SGPT/ALT (test code = ALT) 38 IUnit/L 15-65 N ALKALINE PHOSPHATASE TOTAL (test code = ALKP) 178 IUnit/L 20-125 H [id number] 17:21:00* Test Item Value Reference Range Interpretation Comments LIPASE (test code = LIP) 630 IUnit/L 73-393 H BASIC METABOLIC [id number] 16:02:00* Test Item Value Reference Range Interpretation Comments SODIUM (test code = NA) 138 mEq/L 134-147 N POTASSIUM (test code = K) 3.6 mEq/L 3.4-5.0 N CHLORIDE (test code = CL) 106 mEq/L 100-108 N CARBON DIOXIDE (test code = CO2) 27 mEq/L 21-33 N ANION GAP (test code = GAP) 9 0-20 N GLUCOSE (test code = GLU) 85 mg/dL 70-110 N BLOOD UREA NITROGEN (test code = BUN) 18 mg/dL 7-18 N GLOMERULAR FILTRATION RATE (test code = GFR) 63.1 105-110 L Units of measure = ml/min/1.73 m2 CREATININE (test code = CREAT) 1.0 mg/dL 0.6-1.3 N CALCIUM (test code = CA) 8.2 mg/dL 8.0-10.5 N THYROID STIMULATING [id number] 16:02:00* Test Item Value Reference Range Interpretation Comments THYROID STIMULATING HORMONE (test code = TSH) 2.49 0.42-5.4 7 N Results in edi- International Units/mL [id number] 16:02:00* Test Item Value Reference Range Interpretation Comments TROPONIN-I (test code = TROPI) < 0.015 ng/mL 0.000-0.045 N Negative: <= 0.045 Positive: >= 0.046 Correlation with serial results, other cardiac markers andclinical findings is necessary to determine the clinicalsignificance of this result. Results using different methodologies should not be comparedto one another as quantitative results may vary by method. - XR CHEST 2 [id number] 16:00:00 FAX: Lynne Arauz NP [phone] [place]: St: [facility] FAX: Doc Bates [phone] Name: JAMARCUS GARCES : 1985 Age/S: 33/F [address] [place] [address] Unit #: [id number] Loc: [place] [address] Phys: Lynne Arauz NP Acct: [id number] Dis Date: Status: REG ER PHONE #: [phone] Exam Date: 03/18/2019 1556 FAX #: [phone] Reason: Chest Pain EXAMS: CPT CODE: [id number] XR CHEST 2 V 00672 CHEST TWO VIEW HISTORY: Chest pain. Comparison made to 03/10/19. FINDINGS: The lungs are clear. The heart size and pulmonary vascularity are normal. Bony thorax shows no acute abnormality. IMPRESSION: No active process. SL:01 at 1600 Reported and signed by: Yuriy Quesada M.D. CC: Lynne Arauz NP; Doc Bashir M.D. Technologist: MONICA Denson) Jose Date/Time/By: 03/18/2019 (1600) : By: Kaelyn Orig Print D/T: S: 03/18/2019 (6855) PAGE 1 Signed Report BASIC METABOLIC [id number] 15:57:00* Test Item Value Reference Range Interpretation Comments SODIUM (test code = NA) 138 mEq/L 134-147 N POTASSIUM (test code = K) 3.6 mEq/L 3.4-5.0 N CHLORIDE (test code = CL) 106 mEq/L 100-108 N CARBON DIOXIDE (test code = CO2) 27 mEq/L 21-33 N ANION GAP (test code = GAP) 9 0-20 N GLUCOSE (test code = GLU) 85 mg/dL 70-110 N BLOOD UREA NITROGEN (test code = BUN) 18 mg/dL 7-18 N GLOMERULAR FILTRATION RATE (test code = GFR) 63.1 105-110 L Units of measure = ml/min/1.73 m2 CREATININE (test code = CREAT) 1.0 mg/dL 0.6-1.3 N CALCIUM (test code = CA) 8.2 mg/dL 8.0-10.5 N THYROID STIMULATING [id number] 15:57:00* Test Item Value Reference Range Interpretation Comments THYROID STIMULATING HORMONE (test code = TSH) 0.42-5.4 7 [id number] 15:57:00* Test Item Value Reference Range Interpretation Comments TROPONIN-I (test code = TROPI) < 0.015 ng/mL 0.000-0.045 N Negative: <= 0.045 Positive: >= 0.046 Correlation with serial results, other cardiac markers andclinical findings is necessary to determine the clinicalsignificance of this result. Results using different methodologies should not be comparedto one another as quantitative results may vary by method. - CT HEAD/BRAIN W/O [id number] 15:50:00 Name: JAMARCUS GARCES [facility] : 1985 Age/S: 33 / F [address] [place] [address] Unit #: [id number] Loc: [place] [address] Phys: Lynne Arauz NP Acct: [id number] Dis Date: Status: REG ER PHONE #: [phone] Exam Date: 03/18/2019 1539 FAX #: [phone] Reason: dizziness EXAMS: CPT CODE: [id number] CT HEAD/BRAIN W/O CONT 40076 PROCEDURE: CT head without contrast INDICATION: Dizziness. Tachycardia. COMPARISON: None. TECHNIQUE: Noncontrast helical imaging performed skull base to the vertex. FINDINGS: BRAIN PARENCHYMA: No evidence for acute infarct. Normal glynn-white interfaces. No focal mass lesions. No mass effect, midline shift or edema. There are no intra-axial or extra- axial fluid collections, intraventricular or intraparenchymal hemorrhage. Pineal, sellar, brainstem, cerebellum and skull base regions appear unremarkable. VENTRICLES AND CISTERNS: Lateral ventricles, 3rd and 4th ventricles appear unremarkable. Basilar cisterns are normal. ORBITS, MASTOIDS AND PARANASAL SINUSES: The visualized aspects of the orbits appear unremarkable. Visualized aspects of the paranasal sinuses appear unremarkable. The mastoid air cells are clear. SKULL: No acute osseous abnormalities. IMPRESSION: 1. No evidence for acute intracranial abnormality. SL: [id number] at 1550 Reported and signed by: Karin Gutierrez M.D. CC: Lynne Arauz NP; Doc Bashir M.D. Technologist:Pat Blandon, RT(R)(CT) CTDI: DLP: Trnscb Date/Time: 03/18/2019 (1550) t.SDR.MSR4 Orig Print D/T: S: 03/18/2019 (7371) PAGE 1 Signed Report URINALYSIS [id number] 15:39:00* Test Item Value Reference Range Interpretation Comments UA COLOR (test code = COLU) YELLOW YEL/STRAW UA APPEARANCE (test code = APPU) CLEAR CLEAR UA GLUCOSE DIPSTICK (test code = DGLUU) NEGATIVE NEGATIVE UA BILIRUBIN DIPSTICK (test code = BILU) NEGATIVE NEGATIVE UA KETONE DIPSTICK (test code = KETU) NEGATIVE NEGATIVE UA SPECIFIC GRAVITY (test code = SGU) 1.020 1.005-1.030 N UA BLOOD DIPSTICK (test code = PETE) NEGATIVE NEGATIVE UA PH DIPSTICK (test code = SHORTY) 5.0 5.0-7.0 N UA PROTEIN DIPSTICK (test code = PROU) NEGATIVE NEGATIVE UA UROBILINIOGEN DIPSTICK (test code = URO) 0.2 mg/dL 0.2-1.0 UA NITRITE DIPSTICK (test code = EROS) NEGATIVE NEGATIVE UA LEUKOCYTE ESTERASE DIPSTICK (test code = LEUU) NEGATIVE NEGA TIVE UA WBC (test code = WBCU) 0-3 WBC/HPF 0-3 UA RBC (test code = RBCU) 4-10 RBC/HPF 0-3 UA BACTERIA (test code = BACU) NONE SEEN /HPF NONE SEEN UA SQUAMOUS CELLS (test code = SQU) 0-5 /HPF NONE SEEN UA MUCUS (test code = MUCU) 2+ /LPF NONE SEEN A CBC W/AUTO [id number] 15:35:00* Test Item Value Reference Range Interpretation Comments WHITE BLOOD CELL (test code = WBC) 7.40 x10 3/uL 4.5-11.0 N RED BLOOD CELL (test code = RBC) 5.45 x10 6/uL 3.54-5.02 H HEMOGLOBIN (test code = HGB) 14.1 g/dL 11.0-15.0 N HEMATOCRIT (test code = HCT) 44.6 % 33.0-45.0 N MEAN CELL VOLUME (test code = MCV) 81.8 fL 81.0-99.0 N MEAN CELL HGB (test code = MCH) 25.9 pg 27.0-33.0 L MEAN CELL HGB CONCETRATION (test code = MCHC) 31.6 g/dL 33.0-37. 0 L RED CELL DISTRIBUTION WIDTH CV (test code = RDW) 12.7 % 11.5- 14.5 N RED CELL DISTRIBUTION WIDTH SD (test code = RDW-SD) 37.7 fL 37 .0-54.0 N PLATELET COUNT (test code = PLT) 491 x10 3/uL 150-400 H MEAN PLATELET VOLUME (test code = MPV) 9.6 fL 7.0-9.0 H NEUTROPHIL % (test code = NT%) 52.6 % 56.0-77.0 L IMMATURE GRANULOCYTE % (test code = IG%) 1.1 % 0.0-2.0 N LYMPHOCYTE % (test code = LY%) 37.2 % 14.0-32.0 H MONOCYTE % (test code = MO%) 8.8 % 4.8-9.0 N EOSINOPHIL % (test code = EO%) 0.0 % 0.3-3.7 L BASOPHIL % (test code = BA%) 0.3 % 0.0-2.0 N NUCLEATED RBC % (test code = NRBC%) 0.0 % 0-0 N NEUTROPHIL # (test code = NT#) 3.90 x10 3/uL 2.0-7.6 N IMMATURE GRANULOCYTE # (test code = IG#) 0.08 x10 3/uL 0.00-0.03 H LYMPHOCYTE # (test code = LY#) 2.75 x10 3/uL 1.0-3.8 N MONOCYTE # (test code = MO#) 0.65 x10 3/uL 0.1-0.8 N EOSINOPHIL # (test code = EO#) 0.00 x10 3/uL 0.0-0.2 N BASOPHIL # (test code = BA#) 0.02 x10 3/uL 0.0-0.2 N NUCLEATED RBC # (test code = NRBC#) 0.00 x10 3/uL 0.0-0.1 N MANUAL DIFF REQUIRED (test code = MDIFF) NO - CT ABD PELVIS [id number] 20:54:00 Name: JAMARCUS GARCES [facility] : 1985 Age/S: 33 / F [address] [place] [address] Blvd Unit #: [id number] Loc: [place] [address] Phys: Lynne Arauz CASTING WHEEL OPERATOR Acct: [id number] Dis Date: Status: DEP ER PHONE #: [phone] Exam Date: 03/10/20192012 FAX #: [phone] Reason: h/o blood clot to ovary, h/o pancreatitis, abd EXAMS: CPT CODE: [id number] CT ABD PELVIS W/CONT 10389 Clinical Indication: CP, h/o blood clot Comparison: None TECHNIQUE: Helical imaging was performed after injection of IV contrast, from the chest through the symphysis with multiplanar reformations obtained. 3D Maximum Intensity Projected MIP reconstructions were obtained. IV CONTRAST: 100 mL of Isovue-300 GI CONTRAST: Oral contrast was administered. DLP: 455 mGy-cm FINDINGS: CT CHEST WITH CONTRAST: This study is nondiagnostic to evaluate for pulmonary PE due to poor bolus timing. The main pulmonary artery attenuation measures 98HU. It needs to be at least 200 HU to be diagnostic. LUNG PARENCHYMA AND PLEURA: There are no lung nodules. There is no significant interstitial lung disease. There are no pleural effusions. There is no pneumothorax. AIRWAY: The central airway is normal.. LYMPH NODES: No axillary, hilar or mediastinal lymphadenopathy is seen. HEART: The heart is normal in size. There is no pericardial effusion. VASCULAR STRUCTURES: No large saddle embolus is seen in the main pulmonary trunk. The proximal segmental and subsegmental branches of the pulmonary artery are unable to evaluate for emboli due to poor bolus timing. The great vessels are unremarkable. The thoracic aorta is within normal limits.. The superior vena cava is unremarkable. BONES: No aggressive bony lesions are seen. CT ABDOMEN AND PELVIS WITH CONTRAST: STOMACH: Gastric stapling is noted. A small hiatal hernia is present. LIVER: The liver parenchyma is normal in appearance without masses or intrahepatic biliary ductal dilatation. The portal vein is normal in mariam jarret. PAGE 1 Signed Report (CONTINU ED) Name: JAMARCUS GARCES [facility] [place] : 1985 Age/S: 33 / F [address] [place] [address] Unit #: [id number] Loc: [place] [address] Phys: Lynne Arauz CASTING WHEEL OPERATOR Acct: [id number] Dis Date: Status: DEP ER PHONE #: [phone] Exam Date: 03/10/20192012 FAX #: [phone] Reason: h/o blood clot to ovary, h/o pancreatitis, abd EXAMS: CPT CODE: [id number] CT ABD PE LVIS W/CONT 60573 <Continued> BILIARY TREE: The common bile duct is normal in caliber without evidence of filling defects. GALLBLADDER: The gallbladder has been surgically removed. PANCREAS: The pancreas is unremarkable. The pancreatic duct is normal in caliber. SPLEEN: The spleen is normal in size and there are no parenchymal abnormalities. ADRENALS: The right adrenal gland is unremarkable. The left adrenal gland is unremarkable. KIDNEYS: The kidneys demonstrates normal co ntrast enhancement. There are no masses. There is no evidence of renal or ureteral calculi. There is no evidence of hydronephrosis. GEOVANY WEL: The visualized portion of the esophagus is unremarkable. The stomach is unremarkable. The small bowel is normal in caliber and there is no ev idence of masses or obstruction. The colon is normal in caliber without a ny masses. Large amount of stool is seen throughout the colon. APPENDIX: The appendix is nonvisualized. PELVIS: There are no pelvic masses. The urinary bladder is unremarkable. The uterus and ovarie s are not visualized. PERITONEUM: There is no evidence for free in traperitoneal fluid or air. SOFT TISSUES: The soft tissues a re unremarkable. There is no evidence of masses or hernias. LYMPH NODES: There is no evidence of mesenteric, retroperitoneal, or ingui nal lymphadenopathy. VASCULATURE: The abdominal aorta is normal in caliber. The branches of the abdominal aorta are widely patent. MUSCULOSKELETAL: Mild retrolisthesis of L5 over S1 is present. PAGE 2 Signed Report (CONTINUED) Nam e: JAMARCUS GARCES [facility] : Age/S: 33 / F [address] [place] [address] Unit #: [id number] Loc: [place] [address] Phys: Lynne Arauz NP Acct: [id number] Dis John e: Status: DEP ER PHONE #: [phone] Exam Date: 03/10/20192012 FAX #: [phone] Reason: h/o blood clot to ovary, h/o pancreatitis, abd EXAMS: CPT CODE: [id number] CT ABD PELVIS W/CONT 30412 <Continued> IMPRESSION: This study is nondiagnostic to evaluate for pulmonary PE due to poor bolus timing. 1. No large saddle embolus the main pulmonary trunk. The proximal segmental and subsegmental branches of the pulmonary artery are unable to evaluate for emboli due to poor bolus timing. 2. No acute findings in the chest, abdomen, and pelvis.. 3. Small hiatal hernia. 4. Cholecystectomy. 5. Gastric stapling. 6. Constipation. 7. Hysterectomy. SL: [id number] at 2053 Reported and signed by: Gerson Barragan M.D. CC: Lynne Arauz NP Technologist:RT Ivan(R)(CT) CTDI: DLP: Trnscb Date/Time: 03/10/2019 (2053) t.SDR.LNV Orig Print D/T: S: 03/10/2019 (2056) PAGE 3 Signed Report - CT ABD PELVIS [id number] 20:54:00 Name: JAMARCUS CAGE [facility] : 1985 Age/S: 33 / F [address] [place] [address] Unit #: [id number] Loc: [place] [address] Phys: Lynne Arauz NP Acct: [id number] Dis Date: Status: REG ER PHONE #: [phone] Exam Date: 03/10/20192012 FAX #: [phone] Reason: h/o blood clot to ovary, h/o pancreatitis, abd EXAMS: CPT CODE: [id number] CT ABD PELVIS W/CONT 74151 Clinical Indication: CP, h/o blood clot Comparison: None TECHNIQUE: Helical imaging was performed after injection of IV contrast, from the chest through the symphysis with multiplanar reformations obtained. 3D Maximum Intensity Projected MIP reconstructions were obtained. IV CONTRAST: 100 mL of Isovue-300 GI CONTRAST: Oral contrast was administered. DLP: 455 mGy-cm FINDINGS: CT CHEST WITH CONTRAST: This study is nondiagnostic to evaluate for pulmonary PE due to poor bolus timing. The main pulmonary artery attenuation measures 98HU. It needs to be at least 200 HU to be diagnostic. LUNG PARENCHYMA AND PLEURA: There are no lung nodules. There is no significant interstitial lung disease. There are no pleural effusions. There is no pneumothorax. AIRWAY: The central airway is normal.. LYMPH NODES: No axillary, hilar or mediastinal lymphadenopathy is seen. HEART: The heart is normal in size. There is no pericardial effusion. VASCU LAR STRUCTURES: No large saddle embolus is seen in the main pulmonary trun k. The proximal segmental and subsegmental branches of the pulmonary brooks ry are unable to evaluate for emboli due to poor bolus timing. The great vessels are unremarkable. The thoracic aorta is within normal limits.. The superior vena cava is unremarkable. BONES: No aggressive bony les ions are seen. CT ABDOMEN AND PELVIS WITH CONTRAST: STOMACH: Gastric stapling is noted. A small hiatal hernia is present. LIVER: The liver parenchyma is normal in appearance without masses or intrahepatic biliary ductal dilatation. The portal vein is normal in mariam jarret. PAGE 1 Signed Report (CONTINU ED) Name: JAMARCUS CAGE [facility] : 1985 Age/S: 33 / F [address] [place], [place] [address]vd Unit #: [id number] Loc: [place] [address] Phys: Lynne Arauz CASTING WHEEL OPERATOR Acct: [id number] Dis Date: Status: REG ER PHONE #: [phone] Exam Date: 03/10/20192012 FAX #: Reason: h/o blood clot to ovary, h/o pancreatitis, abd EXAMS: CPT CODE: [id number] CT ABD PE LVIS W/CONT 64731 <Continued> BILIARY TREE: The common bile duct is normal in caliber without evidence of filling defects. GALLBLADDER: The gallbladder has been surgically removed. PANCREAS: The pancreas is unremarkable. The pancreatic duct is normal in caliber. SPLEEN: The spleen is normal in size and there are no parenchymal abnormalities. ADRENALS: The right adrenal gland is unremarkable. The left adrenal gland is unremarkable. KIDNEYS: The kidneys demonstrates normal co ntrast enhancement. There are no masses. There is no evidence of renal or ureteral calculi. There is no evidence of hydronephrosis. GEOVANY WEL: The visualized portion of the esophagus is unremarkable. The stomach is unremarkable. The small bowel is normal in caliber and there is no ev idence of masses or obstruction. The colon is normal in caliber without a ny masses. Large amount of stool is seen throughout the colon. APPENDIX: The appendix is nonvisualized. PELVIS: There are no pelvic masses. The urinary bladder is unremarkable. The uterus and ovarie s are not visualized. PERITONEUM: There is no evidence for free in traperitoneal fluid or air. SOFT TISSUES: The soft tissues a re unremarkable. There is no evidence of masses or hernias. LYMPH NODES: There is no evidence of mesenteric, retroperitoneal, or ingui nal lymphadenopathy. VASCULATURE: The abdominal aorta is normal in caliber. The branches of the abdominal aorta are widely patent. MUSCULOSKELETAL: Mild retrolisthesis of L5 over S1 is present. PAGE 2 Signed Report (CONTINUED) Nam e: JAMARCUS CAGE [facility] : Age/S: 33 / F [address] [place] [address] Unit #: [id number] Loc: [place] [address] Phys: Lynne Arauz NP Acct: [id number] Dis John e: Status: REG ER PHONE #: Exam Date: 03/10/20192012 FAX #: [phone] Reason: h/o blood clot to ovary, h/o pancreatitis, abd EXAMS: CPT CODE: [id number] CT ABD PELVIS W/CONT 69707 <Continued> IMPRESSION: This study is nondiagnostic to evaluate for pulmonary PE due to poor bolus timing. 1. No large saddle embolus the main pulmonary trunk. The proximal segmental and subsegmental branches of the pulmonary artery are unable to evaluate for emboli due to poor bolus timing. 2. No acute findings in the chest, abdomen, and pelvis.. 3. Small hiatal hernia. 4. Cholecystectomy. 5. Gastric stapling. 6. Constipation. 7. Hysterectomy. SL: [id number] at 2053 Reported and signed by: Gerson Barragan M.D. CC: Lynne Arauz NP Technologist:Pat Blandon RT(R)(CT) CTDI: DLP: Trnscb Date/Time: 03/10/2019 (2053) t.SDR.LNV Orig Print D/T: S: 03/10/2019 (2056) PAGE 3 Signed Report - CTA CHEST FOR [id number] 20:54:00 Name: JAMARCUS GARCES [facility] : 1985 Age/S: 33 / F [address] [place] [address] Unit #: [id number] Loc: [place] [address] Phys: Lynne Arauz NP Acct: [id number] Dis Date: Status: DEP ER PHONE #: [phone] Exam Date: 03/10/20192012 FAX #: [phone] Reason: CP, h/o blood clot EXAMS: CPT CODE: [id number] [place] [address] Clinical Indication: CP, h/o blood clot Comparison: None TECHNIQUE: Helical imaging was performed after injection of IV contrast, from the chest through the symphysis with multiplanar reformations obtained. 3D Maximum Intensity Projected MIP reconstructions were obtained. IV CONTRAST: 100 mL of Isovue-300 GI CONTRAST: Oral contrast was administered. DLP: 455 mGy-cm FINDINGS: CT CHEST WITH CONTRAST: This study is nondiagnostic to evaluate for pulmonary PE due to poor bolus timing. The main pulmonary artery attenuation measures 98HU. It needs to be at least 200 HU to be diagnostic. LUNG PARENCHYMA AND PLEURA: There are no lung nodules. There is no significant interstitial lung disease. There are no pleural effusions. There is no pneumothorax. AIRWAY: The central airway is normal.. LYMPH NODES: No axillary, hilar or mediastinal lymphadenopathy is seen. HEART: The heart is normal in size. There is no pericardial effusion. VASCU LAR STRUCTURES: No large saddle embolus is seen in the main pulmonary trun k. The proximal segmental and subsegmental branches of the pulmonary brooks ry are unable to evaluate for emboli due to poor bolus timing. The great vessels are unremarkable. The thoracic aorta is within normal limits.. The superior vena cava is unremarkable. BONES: No aggressive bony les ions are seen. CT ABDOMEN AND PELVIS WITH CONTRAST: STOMACH: Gastric stapling is noted. A small hiatal hernia is present. LIVER: The liver parenchyma is normal in appearance without masses or intrahepatic biliary ductal dilatation. The portal vein is normal in mariam jarret. PAGE 1 Signed Report (CONTINU ED) Name: JAMARCUS GARCES [facility] : 1985 Age/S: 33 / F [address] [place] [address] Blvd Unit #: [id number] Loc: [place] [address] Phys: Lynne Arauz CASTING WHEEL OPERATOR Acct: [id number] Dis Date: Status: DEP ER PHONE #: [phone] Exam Date: 03/10/20192012 FAX #: Reason: CP, h/o blood clot EXAMS: CPT CODE: [id number] [place] [address] <Continued> BILIARY TREE: The common bile duct is normal in caliber without evidence of filling defects. GALLBLADDER: The gallbladder has been surgically removed. PANCREAS: The pancreas is unremarkable. The pancreatic duct is normal in caliber. SPLEEN: The spleen is normal in size and there are no parenchymal abnormalities. ADRENALS: The right adrenal gland is unremarkable. The left adrenal gland is unremarkable. KIDNEYS: The kidneys demonstrates normal co ntrast enhancement. There are no masses. There is no evidence of renal or ureteral calculi. There is no evidence of hydronephrosis. GEOVANY WEL: The visualized portion of the esophagus is unremarkable. The stomach is unremarkable. The small bowel is normal in caliber and there is no ev idence of masses or obstruction. The colon is normal in caliber without a ny masses. Large amount of stool is seen throughout the colon. APPENDIX: The appendix is nonvisualized. PELVIS: There are no pelvic masses. The urinary bladder is unremarkable. The uterus and ovarie s are not visualized. PERITONEUM: There is no evidence for free in traperitoneal fluid or air. SOFT TISSUES: The soft tissues a re unremarkable. There is no evidence of masses or hernias. LYMPH NODES: There is no evidence of mesenteric, retroperitoneal, or ingui nal lymphadenopathy. VASCULATURE: The abdominal aorta is normal in caliber. The branches of the abdominal aorta are widely patent. MUSCULOSKELETAL: Mild retrolisthesis of L5 over S1 is present. PAGE 2 Signed Report (CONTINUED) Nam e: JAMARCUS GARCES [place] : Age/S: 33 / F [address] [place] [address] Unit #: [id number] Loc: [place] [address] Phys: Lynne Arauz CASTING WHEEL OPERATOR Acct: [id number] Dis John e: Status: DEP ER PHONE #: Exam Date: 03/10/20192012 FAX #: [phone] Reason: CP, h/o blood clot EXAMS: CPT CODE: [id number] [place] [address] <Continued> IMPRESSION: This study is nondiagnostic to evaluate for pulmonary PE due to poor bolus timing. 1. No large saddle embolus the main pulmonary trunk. The proximal segmental and subsegmental branches of the pulmonary artery are unable to evaluate for emboli due to poor bolus timing. 2. No acute findings in the chest, abdomen, and pelvis.. 3. Small hiatal hernia. 4. Cholecystectomy. 5. Gastric stapling. 6. Constipation. 7. Hysterectomy. SL: [id number] at 2053 Reported and signed by: Gerson Barragan M.D. CC: Lynne Arauz NP Technologist:Pat Blandon, RT(R)(CT) CTDI: DLP: Trnscb Date/Time: 03/10/2019 (2053) [email or web address] Orig Print D/T: S: 03/10/2019 (2056) PAGE 3 Signed Report - CTA CHEST FOR [id number] 20:54:00 Name: JAMARCUS CAGE : 1985 Age/S: 33 / F [address] [place] [address] Unit #: [id number] Loc: [place] [address] Phys: Lynne Arauz NP Acct: [id number] Dis Date: Status: REG ER PHONE #: [phone] Exam Date: 03/10/20192012 FAX #: [phone] Reason: CP, h/o blood clot EXAMS: CPT CODE: [id number] [place] [address] Clinical Indication: CP, h/o blood clot Comparison: None TECHNIQUE: Helical imaging was performed after injection of IV contrast, from the chest through the symphysis with multiplanar reformations obtained. 3D Maximum Intensity Projected MIP reconstructions were obtained. IV CONTRAST: 100 mL of Isovue-300 GI CONTRAST: Oral contrast was administered. DLP: 455 mGy-cm FINDINGS: CT CHEST WITH CONTRAST: This study is nondiagnostic to evaluate for pulmonary PE due to poor bolus timing. The main pulmonary artery attenuation measures 98HU. It needs to be at least 200 HU to be diagnostic. LUNG PARENCHYMA AND PLEURA: There are no lung nodules. There is no significant interstitial lung disease. There are no pleural effusions. There is no pneumothorax. AIRWAY: The central airway is normal.. LYMPH NODES: No axillary, hilar or mediastinal lymphadenopathy is seen. HEART: The heart is normal in size. There is no pericardial effusion. VASCU LAR STRUCTURES: No large saddle embolus is seen in the main pulmonary trun k. The proximal segmental and subsegmental branches of the pulmonary brooks ry are unable to evaluate for emboli due to poor bolus timing. The great vessels are unremarkable. The thoracic aorta is within normal limits.. The superior vena cava is unremarkable. BONES: No aggressive bony les ions are seen. CT ABDOMEN AND PELVIS WITH CONTRAST: STOMACH: Gastric stapling is noted. A small hiatal hernia is present. LIVER: The liver parenchyma is normal in appearance without masses or intrahepatic biliary ductal dilatation. The portal vein is normal in mariam jarret. PAGE 1 Signed Report (CONTINU ED) Name: JAMARCUS CAGE [facility] : 1985 Age/S: 33 / F [address] [place] [address] Blvd Unit #: [id number] Loc: [place] [address] Phys: Lynne Arauz NP Acct: [id number] Dis Date: Status: REG ER PHONE #: [phone] Exam Date: 03/10/20192012 FAX #: [phone] Reason: CP, h/o blood clot EXAMS: CPT CODE: [id number] [place] [address] <Continued> BILIARY TREE: The common bile duct is normal in caliber without evidence of filling defects. GALLBLADDER: The gallbladder has been surgically removed. PANCREAS: The pancreas is unremarkable. The pancreatic duct is normal in caliber. SPLEEN: The spleen is normal in size and there are no parenchymal abnormalities. ADRENALS: The right adrenal gland is unremarkable. The left adrenal gland is unremarkable. KIDNEYS: The kidneys demonstrates normal co ntrast enhancement. There are no masses. There is no evidence of renal or ureteral calculi. There is no evidence of hydronephrosis. GEOVANY WEL: The visualized portion of the esophagus is unremarkable. The stomach is unremarkable. The small bowel is normal in caliber and there is no ev idence of masses or obstruction. The colon is normal in caliber without a ny masses. Large amount of stool is seen throughout the colon. APPENDIX: The appendix is nonvisualized. PELVIS: There are no pelvic masses. The urinary bladder is unremarkable. The uterus and ovarie s are not visualized. PERITONEUM: There is no evidence for free in traperitoneal fluid or air. SOFT TISSUES: The soft tissues a re unremarkable. There is no evidence of masses or hernias. LYMPH NODES: There is no evidence of mesenteric, retroperitoneal, or ingui nal lymphadenopathy. VASCULATURE: The abdominal aorta is normal in caliber. The branches of the abdominal aorta are widely patent. MUSCULOSKELETAL: Mild retrolisthesis of L5 over S1 is present. PAGE 2 Signed Report (CONTINUED) Nam e: JAMARCUS CAGE [facility] : Age/S: 33 / F [address] [place] [address] Unit #: [id number] Loc: [place] [address] Phys: Lynne Arauz NP Acct: [id number] Dis John e: Status: REG ER PHONE #: Exam Date: 03/10/20192012 FAX #: [phone] Reason: CP, h/o blood clot EXAMS: CPT CODE: [id number] [place] [address] <Continued> IMPRESSION: This study is nondiagnostic to evaluate for pulmonary PE due to poor bolus timing. 1. No large saddle embolus the main pulmonary trunk. The proximal segmental and subsegmental branches of the pulmonary artery are unable to evaluate for emboli due to poor bolus timing. 2. No acute findings in the chest, abdomen, and pelvis.. 3. Small hiatal hernia. 4. Cholecystectomy. 5. Gastric stapling. 6. Constipation. 7. Hysterectomy. SL: [id number] at 2053 Reported and signed by: Gerson Barragan M.D. CC: Lynne Arauz NP Technologist:Pat Blandon, RT(R)(CT) CTDI: DLP: Trnscb Date/Time: 03/10/2019 (2053) t.[email or web address] Orig Print D/T: S: 03/10/2019 (2056) PAGE 3 Signed Report B-TYPE NATRIURETIC [id number] 19:52:00* Test Item Value Reference Range Interpretation Comments B-TYPE NATRIURETIC PEPTIDE (test code = BNP) 7.6 PG/ML 0-100 N - XR CHEST 1 [id number] 19:24:00 FAX: Lynne Arauz NP [phone] [place]: [address]: DEP Name: JAMARCUS MORA [facility] : [birth year] Age/S: 33/F [address] [place] [address] Unit #: [id number] Loc: [place] [address] Phys: Lynne Arauz NP Acct: [id number] Dis Date: Status: DEP ER PHONE #: [phone] Exam Date: 03/10/20191921 FAX #: [phone] Reason: Chest Pain EXAMS: CPT CODE: [id number] XR CHEST 1 V 64916 Clinical Indication: Chest pain Comparison: None FINDINGS: The frontal chest ra diograph shows normal lung volumes. No interstitial or airspace opacities are seen. No pleural effusions are present. No pneumothorax is seen. The heart is normal in size. The trachea is midline. T here are no clinically significant osseous abnormalities noted. IMPRESSION: No chest radiographic evidence of acute cardiopulmonary dis ease. SL: [id number] at 1924 Reported and terrance d by: Gerson Barragan M.D. CC: Lynne Arauz NP Technologist: RT Yuliet(R)Christine Trnscrd Date/Time/By: 03/10/2019 (1923) : By: MaryLNV Orig Print D/T: S: 03/10/2019 (1926) PAGE 1 Signed Report - XR CHEST 1 [id number] 19:24:00 FAX: Lynne Arauz NP [phone] [place]: St: REG Name: Court GIBBONSALMA ROSAJAMARCUS [facility] : [birth year] Age/S: 33/F [address] [place] [address] Unit #: [id number] Loc: [place] [address] Phys: Lynne Arauz NP Acct: [id number] Dis Date: Status: REG ER PHONE #: [phone] Exam Date: 03/10/20191921 FAX #: [phone] Reason: Chest Pain EXAMS: CPT CODE: [id number] XR CHEST 1 V 38656 Clinical Indication: Chest pain Comparison: None FINDINGS: The frontal chest ra diograph shows normal lung volumes. No interstitial or airspace opacities are seen. No pleural effusions are present. No pneumothorax is seen. The heart is normal in size. The trachea is midline. T here are no clinically significant osseous abnormalities noted. IMPRESSION: No chest radiographic evidence of acute cardiopulmonary dis ease. SL: [id number] at 1924 Reported and terrance d by: Gerson Barragan M.D. CC: Lynne Arauz NP Technologist: RT Yuliet(Christine)Christine Trnscrd Date/Time/By: 03/10/2019 (1923) : By: MaryLNV Orig Print D/T: S: 03/10/2019 (1926) PAGE 1 Signed Report CBC W/AUTO [id number] 19:23:00* Test Item Value Reference Range Interpretation Comments WHITE BLOOD CELL (test code = WBC) 8.08 x10 3/uL 4.5-11.0 N RED BLOOD CELL (test code = RBC) 4.64 x10 6/uL 3.54-5.02 N HEMOGLOBIN (test code = HGB) 12.3 g/dL 11.0-15.0 N HEMATOCRIT (test code = HCT) 38.5 % 33.0-45.0 N MEAN CELL VOLUME (test code = MCV) 83.0 fL 81.0-99.0 N MEAN CELL HGB (test code = MCH) 26.5 pg 27.0-33.0 L MEAN CELL HGB CONCETRATION (test code = MCHC) 31.9 g/dL 33.0-37. 0 L RED CELL DISTRIBUTION WIDTH CV (test code = RDW) 12.9 % 11.5- 14.5 N RED CELL DISTRIBUTION WIDTH SD (test code = RDW-SD) 38.5 fL 37 .0-54.0 N PLATELET COUNT (test code = PLT) 360 x10 3/uL 150-400 N MEAN PLATELET VOLUME (test code = MPV) 9.9 fL 7.0-9.0 H NEUTROPHIL % (test code = NT%) 58.1 % 56.0-77.0 N IMMATURE GRANULOCYTE % (test code = IG%) 0.6 % 0.0-2.0 N LYMPHOCYTE % (test code = LY%) 33.4 % 14.0-32.0 H MONOCYTE % (test code = MO%) 7.4 % 4.8-9.0 N EOSINOPHIL % (test code = EO%) 0.0 % 0.3-3.7 L BASOPHIL % (test code = BA%) 0.5 % 0.0-2.0 N NUCLEATED RBC % (test code = NRBC%) 0.0 % 0-0 N NEUTROPHIL # (test code = NT#) 4.69 x10 3/uL 2.0-7.6 N IMMATURE GRANULOCYTE # (test code = IG#) 0.05 x10 3/uL 0.00-0.03 H LYMPHOCYTE # (test code = LY#) 2.70 x10 3/uL 1.0-3.8 N MONOCYTE # (test code = MO#) 0.60 x10 3/uL 0.1-0.8 N EOSINOPHIL # (test code = EO#) 0.00 x10 3/uL 0.0-0.2 N BASOPHIL # (test code = BA#) 0.04 x10 3/uL 0.0-0.2 N NUCLEATED RBC # (test code = NRBC#) 0.00 x10 3/uL 0.0-0.1 N MANUAL DIFF REQUIRED (test code = MDIFF) NO PROTHROMBIN [id number] 19:12:00* Test Item Value Reference Range Interpretation Comments PROTHROMBIN TIME PATIENT (test code = PTP) 12.9 SECONDS 9.3-12.9 N INTERNATIONAL NORMAL RATIO (test code = INR) 1.1 0.8-1.2 N TARGET INR BY INDICATION Indication INR1. Prophylaxis of venous thrombosis 2.0 - 3.0 (orthopedic surgery), Prophylaxis of venous thrombosis (other than high-risk surgery), Treatment of Deep Vein Thrombosis/Pulmonary Embolism, Prevention of systemic embolism - Tissue heart valves, Acute Myocardial Infarction (to prevent systemic embolism), Valvular heart disease, Atrial Fibrillation, Bileaflet mechanical valve in aortic position.2. Mechanical prosthetic valves (high risk), 2.5 - 3.5 Presence of Lupus Anticoagulant or Antiphospholipid Antibodies, Prevention of systemic embolism - Acute Myocardial Infarction (to prevent recurrent infarct). THROMBOPLASTIN TIME [id number] 19:12:00* Test Item Value Reference Range Interpretation Comments THROMBOPLASTIN TIME PARTIAL (test code = PTT) 38.3 Seconds 25.0-39. 5 N Therapeutic Range: 50.4 - 88.3 Seconds Effective 01/26/2019 BASIC METABOLIC [id number] 19:10:00* Test Item Value Reference Range Interpretation Comments SODIUM (test code = NA) 138 mEq/L 134-147 N POTASSIUM (test code = K) 4.0 mEq/L 3.4-5.0 N CHLORIDE (test code = CL) 106 mEq/L 100-108 N CARBON DIOXIDE (test code = CO2) 28 mEq/L 21-33 N ANION GAP (test code = GAP) 8 0-20 N GLUCOSE (test code = GLU) 84 mg/dL 70-110 N BLOOD UREA NITROGEN (test code = BUN) 10 mg/dL 7-18 N GLOMERULAR FILTRATION RATE (test code = GFR) 71.3 105-110 L Units of measure = ml/min/1.73 m2 CREATININE (test code = CREAT) 0.9 mg/dL 0.6-1.3 N CALCIUM (test code = CA) 8.3 mg/dL 8.0-10.5 N HEPATIC FUNCTION [id number] 19:10:00* Test Item Value Reference Range Interpretation Comments TOTAL PROTEIN (test code = PROT) 7.2 g/dL 6.4-8.2 N ALBUMIN (test code = ALB) 3.50 g/dL 3.4-5.0 N BILIRUBIN TOTAL (test code = BILT) 0.30 mg/dL 0.0-1.0 N BILIRUBIN DIRECT (test code = BILD) < 0.10 MG/DL 0.0-0.30 N BILIRUBIN INDIRECT (test code = BILIND) 0.20 MG/DL SGOT/AST (test code = AST) 31 IUnit/L 15-37 N SGPT/ALT (test code = ALT) 116 IUnit/L 15-65 H ALKALINE PHOSPHATASE TOTAL (test code = ALKP) 198 IUnit/L 20-125 H [id number] 19:10:00* Test Item Value Reference Range Interpretation Comments LIPASE (test code = LIP) 406 IUnit/L 73-393 H BASIC METABOLIC [id number] 19:08:00* Test Item Value Reference Range Interpretation Comments SODIUM (test code = NA) 138 mEq/L 134-147 N POTASSIUM (test code = K) 4.0 mEq/L 3.4-5.0 N CHLORIDE (test code = CL) 106 mEq/L 100-108 N CARBON DIOXIDE (test code = CO2) 28 mEq/L 21-33 N ANION GAP (test code = GAP) 8 0-20 N GLUCOSE (test code = GLU) 84 mg/dL 70-110 N BLOOD UREA NITROGEN (test code = BUN) 10 mg/dL 7-18 N GLOMERULAR FILTRATION RATE (test code = GFR) 71.3 105-110 L Units of measure = ml/min/1.73 m2 CREATININE (test code = CREAT) 0.9 mg/dL 0.6-1.3 N CALCIUM (test code = CA) 8.3 mg/dL 8.0-10.5 N HEPATIC FUNCTION [id number] 19:08:00* Test Item Value Reference Range Interpretation Comments TOTAL PROTEIN (test code = PROT) g/dL 6.4-8.2 ALBUMIN (test code = ALB) 3.50 g/dL 3.4-5.0 N BILIRUBIN TOTAL (test code = BILT) mg/dL 0.0-1.0 BILIRUBIN DIRECT (test code = BILD) < 0.10 MG/DL 0.0-0.30 N SGOT/AST (test code = AST) 31 IUnit/L 15-37 N SGPT/ALT (test code = ALT) 116 IUnit/L 15-65 H ALKALINE PHOSPHATASE TOTAL (test code = ALKP) IUnit/L 20-125 [id number] 19:08:00* Test Item Value Reference Range Interpretation Comments LIPASE (test code = LIP) 406 IUnit/L 73-393 H TROPONIN-I [id number] 18:58:00* Test Item Value Reference Range Interpretation Comments TROPONIN-I RAPID (test code = TROPIRAP) 0.00 ng/mL 0.00-0.08 N Performed by certified renovator machine operator at [facility] Negative: <= 0.08 Positive: >= 0.09An elevated troponin value alone is not sufficient todiagnose a myocardial infarction. Rather, the patient sclinical presentation (history, physical exam) and ECGshould be used in conjunction with troponin in thediagnostic evaluation of suspected myocardial infarction. Aserial sampling protocol is recommended to facilitate the identification of temporal changes in troponin levels characteristic of AK. [id number] 17:12:00* Test Item Value Reference Range Interpretation Comments LIPASE (test code = LIP) 394 IUnit/L 73-393 H PROTHROMBIN [id number] 17:00:00* Test Item Value Reference Range Interpretation Comments PROTHROMBIN TIME PATIENT (test code = PTP) 12.6 SECONDS 9.3-12.9 N INTERNATIONAL NORMAL RATIO (test code = INR) 1.1 0.8-1.2 N TARGET INR BY INDICATION Indication INR1. Prophylaxis of venous thrombosis 2.0 - 3.0 (orthopedic surgery), Prophylaxis of venous thrombosis (other than high-risk surgery), Treatment of Deep Vein Thrombosis/Pulmonary Embolism, Prevention of systemic embolism - Tissue heart valves, Acute Myocardial Infarction (to prevent systemic embolism), Valvular heart disease, Atrial Fibrillation, Bileaflet mechanical valve in aortic position.2. Mechanical prosthetic valves (high risk), 2.5 - 3.5 Presence of Lupus Anticoagulant or Antiphospholipid Antibodies, Prevention of systemic embolism - Acute Myocardial Infarction (to prevent recurrent infarct). PROTHROMBIN [id number] 05:53:00* Test Item Value Reference Range Interpretation Comments PROTHROMBIN TIME PATIENT (test code = PTP) 13.8 SECONDS 9.3-12.9 H INTERNATIONAL NORMAL RATIO (test code = INR) 1.2 0.8-1.2 N TARGET INR BY INDICATION Indication INR1. Prophylaxis of venous thrombosis 2.0 - 3.0 (orthopedic surgery), Prophylaxis of venous thrombosis (other than high-risk surgery), Treatment of Deep Vein Thrombosis/Pulmonary Embolism, Prevention of systemic embolism - Tissue heart valves, Acute Myocardial Infarction (to prevent systemic embolism), Valvular heart disease, Atrial Fibrillation, Bileaflet mechanical valve in aortic position.2. Mechanical prosthetic valves (high risk), 2.5 - 3.5 Presence of Lupus Anticoagulant or Antiphospholipid Antibodies, Prevention of systemic embolism - Acute Myocardial Infarction (to prevent recurrent infarct). [id number] 03:47:00* Test Item Value Reference Range Interpretation Comments GLUBED (test code = GLUBED) 78 MG/DL 70-110 N Performed by certified renovator machine operator at [facility] [id number] 19:49:00* Test Item Value Reference Range Interpretation Comments GLUBED (test code = GLUBED) 128 MG/DL 70-110 H Performed by certified renovator machine operator at [facility] [id number] 19:49:00* Test Item Value Reference Range Interpretation Comments GLUBED (test code = GLUBED) 51 MG/DL 70-110 L Performed by certified renovator machine operator at [facility] COMPREHENSIVE METABOLIC [id number] 09:43:00* Test Item Value Reference Range Interpretation Comments SODIUM (test code = NA) 140 mEq/L 134-147 N POTASSIUM (test code = K) 4.2 mEq/L 3.4-5.0 N CHLORIDE (test code = CL) 106 mEq/L 100-108 N CARBON DIOXIDE (test code = CO2) 31 mEq/L 21-33 N ANION GAP (test code = GAP) 7 0-20 N GLUCOSE (test code = GLU) 86 mg/dL 70-110 BLOOD UREA NITROGEN (test code = BUN) 8 mg/dL 7-18 N GLOMERULAR FILTRATION RATE (test code = GFR) 81.6 105-110 L Units of measure = ml/min/1.73 m2 CREATININE (test code = CREAT) 0.8 mg/dL 0.6-1.3 N TOTAL PROTEIN (test code = PROT) 6.1 g/dL 6.4-8.2 L ALBUMIN (test code = ALB) 3.00 g/dL 3.4-5.0 L CALCIUM (test code = CA) 7.8 mg/dL 8.0-10.5 L BILIRUBIN TOTAL (test code = BILT) 0.30 mg/dL 0.0-1.0 SGOT/AST (test code = AST) 58 IUnit/L 15-37 H SGPT/ALT (test code = ALT) 241 IUnit/L 15-65 H ALKALINE PHOSPHATASE TOTAL (test code = ALKP) 204 IUnit/L 20-125 H [id number] 09:43:00* Test Item Value Reference Range Interpretation Comments LIPASE (test code = LIP) 462 IUnit/L 73-393 H CBC W/AUTO [id number] 09:39:00* Test Item Value Reference Range Interpretation Comments WHITE BLOOD CELL (test code = WBC) 5.04 x10 3/uL 4.5-11.0 N RED BLOOD CELL (test code = RBC) 4.37 x10 6/uL 3.54-5.02 N HEMOGLOBIN (test code = HGB) 11.3 g/dL 11.0-15.0 N HEMATOCRIT (test code = HCT) 36.5 % 33.0-45.0 N MEAN CELL VOLUME (test code = MCV) 83.5 fL 81.0-99.0 N MEAN CELL HGB (test code = MCH) 25.9 pg 27.0-33.0 L MEAN CELL HGB CONCETRATION (test code = MCHC) 31.0 g/dL 33.0-37. 0 L RED CELL DISTRIBUTION WIDTH CV (test code = RDW) 12.5 % 11.5- 14.5 N RED CELL DISTRIBUTION WIDTH SD (test code = RDW-SD) 38.0 fL 37 .0-54.0 N PLATELET COUNT (test code = PLT) 304 x10 3/uL 150-400 N MEAN PLATELET VOLUME (test code = MPV) 9.4 fL 7.0-9.0 H NEUTROPHIL % (test code = NT%) 51.8 % 56.0-77.0 L IMMATURE GRANULOCYTE % (test code = IG%) 0.6 % 0.0-2.0 N LYMPHOCYTE % (test code = LY%) 38.9 % 14.0-32.0 H MONOCYTE % (test code = MO%) 7.9 % 4.8-9.0 N EOSINOPHIL % (test code = EO%) 0.0 % 0.3-3.7 L BASOPHIL % (test code = BA%) 0.8 % 0.0-2.0 N NUCLEATED RBC % (test code = NRBC%) 0.0 % 0-0 N NEUTROPHIL # (test code = NT#) 2.61 x10 3/uL 2.0-7.6 N IMMATURE GRANULOCYTE # (test code = IG#) 0.03 x10 3/uL 0.00-0.03 N LYMPHOCYTE # (test code = LY#) 1.96 x10 3/uL 1.0-3.8 N MONOCYTE # (test code = MO#) 0.40 x10 3/uL 0.1-0.8 N EOSINOPHIL # (test code = EO#) 0.00 x10 3/uL 0.0-0.2 N BASOPHIL # (test code = BA#) 0.04 x10 3/uL 0.0-0.2 N NUCLEATED RBC # (test code = NRBC#) 0.00 x10 3/uL 0.0-0.1 N MANUAL DIFF REQUIRED (test code = MDIFF) NO [id number] 09:19:00* Test Item Value Reference Range Interpretation Comments GLUBED (test code = GLUBED) 89 MG/DL 70-110 N Performed by certified renovator machine operator at [facility] [id number] 07:52:00* Test Item Value Reference Range Interpretation Comments GLUBED (test code = GLUBED) 171 MG/DL 70-110 H Performed by certified renovator machine operator at [facility] [id number] 07:52:00* Test Item Value Reference Range Interpretation Comments GLUBED (test code = GLUBED) 51 MG/DL 70-110 L Performed by certified renovator machine operator at [facility] HEPATIC FUNCTION [id number] 11:53:00* Test Item Value Reference Range Interpretation Comments TOTAL PROTEIN (test code = PROT) 6.5 g/dL 6.4-8.2 N ALBUMIN (test code = ALB) 3.40 g/dL 3.4-5.0 N BILIRUBIN TOTAL (test code = BILT) 0.70 mg/dL 0.0-1.0 N BILIRUBIN DIRECT (test code = BILD) 0.20 MG/DL 0.0-0.30 BILIRUBIN INDIRECT (test code = BILIND) 0.50 MG/DL SGOT/AST (test code = AST) 219 IUnit/L 15-37 H SGPT/ALT (test code = ALT) 397 IUnit/L 15-65 H ALKALINE PHOSPHATASE TOTAL (test code = ALKP) 242 IUnit/L 20-125 H BASIC METABOLIC [id number] 09:01:00* Test Item Value Reference Range Interpretation Comments SODIUM (test code = NA) 139 mEq/L 134-147 N POTASSIUM (test code = K) 3.8 mEq/L 3.4-5.0 N CHLORIDE (test code = CL) 105 mEq/L 100-108 N CARBON DIOXIDE (test code = CO2) 27 mEq/L 21-33 N ANION GAP (test code = GAP) 11 0-20 N GLUCOSE (test code = GLU) 55 mg/dL 70-110 L BLOOD UREA NITROGEN (test code = BUN) 9 mg/dL 7-18 N GLOMERULAR FILTRATION RATE (test code = GFR) 81.6 105-110 L Units of measure = ml/min/1.73 m2 CREATININE (test code = CREAT) 0.8 mg/dL 0.6-1.3 N CALCIUM (test code = CA) 8.5 mg/dL 8.0-10.5 N [id number] 09:01:00* Test Item Value Reference Range Interpretation Comments LIPASE (test code = LIP) 672 IUnit/L 73-393 H CBC W/AUTO [id number] 07:35:00* Test Item Value Reference Range Interpretation Comments WHITE BLOOD CELL (test code = WBC) 5.60 x10 3/uL 4.5-11.0 N RED BLOOD CELL (test code = RBC) 4.64 x10 6/uL 3.54-5.02 N HEMOGLOBIN (test code = HGB) 12.1 g/dL 11.0-15.0 N HEMATOCRIT (test code = HCT) 39.1 % 33.0-45.0 N MEAN CELL VOLUME (test code = MCV) 84.3 fL 81.0-99.0 N MEAN CELL HGB (test code = MCH) 26.1 pg 27.0-33.0 L MEAN CELL HGB CONCETRATION (test code = MCHC) 30.9 g/dL 33.0-37. 0 L RED CELL DISTRIBUTION WIDTH CV (test code = RDW) 12.6 % 11.5- 14.5 N RED CELL DISTRIBUTION WIDTH SD (test code = RDW-SD) 38.8 fL 37 .0-54.0 N PLATELET COUNT (test code = PLT) 320 x10 3/uL 150-400 N MEAN PLATELET VOLUME (test code = MPV) 9.8 fL 7.0-9.0 H NEUTROPHIL % (test code = NT%) 49.2 % 56.0-77.0 L IMMATURE GRANULOCYTE % (test code = IG%) 1.1 % 0.0-2.0 N LYMPHOCYTE % (test code = LY%) 41.3 % 14.0-32.0 H MONOCYTE % (test code = MO%) 7.7 % 4.8-9.0 N EOSINOPHIL % (test code = EO%) 0.0 % 0.3-3.7 L BASOPHIL % (test code = BA%) 0.7 % 0.0-2.0 N NUCLEATED RBC % (test code = NRBC%) 0.0 % 0-0 N NEUTROPHIL # (test code = NT#) 2.76 x10 3/uL 2.0-7.6 N IMMATURE GRANULOCYTE # (test code = IG#) 0.06 x10 3/uL 0.00-0.03 H LYMPHOCYTE # (test code = LY#) 2.31 x10 3/uL 1.0-3.8 N MONOCYTE # (test code = MO#) 0.43 x10 3/uL 0.1-0.8 N EOSINOPHIL # (test code = EO#) 0.00 x10 3/uL 0.0-0.2 N BASOPHIL # (test code = BA#) 0.04 x10 3/uL 0.0-0.2 N NUCLEATED RBC # (test code = NRBC#) 0.00 x10 3/uL 0.0-0.1 N MANUAL DIFF REQUIRED (test code = MDIFF) NO - MRI ABDOMEN W/O [id number] 12:36:00 FAX: Glenn Subramanian MD [phone] [place]: St: ADM FAX: Doc Bates [phone] FAX: Matias Dinero [phone] Name: TARASDELIAJAMARCUS [facility] : 1985 Age/S: 33/F [address] [place] [address] Unit #: [id number] Loc: [address] [address] Phys: Matias Aquino MD Acct: [id number] Dis Date: Status: ADM IN ONE #: [phone] Exam Date: 03/05/2019 1256 FAX #: [phone] Reason: r/o cbd stone; pancraetis EXAMS: CPT CODE: [id number] MR I ABDOMEN W/O CON 29013 PROCEDURE: MRI ABDOMEN WITHOUT CONTRAST (MRCP) INDICATION: Acute pancreatitis. Acute hepatitis. Previous cholecystectomy. Rule out CBD stone. COMPARISON: Current right upper quadrant ultrasound and CT TE CHNIQUE: T2 weighted three-dimensional imaging of the biliary tree was per formed. Supplemental T2-weighted multiplanar sequences were obtained. FINDINGS: COMMON DUCT: Normal course and caliber. No intralumi nal filling defects. Common duct diameter 7 mm. Accessory right hepatic d uct joins the common duct at the level of head of pancreas. Please note that sensitivity for ampullary defects may be limited by this modalit y. INTRAHEPATIC BRANCHES: Normal. GALLBLADDER: Surgi barbara absent PANCREATIC DUCT: Normal course and caliber with domin ant drainage at the level of ampulla. ABDOMINAL VISCERA: Exa mination not designed for survey of the abdominal viscera. The liver, panc reas, spleen, adrenal glands and kidneys maintain normal T2 signal intensi ty. Additional comments: No free intraperitoneal fluid. The visua lized skeleton maintains normal marrow signal intensity. I MPRESSION: Negative MRCP. Common duct 7 mm, normal for postcholecystect shawna state without intraluminal filling defects demonstrated. SL: [id number] PAGE 1 Signed Report (CONTINUED) FAX: Glenn Subramanian MD [phone] [place]: St: ADM FAX: Doc Bates [phone] FAX: Matias Dinero [phone] Name: JAMARCUS GARCES [facility] : 1985 Age/S: 33/F [address] [place] [address] Unit #: [id number] Loc: [address] [place] [address] Phys: Matias Aquino MD Acct: [id number] Dis Date: Status: ADM IN PHONE #: [phone] Exam Date: 1251 FAX #: [phone] Reason: r/o cbd ston e; pancraetis EXAMS: CPT CODE: [id number] MRI ABDOMEN W/O CON 32841 <Continued> at 1236 Reported and signed by: Rayshawn Coffman M.D. CC: Glenn Subramanian MD; Doc Bashir M.D.; Matias Aquino MD Technologist: RT Gerard(R)(CT)(MR) Trnscrd Date/Time/By: 03/05/2019 (1236) : By: Nancy Orig Print D/T: S: 03/05/2019 (9692) PAGE 2 Signed Report - US ABDOMEN [id number] 11:24:00 Name: JAMARCUS GARCES [facility] : 1985 Age/S: 33 / F [address] [place] [address] Unit #: [id number] Loc: [place] [address] Phys: Darshan Antonio MD Acct: [id number] Di s Date: Status: ADM IN PHONE #: Exam Date: 03/05/2019 1021 FAX #: Reason: ACUTE PANCREATITIS , ACUTE HEPATITIS EXAMS: CPT CODE: [id number] US ABDOMEN LTD 15116 PROCEDURE: RIGHT UPPER QU ADRANT ULTRASOUND INDICATION: ACUTE PANCREATITIS , ACUTE HEPATITI S COMPARISON: CT 03/05/2019 TECHNIQUE: Sonographic evaluation of the right upper quadrant was performed with supplemental col or and pulsed Doppler. FINDINGS: LIVER: The liver is normal in contour and morphology with normal parenchymal echogenicity. Hepatoped al flow in the main portal vein. GALLBLADDER: Surgically absent BILE DUCTS: No biliary dilatation. The common duct measures 6 mm. PANCREAS: The visualized pancreas appears normal. RIGHT KIDNEY: The right kidney measures 10.1 cm in length. Normal renal contour and morphology with normal echogenicity. There is no hydronephrosis. Additional comments: No free intraperitoneal fluid. IMPRESSION: Negative right upper quadrant ultrasound. SL: CLR [id number] at 1124 Reported and signed by: Rayshawn Coffman M.D. CC: Doc meeks M.D.; Darshan Antonio MD Technologist: Mana Frank RDMS (AB) (O B) Trnscb Date/Time: 03/05/2019 (1124) [email or web address] Orig Print D/T: S: 03/05/2019 (1127) Probe: PAGE 1 Signed Report - US TRANSVAGINAL NON [id number] 11:12:00 Name: JAMARCUS GARCES : 1985 Age/S: 33 / F [address] [place] [address] Bl Unit #: [id number] Loc: [place] [address] Phys: Glenn Subramanian MD Acct: [id number] Dis Date: Status: ADM IN PHONE #: [phone] Exam Date: 03/05/2019 1036 FAX #: [phone] Reason: LT OVARIAN THROMBOSIS EXAMS: CPT CODE: [id number] [place] [address] Exam: Pelvic ultrasound. Exam date: March 05, 2019. CLINICAL HISTORY: Pelvic pain. COMPARISON: CT scan March 05, 2019 and ultrasound March 04, 2019. Real-time transabdominal and transvaginal imaging of the pelvis with spectral Doppler analysis and color-flow imaging demonstrates a surgically absent uterus. The right ovary measures 2.7 x 2.0 x 2.4 cm and has a normal sonographic appearance. The left ovary measures 3.1 x 2.8 x 2.3 cm and has a normal sonographic appearance. Small amount of free fluid is identified. The previously noted left ovarian vein thrombosis is identified identified. IMPRESSION: 1. Surgically absent uterus. 2. Normal-appearing ovaries. 3. Previously noted left ovarian vein thrombosis is again identified. at 1112 Reported and signed by: Crystal Ty M.D. CC: Glenn Subramanian MD; Doc Bashir M.D. Technologist: Mana Frank RDMS () (OB) Trnscb Date/Time: 03/05/2019 (1112) MaryCER Orig Print D/T: S: 03/05/2019 (1115) Probe: [id number] PAGE 1 Signed Report - US PELVIS [id number] 11:12:00 Name: JAMARCUS GARCES [facility] : 1985 Age/S: 33 / F [address] [place] [address] Unit #: [id number] Loc: [place], [place] [address] Phys: Glenn Subramanian MD Acct: [id number] Dis Date: Status: ADM IN PHONE #: [phone] Exam Date: 03/05/2019 1036 FAX #: [phone] Reason: LEFT OVARIAN THROMBOSIS EXAMS: CPT CODE: [id number] US PELVIS COMPLETE 23618 Exam: Pelvic ultrasound. Exam date: March 05, 2019. CLINICAL HISTORY: Pelvic pain. COMPARISON: CT scan March 05, 2019 and ultrasound March 04, 2019. Real-time transabdominal and transvaginal imaging of the pelvis with spectral Doppler analysis and color-flow imaging demonstrates a surgically absent uterus. The right ovary measures 2.7 x 2.0 x 2.4 cm and has a normal sonographic appearance. The left ovary measures 3.1 x 2.8 x 2.3 cm and has a normal sonographic appearance. Small amount of free fluid is identified. The previously noted left ovarian vein thrombosis is identified identified. IMPRESSION: 1. Surgically absent uterus. 2. Normal-appearing ovaries. 3. Previously noted left ovarian vein thrombosis is again identified. at 1112 Reported and signed by: Crystal Ty M.D. CC: Glenn Subramanian MD; Doc Bashir M.D. Technologist: Mana Frank RDMS (AB) (OB) Trnscb Date/Time: 03/05/2019 (1112) [email or web address] Orig Print D/T: S: 03/05/2019 (1115) Probe: PAGE 1 Signed Report ACUTE HEPATITIS [id number] 08:45:00* Test Item Value Reference Range Interpretation Comments AB HEPATITIS A IGM (test code = HAVMAB) NON REACTIVE INDEX NON REAC T. AG HEPATITIS B SURFACE (test code = HBSAG) NON REACTIVE INDEX NonRe active AB HEPATITIS B CORE IGM (test code = HBCMAB) NON REACTIVE INDEX NON REACT. AB HEPATITIS C (test code = HCVAB) NON REACTIVE INDEX NON REACT. - CT ABD PELVIS [id number] 08:07:00 Name: JAMARCUS GARCES : 1985 Age/S: 33 / F [address] [place] [address] Unit #: [id number] Loc: [place] [address] Phys: Darshan Antonio MD Acct: [id number] Dis Date: Status: ADM IN PHONE #: [phone] Exam Date: 03/05/2019 043 FAX #: [phone] Reason: acute pancreatitis Report Has Been Amended EXAMS: CPT CODE: [id number] CT ABD PELVIS W/CONT 15018 Addendum - 03/05/2019 SIGNED 03/05/2019 ADDENDUM: [id number] CT/CTABPLW Addendum: IMPRESSION: 1. A 1.8 cm complex cystic structure in the anterior left pelvis may represent left ovarian cyst. 2. Findings are suspicious for probably thrombosed left ovarian vein. Please note that patient's recent pelvic ultrasound from 03/04/2019 has shown flow to the left ovary. Please correlate. MRI of the pelvis or repeat ultrasound may be beneficial. 3. Hysterectomy. Cholecystectomy. Finding were discussed to on 03/05/2019, 0800 hours SL: MEGHANN at 0807 Reported and signed by: Lj Fernandez M.D. Report EXAM: CT, CT ABDOMEN PELVIS W CONTRAST: 03/05/2019, 0427 hours HISTORY: acute pancreatitis COMPARISON: Ultrasound dated 03/04/2019. CT scan dated 05/05/2018. TECHNIQUE: Helical imaging was performed from diaphragm through the symphysis with coronal and sagittal reconstructions. CT imaging was performed with exposure control parameters to reduce radiation dose. IV CONTRAST: 100 cc Isovue. GI CONTRAST: YES CT Radiation Dose: DLP = 229.56 mGy-cm FINDINGS: LOWER CHEST: The visualized lung bases are clear. PAGE 1 Signed Report (CONTINUED) Name: JAMARCUS GARCES : 1985 Age/S: 33 / F [address] [place] [address] Unit #: [id number] Loc: [place] [address] Phys: Darshan [place] MD Acct: [id number] Dis Date: Status: ADM IN P SIMONE #: [phone] Exam Date: 03/05/2019431 FAX #: [phone] Reason: acute pancreatitis Report Has Been Amended EXAMS: CPT CODE: [id number] CT ABD PELVIS W/CONT 93008 <Continued> LIVER: Mild hepatic steatosis. GALLBLADDER: Surgically absent. INTRAHEPATIC BILE DUCT AND EXTRAHEPATIC BILE DUCT: Unremarkable. PANCREAS: Unremarkable. SPLEEN: Unremarkable. ADRENALS: Unremarkable. KIDNEYS AND URETERS: Unremarkable. STOMACH: Prior gastric bypass surgical changes. The ingested contrast has passed into the jejunum with no evidence for contrast extravasation. Oblique BOWEL: The small bowel loops in the abdomen and pelvis appear unremarkable. The colonic loops in the abdomen and pelvis appear unremarkable. APPENDIX: Not seen on the exam. No inflammatory changes in the right lower flank. PERITONEUM AND RETROPERITONEUM: No ascites or free air. There is no aortic aneurysm or dissection. A tubular structure without enhancement in the left retroperitoneum probably thrombosed left ovarian vein LYMPH NODES: Unremarkable. PELVIS: No pelvic mass or adenopathy. Hysterectomy. A 1.8 cm complex cystic structure in the anterior left pelvis may represent ovarian cyst. BLADDER: Unremarkable. OSSEOUS STRUCTURES: No acute abnormality seen. SOFT TISSUES: Unremarkable. IMPRESSION: 1. No acute abdominal or pelvic abnormality. 2. A 1.8 cm complex cystic structure in the anterior left pelvis may represent left ovarian cyst. A tubular structure without enhancement in the left retroperitoneum probably thrombosed left ovarian vein. Please note that patient's recent pelvic ultrasound from 03/04/20 19 has shown flow to the left ovary. Please correlate. 3. Hyst erectomy. Cholecystectomy. PAGE 2 Signed R eport (CONTINUED) Name: JAMARCUS GARCES [facility] : 1985 Age/S: 33 / F [address] [facility] Unit #: [id number] Loc: [place], [place] [address] Phys: Darshan Antonio MD Acct: [id number] Dis Date: Status: ADM IN PHONE #: [phone] Exam Date: 03/05/2019431 FAX #: [phone] Reason: acute pancreatitis Report Has Been Amended EXAMS: CPT CODE: [id number] CT ABD PELVIS W/CONT 76062 <Continued> SL: JSYED-H at 0610 Reported and signed by: Lj Fernandez M.D. CC: Doc Bashir M.D.; Darshan Antonio MD Technologist:José Manuel Bundy, RT(R)(CT) CTDI: DLP: Trnscb Date/Time: 03/05/2019 (06) [email or web address] Orig Print D/T: S: 03/05/2019 (0689) PAGE 3 Signed Report ACUTE HEPATITIS [id number] 08:05:00* Test Item Value Reference Range Interpretation Comments AB HEPATITIS A IGM (test code = HAVMAB) INDEX NON REACT. AG HEPATITIS B SURFACE (test code = HBSAG) NON REACTIVE INDEX NonRe active AB HEPATITIS B CORE IGM (test code = HBCMAB) INDEX NON REACT . AB HEPATITIS C (test code = HCVAB) INDEX NON REACT. - CT ABD PELVIS [id number] 06:10:00 Name: JAMARCUS GARCES [facility] : 1985 Age/S: 33 / F [address] [place] [address] Unit #: [id number] Loc: [place] [address] Phys: Darshan Antonio MD Acct: [id number] Dis Date: Status: ADM IN PHONE #: [phone] Exam Date: 03/05/2019 0432 FAX #: [phone] Reason: acute pancreatitis EXAMS: CPT CODE: [id number] CT ABD PELVIS W/CONT 48196 EXAM: CT, CT ABDOMEN PELVIS W CONTRAST: 03/05/2019, 0427 hours HISTORY: acute pancreatitis COMPARISON: Ultrasound dated 03/04/2019. CT scan dated 05/05/2018. TECHNIQUE: Helical imaging was performed from diaphragm through the symphysis with coronal and sagittal reconstructions. CT imaging was performed with exposure control parameters to reduce radiation dose. IV CONTRAST: 100 cc Isovue. GI CONTRAST: YES CT Radiation Dose: DLP = 229.56 mGy-cm FINDINGS: LOWER CHEST: The visualized lung bases are clear. LIVER: Mild hepatic steatosis. GALLBLADDER: Surgically absent. INTRAHEPATIC BILE DUCT AND EXTRAHEPATIC BILE DUCT: Unremarkable. PANCREAS: Unremarkable. SPLEEN: Unremarkable. ADRENALS: Unremarkable. KIDNEYS AND URETERS: Unremarkable. STOMACH: Prior gastric bypass surgical changes. The ingested contrast has passed into the jejunum with no evidence for contrast extravasation. Oblique BOWEL: The small bowel loops in the abdomen and pelvis appear unremarkable. The colonic loops in the abdomen and pelvis appear unremarkable. APPENDIX: Not seen on the exam. No inflammatory changes in the right lower flank. PERITONEUM AND RETROPERITONEUM: No ascites or free air. There is no aortic aneurysm or dissection. A tubular structure without enhancement in the left retroperitoneum probably thrombosed left ovarian vein LYMPH NODES: Unremarkable. PELVIS: No pelvic mass or adenopathy. Hysterectomy. A 1.8 cm complex cystic structure in the anterior left pelvis may represent ovarian cyst. PAGE 1 Signed Report (CONTINUED) Name: JAMARCUS GARCES [facility] : 1985 Age/S: 33 / F [address] [place] [address] Unit #: [id number] Loc: [place] [address] Phys: Partha Antonio MD Acct: [id number] Dis Date: Status: ADM IN PHONE #: [phone] Exam Date: 03/05/2019 0432 FAX #: Reason: acute pancreatitis EXAMS: CPT CODE: [id number] CT ABD PELVIS W/CONT 23156 <Continued> BLADDER: Unremarkable. OSSEOUS STRUCTURES: No acute abnormality seen. SOFT TISSUES: Unremarkable. IMPRESSION: 1. No acute abdominal or pelvic abnormality. 2. A 1.8 cm complex cystic structure in the anterior left pelvis may represent left ovarian cyst. A tubular structure without enhancement in the left retroperitoneum probably thrombosed left ovarian vein. Please note that patient's recent pelvic ultrasound from 03/04/2019 has shown flow to the left o vary. Please correlate. 3. Hysterectomy. Cholecystectomy. SL: MEGHANN at 0610 Reported and signed by: Lj gómez M.D. CC: Doc Bashir M.D.; Darshan Antonio MD Technologist:RT Oz(R)(CT) CTDI: DLP: Trnscb Date/Time: 03/05/2019 (0610) [email or web address] Orig Print D/T: S: 03/05/2019 (0654) PAGE 2 Signed Report COMPREHENSIVE METABOLIC [id number] 03:53:00* Test Item Value Reference Range Interpretation Comments SODIUM (test code = NA) 138 mEq/L 134-147 N POTASSIUM (test code = K) 3.7 mEq/L 3.4-5.0 N CHLORIDE (test code = CL) 106 mEq/L 100-108 N CARBON DIOXIDE (test code = CO2) 26 mEq/L 21-33 N ANION GAP (test code = GAP) 10 0-20 N GLUCOSE (test code = GLU) 82 mg/dL 70-110 N BLOOD UREA NITROGEN (test code = BUN) 12 mg/dL 7-18 N GLOMERULAR FILTRATION RATE (test code = GFR) 63.1 105-110 L Units of measure = ml/min/1.73 m2 CREATININE (test code = CREAT) 1.0 mg/dL 0.6-1.3 N TOTAL PROTEIN (test code = PROT) 6.2 g/dL 6.4-8.2 L ALBUMIN (test code = ALB) 3.20 g/dL 3.4-5.0 L CALCIUM (test code = CA) 7.9 mg/dL 8.0-10.5 L BILIRUBIN TOTAL (test code = BILT) 0.70 mg/dL 0.0-1.0 N SGOT/AST (test code = AST) 441 IUnit/L 15-37 H SGPT/ALT (test code = ALT) 392 IUnit/L 15-65 H ALKALINE PHOSPHATASE TOTAL (test code = ALKP) 210 IUnit/L 20-125 H [id number] 03:53:00* Test Item Value Reference Range Interpretation Comments LIPASE (test code = LIP) 2650 IUnit/L 73-393 H - US TRANSVAGINAL W/[id number] 00:02:00 Patient Name: JAMARCUS GARCES Unit No: [id number] EXAMS: CPT CODE: [id number] US TRANSVAGINAL W/PELVIS 14926 EXAM: US, US PELVIS COMPLETE: 03/04/2019, 2320 hours EXAM: US, US TRANSVAGINAL W/PELVIS: 03/04/2019, 2320 hours History: Abdominal pain. Pelvic pain. Hysterectomy last year due to fibroid/adenomyosis. COMPARISON: 05/08/2018. 02/23/2019 TECHNIQUE: Sonographic evaluation is performed using grayscale, color flow and Doppler imaging as appropriate. Transvaginal and transabdominal pelvic imaging was performed. FINDINGS: Transabdominal pelvic ultrasound: Uterus is surgically absent. The right ovary measures 3.4 x 1.7 x 1.7 cm. Left ovary measures 3.2 x 2.0 x 1.9 cm. Normal flow is noted to the both ovaries. Endovaginal pelvic ultrasound: Uterus is surgically absent. Peristalsing bowel loops are noted in the pelvis. Right ovary: Not visualized, obscured by bowel gas Left ovary: Not visualized, obscured by bowel gas. No free fluid seen in the pelvis. IMPRESSION: 1. Normal ovaries, seen only on transabdominal pelvic ultra sound, obscured by bowel gas on the endovaginal pelvic ultrasound. 2. Hys terectomy. SL:MEGHANN at 0002 Reported and signed by: Lj Fernandez M.D. CC: Doc Bashir MD Technologist: Brenda Aviles RDMS Probe: [id number] Trnscrbd D/ (0002) [email or web address] Orig Print D/T: S: 02/11 (0005) [facility] NAME: ZORAN GARCES Radiology Department PHYS: Kalina Miranda [address] : 1985 AGE: 33 SEX : F [place], [place] [address] LOC: [facility] PHONE #: [phone] EXAM DATE: 03/04/2019 STATUS: REG ER Andrea AX #: [phone] RAD NO: Page 1 Signed Report Patient Name: JAMARCUS GARCES Unit No: [id number] EXAMS: CPT CODE: [id number] US TRANSVAGINAL W/PELVIS 71725 <Continued> [facility] NAME: JAMARCUS GARCES Radiology Department PHYS: Gavin Miranda [address] : 1985 AGE: 33 SEX: F [place], [place] [address] LOC: [facility] PHONE #: [phone] EXAM DATE: 03/04/2019 STATUS: REG ER FAX #: [phone] RAD NO: Page 2 Signed Report - US PELVIS [id number] 00:02:00 Patient Name: JAMARCUS GARCES Unit No: [id number] EXAMS: CPT CODE: [id number] US PEL VIS COMPLETE 61666 EXAM: US, US PELVIS COM PLETE: 03/04/2019, 2320 hours EXAM: US, US TRANSVAGINAL W/PELVIS: 03/04/2019, 2320 hours History: Abdominal pain. Pelvic pain. Hysterectomy last year du e to fibroid/adenomyosis. COMPARISON: 05/08/2018. 02/23/2019 TECHNIQUE: Sonographic evaluation is performed using grayscale, color flow and Doppler keri ging as appropriate. Transvaginal and transabdominal pelvic imaging was perfor med. FINDINGS: Transabdominal pelvic ultrasound: Uterus is surgically abse nt. The right ovary measures 3.4 x 1.7 x 1.7 cm. Left ovary measures 3.2 x 2.0 x 1.9 cm. Normal flow is noted to the both ovaries. Endovaginal pelvic ultrasound: Uterus is surgically absent. Peristalsing bowel loops are noted in the pelvis. Right ovary: Not visualized, obscured by bowel gas Left ovary: Not visualized, obscured by bowel gas. No free fluid seen in the pelvis. IMPRESSION: 1. Normal ovaries, seen only on transabdominal pelvic ultra sound, obscured by bowel gas on the endovaginal pelvic ultrasound. 2. Hys terectomy. SL:MEGHANN at 0002 Reported and signed by: Lj Fernandez M.D. CC: Doc Bashir MD Technologist: Brenda Aviles RDMS Probe: Trnscrbd D/ (0002) [email or web address] Orig Print D/T: S: 02/11 (0005) [facility] NAME: ZORAN GARCES Radiology Department PHYS: ANDREASAvel PintoKalina [address] : 1985 AGE: 33 SEX : F [place], [place] [address] LOC: [place] PHONE #: [phone] EXAM DATE: 03/04/2019 STATUS: REG ER F AX #: [phone] RAD NO: Page 1 Signed Report Patient Name: JAMARCUS GARCES Unit No: [id number] EXAMS: CPT CODE: [id number] US PELVIS COMPLETE 17092 <Continued> [facility] NAME: ASA GARCESLLE Radiology Department PHYS: ANDREASAvel PintoGavin [address] : 1985 AGE: 33 SEX: F [place] [address] LOC: [facility] PHONE #: [phone] EXAM DATE: 03/04/2019 STATUS: REG ER FAX #: [phone] RAD NO: Page 2 Signed Report COMPREHENSIVE METABOLIC [id number] 23:32:00* Test Item Value Reference Range Interpretation Comments SODIUM (test code = NA) 138 mEq/L 135-145 N POTASSIUM (test code = K) 4.2 mEq/L 3.5-5.0 N CHLORIDE (test code = CL) 104 mEq/L 100-115 N CARBON DIOXIDE (test code = CO2) 27 mEq/L 22-31 N ANION GAP (test code = GAP) 11.30 10-20 N GLUCOSE (test code = GLU) 93 mg/dL 65-110 N BLOOD UREA NITROGEN (test code = BUN) 14 mg/dL 7-18 N GLOMERULAR FILTRATION RATE (test code = GFR) 47 ml/min >60 L CREATININE (test code = CREAT) 1.3 mg/dL 0.5-1.0 H TOTAL PROTEIN (test code = PROT) 6.7 gm/dL 6.3-8.2 N ALBUMIN (test code = ALB) 3.3 gm/dL 3.4-4.8 L CALCIUM (test code = CA) 7.8 mg/dL 8.4-10.2 L BILIRUBIN TOTAL (test code = BILT) 0.3 mg/dL 0.2-1.0 N SGOT/AST (test code = AST) 276 units/L 15-37 H SGPT/ALT (test code = ALT) 354 units/L 12-78 H ALKALINE PHOSPHATASE TOTAL (test code = ALKP) 197 units/L 46-116 H [id number] 23:32:00* Test Item Value Reference Range Interpretation Comments LIPASE (test code = LIP) 623 units/L 73-393 H COMPREHENSIVE METABOLIC [id number] 23:24:00* Test Item Value Reference Range Interpretation Comments SODIUM (test code = NA) 138 mEq/L 135-145 N POTASSIUM (test code = K) 4.2 mEq/L 3.5-5.0 N CHLORIDE (test code = CL) 104 mEq/L 100-115 N CARBON DIOXIDE (test code = CO2) 27 mEq/L 22-31 N ANION GAP (test code = GAP) 11.30 10-20 N GLUCOSE (test code = GLU) 93 mg/dL 65-110 N BLOOD UREA NITROGEN (test code = BUN) 14 mg/dL 7-18 N GLOMERULAR FILTRATION RATE (test code = GFR) 47 ml/min >60 L CREATININE (test code = CREAT) 1.3 mg/dL 0.5-1.0 H TOTAL PROTEIN (test code = PROT) gm/dL 6.3-8.2 ALBUMIN (test code = ALB) 3.3 gm/dL 3.4-4.8 L CALCIUM (test code = CA) 7.8 mg/dL 8.4-10.2 L BILIRUBIN TOTAL (test code = BILT) mg/dL 0.2-1.0 SGOT/AST (test code = AST) units/L 15-37 SGPT/ALT (test code = ALT) units/L 12-78 ALKALINE PHOSPHATASE TOTAL (test code = ALKP) units/L 46-116 [id number] 23:24:00* Test Item Value Reference Range Interpretation Comments LIPASE (test code = LIP) 623 units/L 73-393 H COMPREHENSIVE METABOLIC [id number] 23:16:00* Test Item Value Reference Range Interpretation Comments SODIUM (test code = NA) 138 mEq/L 135-145 N POTASSIUM (test code = K) 4.2 mEq/L 3.5-5.0 N CHLORIDE (test code = CL) 104 mEq/L 100-115 N CARBON DIOXIDE (test code = CO2) 27 mEq/L 22-31 N ANION GAP (test code = GAP) 11.30 10-20 N GLUCOSE (test code = GLU) 93 mg/dL 65-110 N BLOOD UREA NITROGEN (test code = BUN) 14 mg/dL 7-18 N GLOMERULAR FILTRATION RATE (test code = GFR) 47 ml/min >60 L CREATININE (test code = CREAT) 1.3 mg/dL 0.5-1.0 H TOTAL PROTEIN (test code = PROT) gm/dL 6.3-8.2 ALBUMIN (test code = ALB) 3.3 gm/dL 3.4-4.8 L CALCIUM (test code = CA) 7.8 mg/dL 8.4-10.2 L BILIRUBIN TOTAL (test code = BILT) mg/dL 0.2-1.0 SGOT/AST (test code = AST) units/L 15-37 SGPT/ALT (test code = ALT) units/L 12-78 ALKALINE PHOSPHATASE TOTAL (test code = ALKP) units/L 46-116 [id number] 23:16:00* Test Item Value Reference Range Interpretation Comments LIPASE (test code = LIP) units/L 73-393 UA RFLX MICR CULT IF [id number] 23:14:00* Test Item Value Reference Range Interpretation Comments UA COLOR (test code = COLU) YELLOW YELLOW UA APPEARANCE (test code = APPU) CLEAR CLEAR UA GLUCOSE DIPSTICK (test code = DGLUU) NEGATIVE NEGATIVE UA BILIRUBIN DIPSTICK (test code = BILU) NEGATIVE NEGATIVE UA KETONE DIPSTICK (test code = KETU) NEGATIVE NEGATIVE UA SPECIFIC GRAVITY (test code = SGU) <= 1.005 1.001-1.035 N UA BLOOD DIPSTICK (test code = PETE) NEG NEGATIVE UA PH DIPSTICK (test code = SHORTY) 6.0 5-9 UA PROTEIN DIPSTICK (test code = PROU) NEGATIVE NEGATIVE UA UROBILINIOGEN DIPSTICK (test code = URO) 0.2 EU/dL <=1.0 UA NITRITE DIPSTICK (test code = EROS) NEGATIVE NEGATIVE UA LEUKOCYTE ESTERASE DIPSTICK (test code = LEUU) NEG NEGA TIVE UA WBC (test code = WBCU) 0-2 #/hpf NONE SEEN UA RBC (test code = RBCU) 0-2 #/hpf NONE SEEN UA EPITHELIAL CELLS (test code = EPIU) FEW #/hpf NONE SEEN UA BACTERIA (test code = BACU) FEW #/hpf NONE SEEN A UR HCG [id number] 23:14:00* Test Item Value Reference Range Interpretation Comments UR HCG QUAL (test code = HCGQLU) NEGATIVE 1. Very dilute urine specimens, as indicated by a lowspecific gravity, may not contain route sales representative levels ofhCG. 2. False negative results may occur when the levels of hCGare below the sensitivity level of the test. If is still suspected, a first morningurine specimen should be collected 48 hours later andtested. CBC W/AUTO [id number] 23:09:00* Test Item Value Reference Range Interpretation Comments WHITE BLOOD CELL (test code = WBC) 7.2 K/mm3 6.6-12.1 N RED BLOOD CELL (test code = RBC) 4.52 M/mm3 3.45-5.01 N HEMOGLOBIN (test code = HGB) 11.9 g/dL 10.7-13.9 N HEMATOCRIT (test code = HCT) 37.8 % 32.1-42.1 N MEAN CELL VOLUME (test code = MCV) 84 fL 84.1-94.8 L MEAN CELL HGB (test code = MCH) 26.3 pg 27-35 L MEAN CELL HGB CONCETRATION (test code = MCHC) 31.5 gm/dL 32.2-34. 1 L RED CELL DISTRIBUTION WIDTH (test code = RDW) 12.9 % 12.4-16. 5 N PLATELET COUNT (test code = PLT) 316 K/mm3 133-385 N IMMATURE PLATELET FRACTION (test code = IPF) 0.0 % 0.0-10.8 N MEAN PLATELET VOLUME (test code = MPV) 9.9 fl 9.1-12.7 N NEUTROPHIL % (test code = NT%) 55.9 % 56.5-79.4 L LYMPHOCYTE % (test code = LY%) 33.8 % 14.3-34.3 N MONOCYTE % (test code = MO%) 9.1 % 5.1-10.4 N EOSINOPHIL % (test code = EO%) 0.0 % 0.1-3.0 L BASOPHIL % (test code = BA%) 0.6 % 0.1-1.0 N NEUTROPHIL # (test code = NT#) 4.1 K/mm3 LYMPHOCYTE # (test code = LY#) 2.5 K/mm3 MONOCYTE # (test code = MO#) 0.7 K/mm3 EOSINOPHIL # (test code = EO#) 0 K/mm3 BASOPHIL # (test code = BA#) 0.0 K/mm3 RBC MORPHOLOGY REQUIRED (test code = RBCM) NORMAL NORMAL PLATELET MORPHOLOGY REQUIRED (test code = PLTMR) NORMAL ANIYAH L Stool [id number] 13:16:00* Test Item Value Reference Range Interpretation Comments Stool Calprotectin (test code = 28183-8) <16 0-120 Concentration Interpretation Follow-Up<16 - 50 ug/g Normal None>50 -120 ug/g Borderline Re-evaluate in 4-6 weeks >120 ug/g Abnormal Repeat as clinically indicatedPerformed at: [facility] [id number] Director: Christopher Arnold MD, Phone: [phone] [facility] HospitalClostridium Difficile Toxin A & [id number] 15:13:00* Test Item Value Reference Range Interpretation Comments Clostridium Difficile Toxin A & B (test code = 728649326) NEGATIVE NEGATIVE Testing on stool aspirate specimens is outside hay sorter claims since specime n type not validated on this assay.[facility]2019-02-26 14:10:00* Test Item Value Reference Range Interpretation Comments Stool Lactoferrin (LAB) (test code = 79777-8) NEGATIVE NEGATIVE Testing on stool aspirate specimens is outside hay sorter claims since specime n type not validated on this assay.[facility] [id number] 12:28:00* Test Item Value Reference Range Interpretation Comments POC-GLUCOSE METER (BEAKER) (test code = 1538) 188 mg/dL 70-110 H TESTED AT [facility] [address] [facility] [address] [address], [id number] 09:43:00FINAL REPORT INDICATION:Abdominal pain. COMPARISON: None. TECHNIQUE: CT of the Abdomen and Pelvis WITH intravenous contrast. Enteric contrast was used. The exam was performed according to our department dose-optimization protocol, which includes automated exposure control, adjustments of mA and kV according to patient size. Iterative reconstructions are also sometimes employed. FINDINGS:The patient is status post antecolic Chin-en-Y gastric bypass. No bowel obstruction or internal hernia is demonstrated. There is no evidence of bowel infection. Appendix is normal. No peritoneal free fluid. Mild increase in stool burden in the colon is noted. Right hepatic lobe oblong hypodense lesion measuring 2 x 1 cm is indeterminate. Overall the liver is normal in density, contour, and size. Patient is status post cholecystectomy. There is no biliary ductal dilatation. Pancreas, spleen, adrenal glands, kidneys, and bladder are unremarkable. Patient is status post hysterectomy. No pelvic, retroperitoneal, or upper abdominal lymphadenopathy is demonstrated. Mild facet arthropathy at L5-S1 is noted. IMPRESSION: Prior Chin-en-Y gastric bypass without bowel obstruction or internal hernia. Right hepatic lobe indeterminate 2 cm lesion. Comparison to prior cross- sectional imaging of the abdomen would be helpful. In the absence of that, a bdomen MR without and with intravenous contrast is recommended. Prior cholecyste ctomy and hysterectomy. Mild constipation. Signed: Alicia Gilmore MDReport Alaina ified Date/Time: 02/23/2019 09:43:27 Reading Location: [address] Ultrasound Reading Room -GLUCOSE [id number] 09:10:00* Test Item Value Reference Range Interpretation Comments POC-GLUCOSE METER (BEAKER) (test code = 1538) 65 mg/dL 70-110 L TESTED AT [facility] [address] [facility] [address] [id number] 08:53:00* Test Item Value Reference Range Interpretation Comments LIPASE (BEAKER) (test code = 749) 66 U/L 8-78 BASIC METABOLIC [id number] 08:53:00* Test Item Value Reference Range Interpretation Comments SODIUM (BEAKER) (test code = 381) 138 meq/L 136-145 POTASSIUM (BEAKER) (test code = 379) 3.4 meq/L 3.5-5.1 L CHLORIDE (BEAKER) (test code = 382) 107 meq/L 98-107 CO2 (BEAKER) (test code = 355) 25 meq/L 22-29 BLOOD UREA NITROGEN (BEAKER) (test code = 354) 13 mg/dL 7-21 CREATININE (BEAKER) (test code = 358) 0.84 mg/dL 0.57-1.25 GLUCOSE RANDOM (BEAKER) (test code = 652) 50 mg/dL 70-105 L CALCIUM (BEAKER) (test code = 697) 8.6 mg/dL 8.4-10.2 EGFR (BEAKER) (test code = 1092) 77 mL/min/1.73 sq m INSUFFICIENT CLINICAL DATA TO CALCULATE ESTIMATED GFR. HEPATIC FUNCTION [id number] 08:53:00* Test Item Value Reference Range Interpretation Comments TOTAL PROTEIN (BEAKER) (test code = 770) 6.6 gm/dL 6.0-8.3 ALBUMIN (BEAKER) (test code = 1145) 3.8 g/dL 3.5-5.0 BILIRUBIN TOTAL (BEAKER) (test code = 377) 0.4 mg/dL 0.2-1.2 BILIRUBIN DIRECT (BEAKER) (test code = 706) 0.2 mg/dL 0.1-0.5 ALKALINE PHOSPHATASE (BEAKER) (test code = 346) 125 U/L 40-150 AST (SGOT) (BEAKER) (test code = 353) 23 U/L 5-34 ALT (SGPT) (BEAKER) (test code = 347) 41 U/L 6-55 CBC W/PLT COUNT & AUTO [id number] 08:11:00* Test Item Value Reference Range Interpretation Comments WHITE BLOOD CELL COUNT (BEAKER) (test code = 775) 5.9 K/ L 3.5- 10.5 RED BLOOD CELL COUNT (BEAKER) (test code = 761) 4.67 M/ L 3.93-5 .22 HEMOGLOBIN (BEAKER) (test code = 410) 12.1 GM/DL 11.2-15.7 HEMATOCRIT (BEAKER) (test code = 411) 39.2 % 34.1-44.9 MEAN CORPUSCULAR VOLUME (BEAKER) (test code = 753) 83.9 fL 79. 4-94.8 MEAN CORPUSCULAR HEMOGLOBIN (BEAKER) (test code = 751) 25.9 pg 25.6-32.2 MEAN CORPUSCULAR HEMOGLOBIN CONC (BEAKER) (test code = 752) 30.9 GM/DL 32.2-35.5 L RED CELL DISTRIBUTION WIDTH (BEAKER) (test code = 412) 12.5 % 11.7-14.4 PLATELET COUNT (BEAKER) (test code = 756) 370 K/CU MM 150-450 MEAN PLATELET VOLUME (BEAKER) (test code = 754) 9.1 fL 9.4-12 .3 L NUCLEATED RED BLOOD CELLS (BEAKER) (test code = 413) 0 /100 WBC 0 -0 NEUTROPHILS RELATIVE PERCENT (BEAKER) (test code = 429) 57 % LYMPHOCYTES RELATIVE PERCENT (BEAKER) (test code = 430) 32 % MONOCYTES RELATIVE PERCENT (BEAKER) (test code = 431) 9 % EOSINOPHILS RELATIVE PERCENT (BEAKER) (test code = 432) 0 % BASOPHILS RELATIVE PERCENT (BEAKER) (test code = 437) 1 % NEUTROPHILS ABSOLUTE COUNT (BEAKER) (test code = 670) 3.35 K/ L 1.56-6.13 LYMPHOCYTES ABSOLUTE COUNT (BEAKER) (test code = 414) 1.89 K/ L 1.18-3.74 MONOCYTES ABSOLUTE COUNT (BEAKER) (test code = 415) 0.55 K/ L 0. 24-0.36 H EOSINOPHILS ABSOLUTE COUNT (BEAKER) (test code = 416) 0.00 K/ L 0.04-0.36 L BASOPHILS ABSOLUTE COUNT (BEAKER) (test code = 417) 0.03 K/ L 0. 01-0.08 IMMATURE GRANULOCYTES-RELATIVE PERCENT (BEAKER) (test code = 2801) 1 % 0-1 [id number] 13:39:00* Test Item Value Reference Range Interpretation Comments GLUBED (test code = GLUBED) 116 mg/dL 65-110 H UR HCG [id number] 12:32:00* Test Item Value Reference Range Interpretation Comments UR HCG QUAL (test code = HCGQLU) NEGATIVE 1. Very dilute urine specimens, as indicated by a lowspecific gravity, may not contain route sales representative levels ofhCG. 2. False negative results may occur when the levels of hCGare below the sensitivity level of the test. If is still suspected, a first morningurine specimen should be collected 48 hours later andtested. UA RFLX MICR CULT IF [id number] 12:30:00* Test Item Value Reference Range Interpretation Comments UA COLOR (test code = COLU) STRAW YELLOW UA APPEARANCE (test code = APPU) CLEAR CLEAR UA GLUCOSE DIPSTICK (test code = DGLUU) 2+ NEG A UA BILIRUBIN DIPSTICK (test code = BILU) NEGATIVE NEG UA KETONE DIPSTICK (test code = KETU) NEGATIVE NEG UA SPECIFIC GRAVITY (test code = SGU) 1.005 1.001-1.035 N UA BLOOD DIPSTICK (test code = PETE) NEG NEG UA PH DIPSTICK (test code = SHORTY) 6.0 5-9 UA PROTEIN DIPSTICK (test code = PROU) NEGATIVE NEG UA UROBILINIOGEN DIPSTICK (test code = URO) NEGATIVE mg/dL NEG UA NITRITE DIPSTICK (test code = EROS) NEG NEG UA LEUKOCYTE ESTERASE DIPSTICK (test code = LEUU) NEG NEG UA WBC (test code = WBCU) 0-2 #/hpf NONE SEEN UA RBC (test code = RBCU) 0-2 #/hpf NONE SEEN UA EPITHELIAL CELLS (test code = EPIU) RARE #/HPF RARE-FEW UA BACTERIA (test code = BACU) RARE /HPF RARE-FEW CREATINE KINASE (CK)2019-01-07 12:01:00* Test Item Value Reference Range Interpretation Comments CREATINE KINASE (CK) (test code = CK) 90 Units/L 26-192 N [id number] 12:01:00* Test Item Value Reference Range Interpretation Comments TROPONIN-I (test code = TROPI) <0.017 ng/mL <0.056 N COMPREHENSIVE METABOLIC [id number] 12:00:00* Test Item Value Reference Range Interpretation Comments SODIUM (test code = NA) 136 mEq/L 135-145 N POTASSIUM (test code = K) 4.1 mEq/L 3.5-5.0 N CHLORIDE (test code = CL) 101 mEq/L 100-115 N CARBON DIOXIDE (test code = CO2) 27 mEq/L 22-31 N ANION GAP (test code = GAP) 11.80 10-20 N GLUCOSE (test code = GLU) 81 mg/dL 65-110 N BLOOD UREA NITROGEN (test code = BUN) 15 mg/dL 7-18 N GLOMERULAR FILTRATION RATE (test code = GFR) 63 ml/min >60 N CREATININE (test code = CREAT) 1.0 mg/dL 0.5-1.0 N TOTAL PROTEIN (test code = PROT) 7.2 gm/dL 6.3-8.2 N ALBUMIN (test code = ALB) 3.5 gm/dL 3.4-4.8 N CALCIUM (test code = CA) 8.1 mg/dL 8.4-10.2 L BILIRUBIN TOTAL (test code = BILT) 0.4 mg/dL 0.2-1.0 N SGOT/AST (test code = AST) 18 units/L 15-37 N SGPT/ALT (test code = ALT) 21 units/L 12-78 N ALKALINE PHOSPHATASE TOTAL (test code = ALKP) 117 units/L 46-116 H [id number] 11:23:00* Test Item Value Reference Range Interpretation Comments GLUBED (test code = GLUBED) 52 mg/dL 65-110 L CBC W/AUTO [id number] 11:17:00* Test Item Value Reference Range Interpretation Comments WHITE BLOOD CELL (test code = WBC) 8.5 K/mm3 6.6-12.1 N RED BLOOD CELL (test code = RBC) 4.86 M/mm3 3.45-5.01 N HEMOGLOBIN (test code = HGB) 12.8 g/dL 10.7-13.9 N HEMATOCRIT (test code = HCT) 41.3 % 32.1-42.1 N MEAN CELL VOLUME (test code = MCV) 85 fL 84.1-94.8 N MEAN CELL HGB (test code = MCH) 26.3 pg 27-35 L MEAN CELL HGB CONCETRATION (test code = MCHC) 31.0 gm/dL 32.2-34. 1 L RED CELL DISTRIBUTION WIDTH (test code = RDW) 14.2 % 12.4-16. 5 N PLATELET COUNT (test code = PLT) 340 K/mm3 133-385 N IMMATURE PLATELET FRACTION (test code = IPF) 0.0 % 0.0-10.8 N MEAN PLATELET VOLUME (test code = MPV) 9.5 fl 9.1-12.7 N NEUTROPHIL % (test code = NT%) 53.1 % 56.5-79.4 L LYMPHOCYTE % (test code = LY%) 37.1 % 14.3-34.3 H MONOCYTE % (test code = MO%) 8.4 % 5.1-10.4 N EOSINOPHIL % (test code = EO%) 0.0 % 0.1-3.0 L BASOPHIL % (test code = BA%) 0.7 % 0.1-1.0 N NEUTROPHIL # (test code = NT#) 4.5 K/mm3 LYMPHOCYTE # (test code = LY#) 3.2 K/mm3 MONOCYTE # (test code = MO#) 0.7 K/mm3 EOSINOPHIL # (test code = EO#) 0 K/mm3 BASOPHIL # (test code = BA#) 0.1 K/mm3 RBC MORPHOLOGY REQUIRED (test code = RBCM) NORMAL NORMAL PLATELET MORPHOLOGY REQUIRED (test code = PLTMR) NORMAL ANIYAH L UTERUS,OTHER THAN PROLAPSE/[id number] 12:24:00 RUN DATE: 05/22/18 [facility] PAGE 1 RUN TIME: 1747 Specimen Inqui ry RUN USER: INTERFACE PATIENT: JAMARCUS GARCES ACCT #: [id number] [facility]: [id number] AGE/SX: 33/F ROOM: [facility] RE05/21/18CHINMAY DR: Doc Bashir DOB: [birth year] BED: A DIS: 05/22/18 STATUS: DIS Dwight TLOC: SPEC #: [id number] RECD: 05/21/18 STATUS: FILOMENA REQ #: [id number] LEFTY: 05/21/18- SUBM DR: Angeli Bashir MD ENTERED: 05/21/18 SP TYPE: UTERUSOTH OTHR DR: ORDERED: LEVEL V SURGICA CODES: [id number] - UTERUS, NOS PROCEDURES: LEVEL V SURGICA (Incomplete) TISSUES: UTERUS, NOS - UTERUS, CERVIX AND BI LATERAL FALLOPIAN TUBES CLINICAL HISTORY 33 year old, adenomyosis (k r) FINAL DIAGNOSIS Uterus, hysterectomy, cervix - chronic inflammatio n endometrium - proliferative pattern zenaida metrium - leiomyomata Fallopian tube, right - acute hemorrhage, focal Fallop maribel tube, left - histologic Tissue code 1 CPT code(s): 37276 bgw/ wpd 05/22/18 @ 1216 GROSS DESCRIPTION The specimen is received in for hepler, labeled with the patient's name and designated "uterus, cervix, bilater al fallopian tubes". It consists of a 9.7 x 7.0 x 4.5 cm hysterectomy specimen with bilateral fallopian tubes with fimbria attached. The uterus weighs 112 gm. The serosa is jesus, smooth, and glistening. The cervical external os m easures 0.7 cm. The portio vaginalis measures 3.5 cm. Director Industrial sections are submitted labeled A. The endometrium measures 0.1 cm. The myometrium measures up to 2.2 cm thick and contains jesus-white, firm nodules measuring up to 1.5 cm with no identifiable degenerative change. Director Industrial sections are submitted labeled B and C. The right fallopian tube with fimbria celena ures 8 x 0.5 x 0.5 cm and contains an oval shaped 4 x 2 x 1.5 cm paratubal red tissue/hematoma. The entire fimbria and one cross-section of fallopian tube w ith the paratubal red tissue are submitted and labeled D. CONTINUED ON NEXT PAGE RUN DATE: 05/22/18 [facility] PAGE 2 RUN TIME: 1747 Specimen Inquiry RUN USER: INTERFACE SPEC #: [id number] PATIENT: JAMARCUS GARCES #[id number] (Contin ued) GROSS DESCRIPTION (Continued) The left f allopian tube with fimbria measures 8 x 0.6 x 0.6 cm. The entire fimbria and one cross-section of fallopian tube are submitted and labeled E. ynes/leah 05/21/18 @ 0830 MICROSCOPIC DESCRIPTION The endometrium shows a proliferative pa ttern. The myometrium contains benign leiomyomata. bgw/wpd 05/22/18 @ 1216 Signed Jack Higginbotham 05/22/18 1224 END OF REPORT
== END 2020-05-11 20:37 | disposition home or self-care (01) ==
LOC: ER 18:15
DX: J12.9 Viral pneumonia, unspecified (principal); R07.89 Other chest pain; R05 Cough; R51 Headache; R19.7 Diarrhea, unspecified; Z20.828 Contact with and (suspected) exposure to other viral communicable diseases; Z98.84 Bariatric surgery status
CPT/HCPCS: 71045; 93005; 99283

== ENCOUNTER 2020-10-21 23:50 | Inpatient (IN) | payer OTHER ==
[~2020-10-21] VITALS: Ht 167.6 cm; Wt 72.6 kg
[2020-10-21] MEDS ORDERED: SODIUM CHLORIDE 0.9% 1000ML 1,000 ML IV STA (23:59)
[2020-10-22] VITALS (9 sets, daily range): BP systolic 108–134; BP diastolic 78–93
[2020-10-22] MEDS ORDERED: ONDANSETRON HCL INJ 2MG/ML 2ML 2 MG/ML VIAL IV ONE
[2020-10-22] MEDS ORDERED: KETOROLAC TROMETHAMINE 30 MG/ML VIAL IV ONE
[2020-10-22] MEDS ORDERED: FAMOTIDINE 20 MG/2 ML VIAL IV ONE
[2020-10-22] MEDS ORDERED: KETOROLAC TROMETHAMINE 30 MG/ML VIAL ONE (00:19)
[2020-10-22] MEDS ORDERED: SODIUM CHLORIDE 0.9% 1000ML 1,000 ML ONE (00:19)
[2020-10-22] MEDS ORDERED: ONDANSETRON HCL INJ 2MG/ML 2ML 2 MG/ML VIAL ONE (00:19)
[2020-10-22] MEDS ORDERED: SODIUM CHLORIDE 0.9% 50ML 50 ML ONE (00:33)
[2020-10-22] MEDS ORDERED: IOPAMIDOL 370 MG/ML 200 ML INFUS..BTL INJ ONE (00:33)
[2020-10-22] MEDS ORDERED: MORPHINE SULFATE INJ 4 MG/ML INJ 1ML ONE (01:13)
[2020-10-22] MEDS ORDERED: DIPHENHYDRAMINE HCL INJ 50 MG/ML VIAL IV PRN (02:00)
[2020-10-22] MEDS ORDERED: ONDANSETRON HCL INJ 2MG/ML 2ML 2 MG/ML VIAL IV PRN (02:00)
[2020-10-22] MEDS ORDERED: MORPHINE SULFATE INJ 4 MG/ML INJ 1ML IV ONE (03:00)
[2020-10-22] MEDS ORDERED: MORPHINE SULFATE 5 MG/ML VIAL IV ONE (03:00)
[2020-10-22] MEDS: MORPHINE SULFATE INJ 4 MG/ML INJ 1ML IV PRN ×3 (05:01→13:49)
[2020-10-22] MEDS: PANTOPRAZOLE 40 MG 10ML VIAL IV SCH ×2 (05:15→16:36)
[2020-10-22] MEDS: D5.45%NS/KCL 20MEQ 1,000 ML IV SCH ×3 (05:27→17:53)
[2020-10-22] MEDS ORDERED: VESICARE5 MG PO (07:31)
[2020-10-22] MEDS ORDERED: VIBERZI100 MG PO (07:31)
[2020-10-22] MEDS ORDERED: MYRBETRIQ25 MG (07:34)
[2020-10-22] MEDS: FAMOTIDINE 20 MG/2 ML VIAL IV SCH ×2 (09:08→16:36)
[2020-10-22] MEDS ORDERED: LIDOCAINE HCL 2% LOCAL INJ 5 ML SDV VIAL INJ ONE (12:09)
[2020-10-22] MEDS ORDERED: PROPOFOL IV EMULSION 10 MG/ML 20 ML VIAL ONE (12:09)
[2020-10-22] MEDS ORDERED: FENTANYL CITRATE/PF 100MCG/2 ML INJ ONE (12:27)
[2020-10-22] MEDS ORDERED: MIDAZOLAM HCL 2 MG/2 ML VIAL ONE (12:27)
[2020-10-22] MEDS ORDERED: DEXTROSE 5% 250ML 250 ML IV ONE (18:45)
[2020-10-23] VITALS (9 sets, daily range): BP systolic 119–131; BP diastolic 82–93
[2020-10-23] MEDS: D5.45%NS/KCL 20MEQ 1,000 ML IV SCH ×3 (03:10→18:00)
[2020-10-23] MEDS: PANTOPRAZOLE 40 MG 10ML VIAL IV SCH ×2 (05:15→17:03)
[2020-10-23 06:12] LABS: BASOPHILS % 0.4 % (0.0-1.0); HEMATOCRIT 46.5 % (34.2-44.1); HEMOGLOBIN 15.4 g/dL (12.0-16.0); LYMPHOCYTES # (AUTO) 1.7 (1.0-3.2); LYMPHOCYTES % 33.4 % (18.0-39.1); MEAN CORPUSCULAR HEMOGLOBIN 30.2 pg (28-32); MEAN CORPUSCULAR HGB CONC 33.1 g/dL (31-35); MEAN CORPUSCULAR VOLUME 91.2 fL (81-99); MONOCYTES # (AUTO) 0.5 (0.2-0.8); MONOCYTES % 10.7 % (4.4-11.3); NEUTROPHILS # (AUTO) 2.8 (2.1-6.9); NEUTROPHILS % 54.5 % (38.7-80.0); PLATELET COUNT 277 x10e3/uL (140-360); RED CELL DISTRIBUTION WIDTH 11.5 % (11.7-14.4)
[2020-10-23 06:47] LABS: ALANINE AMINOTRANSFERASE 283 IU/L (0-55); ALBUMIN 3.6 g/dL (3.5-5.0); ALBUMIN/GLOBULIN RATIO 1.3 (0.8-2.0); ALKALINE PHOSPHATASE 233 IU/L (40-150); ANION GAP 12.1 mmol/L (8-16); BLOOD UREA NITROGEN 5 mg/dL (7-26); BUN/CREATININE RATIO 6 (6-25); CALCIUM 8.6 mg/dL (8.4-10.2); CARBON DIOXIDE 29 mmol/L (22-29); CHLORIDE 100 mmol/L (98-107); CREATININE, SERUM 0.84 mg/dL (0.57-1.11); EST GLOMERULAR FILTRATION RATE > 60 ML/MIN (60-); GLUCOSE 101 mg/dL (74-118); POTASSIUM 4.1 mmol/L (3.5-5.1); SODIUM 137 mmol/L (136-145)
[2020-10-23] MEDS: FAMOTIDINE 20 MG/2 ML VIAL IV SCH ×2 (09:02→17:03)
[2020-10-23] MEDS: MORPHINE SULFATE INJ 4 MG/ML INJ 1ML IV PRN (09:17)
[2020-10-23] MEDS ORDERED: SODIUM CHLORIDE 0.9% 50ML 50 ML ONE (09:59)
[2020-10-23] MEDS ORDERED: GADOBENATE DIMEGLUMINE 1 ML IV ONE (09:59)
[2020-10-23] MEDS: METOCLOPRAMIDE HCL 10 MG/2ML VIAL IV SCH ×2 (17:03→23:44)
[2020-10-23] MEDS: ARIPIPRAZOLE 5 MG TABLET PO SCH (21:54)
[2020-10-23] MEDS: VENLAFAXINE HCL 75 MG CAPCR PO SCH (21:54)
[2020-10-23] MEDS: SOLIFENACIN SUCCINATE 5 MG TAB PO SCH (21:54)
[2020-10-24] VITALS (8 sets, daily range): BP systolic 99–130; BP diastolic 70–95
[2020-10-24] MEDS: D5.45%NS/KCL 20MEQ 1,000 ML IV SCH ×3 (02:06→18:00)
[2020-10-24] MEDS: METOCLOPRAMIDE HCL 10 MG/2ML VIAL IV SCH ×4 (05:44→23:28)
[2020-10-24] MEDS: PANTOPRAZOLE 40 MG 10ML VIAL IV SCH ×2 (05:44→17:15)
[2020-10-24 06:17] LABS: BASOPHILS % 0.2 % (0.0-1.0); EOSINOPHILS # (AUTO) 0.1 (0.0-0.4); EOSINOPHILS % 2.3 % (0.0-6.0); HEMATOCRIT 46.9 % (34.2-44.1); HEMOGLOBIN 15.6 g/dL (12.0-16.0); LYMPHOCYTES # (AUTO) 1.9 (1.0-3.2); LYMPHOCYTES % 33.4 % (18.0-39.1); MEAN CORPUSCULAR HEMOGLOBIN 30.4 pg (28-32); MEAN CORPUSCULAR HGB CONC 33.3 g/dL (31-35); MEAN CORPUSCULAR VOLUME 91.2 fL (81-99); MONOCYTES # (AUTO) 0.5 (0.2-0.8); MONOCYTES % 8.9 % (4.4-11.3); NEUTROPHILS # (AUTO) 3.1 (2.1-6.9); NEUTROPHILS % 54.5 % (38.7-80.0); PLATELET COUNT 280 x10e3/uL (140-360); RED BLOOD COUNT 5.14 x10e6/uL (3.6-5.1); RED CELL DISTRIBUTION WIDTH 11.4 % (11.7-14.4)
[2020-10-24 07:18] LABS: ALANINE AMINOTRANSFERASE 190 IU/L (0-55); ALBUMIN 3.4 g/dL (3.5-5.0); ALBUMIN/GLOBULIN RATIO 1.2 (0.8-2.0); ALKALINE PHOSPHATASE 144 IU/L (40-150); ANION GAP 10.1 mmol/L (8-16); BLOOD UREA NITROGEN 8 mg/dL (7-26); BUN/CREATININE RATIO 9 (6-25); CALCIUM 8.3 mg/dL (8.4-10.2); CARBON DIOXIDE 31 mmol/L (22-29); CHLORIDE 101 mmol/L (98-107); CREATININE, SERUM 0.87 mg/dL (0.57-1.11); EST GLOMERULAR FILTRATION RATE > 60 ML/MIN (60-); GLUCOSE 95 mg/dL (74-118); POTASSIUM 4.1 mmol/L (3.5-5.1); SODIUM 138 mmol/L (136-145)
[2020-10-24] MEDS: ELUXADOLINE 100 MG PO SCH (07:52)
[2020-10-24] MEDS: FAMOTIDINE 20 MG/2 ML VIAL IV SCH (08:01)
[2020-10-24] MEDS ORDERED: VENLAFAXINE HCL 37.5MG XR CAP PO SCH (09:00)
[2020-10-24] MEDS ORDERED: VENLAFAXINE HCL 75 MG CAPCR PO SCH (09:00)
[2020-10-24] MEDS ORDERED: NON-FORMULARY MEDICATION (Aripiprazole (Abilify) 10 MG) PO SCH (09:00)
[2020-10-24] MEDS ORDERED: SOLIFENACIN SUCCINATE 5 MG TAB PO SCH (09:00)
[2020-10-24] MEDS ORDERED: ARIPIPRAZOLE 5 MG TABLET PO SCH (09:00)
[2020-10-24] MEDS: TRAMADOL HCL 50 MG TAB PO PRN ×2 (13:00→21:16)
[2020-10-24] MEDS: MORPHINE SULFATE INJ 4 MG/ML INJ 1ML IV PRN (15:37)
[2020-10-24] MEDS ORDERED: TRAZODONE HCL 50 MG TAB PO SCH (21:00)
[2020-10-24] MEDS: SOLIFENACIN SUCCINATE 5 MG TAB PO SCH (21:15)
[2020-10-24] MEDS: ARIPIPRAZOLE 5 MG TABLET PO SCH (21:15)
[2020-10-24] MEDS: VENLAFAXINE HCL 75 MG CAPCR PO SCH (21:15)
[2020-10-25 00:17] VITALS: BP 129/86
[2020-10-25] MEDS: D5.45%NS/KCL 20MEQ 1,000 ML IV SCH (02:00)
[2020-10-25] MEDS: METOCLOPRAMIDE HCL 10 MG/2ML VIAL IV SCH ×2 (05:17→11:59)
[2020-10-25] MEDS: PANTOPRAZOLE 40 MG 10ML VIAL IV SCH (05:17)
[2020-10-25 05:18] VITALS: BP 101/67
[2020-10-25 06:13] LABS: BASOPHILS % 0.3 % (0.0-1.0); HEMATOCRIT 45.7 % (34.2-44.1); HEMOGLOBIN 15.3 g/dL (12.0-16.0); LYMPHOCYTES # (AUTO) 2.7 (1.0-3.2); MEAN CORPUSCULAR HEMOGLOBIN 30.4 pg (28-32); MEAN CORPUSCULAR HGB CONC 33.5 g/dL (31-35); MEAN CORPUSCULAR VOLUME 90.9 fL (81-99); MONOCYTES # (AUTO) 0.5 (0.2-0.8); NEUTROPHILS # (AUTO) 2.7 (2.1-6.9); NEUTROPHILS % 45.9 % (38.7-80.0); PLATELET COUNT 246 x10e3/uL (140-360); RED BLOOD COUNT 5.03 x10e6/uL (3.6-5.1); RED CELL DISTRIBUTION WIDTH 11.9 % (11.7-14.4)
[2020-10-25 06:42] LABS: ALANINE AMINOTRANSFERASE 123 IU/L (0-55); ALBUMIN 3.3 g/dL (3.5-5.0); ALBUMIN/GLOBULIN RATIO 1.2 (0.8-2.0); ALKALINE PHOSPHATASE 125 IU/L (40-150); ANION GAP 9.2 mmol/L (8-16); BLOOD UREA NITROGEN 11 mg/dL (7-26); BUN/CREATININE RATIO 12 (6-25); CALCIUM 8.4 mg/dL (8.4-10.2); CARBON DIOXIDE 29 mmol/L (22-29); CHLORIDE 105 mmol/L (98-107); CREATININE, SERUM 0.89 mg/dL (0.57-1.11); EST GLOMERULAR FILTRATION RATE > 60 ML/MIN (60-); GLUCOSE 81 mg/dL (74-118); POTASSIUM 4.2 mmol/L (3.5-5.1); SODIUM 139 mmol/L (136-145)
[2020-10-25 08:28] VITALS: BP 112/80
[2020-10-25] MEDS: ELUXADOLINE 100 MG PO SCH (09:10)
[2020-10-25 09:27] VITALS: BP 112/80
[2020-10-25] MEDS: TRAMADOL HCL 50 MG TAB PO PRN (11:53)
[2020-10-25 12:38] VITALS: BP 121/87
[2020-10-25 16:30] VITALS: BP 111/70
[2020-10-25] MEDS ORDERED: REGLAN10 MG PO (16:30)
[2020-10-25] MEDS ORDERED: PANTOPRAZOLE SO40 MG PO (16:30)
== END 2020-10-25 17:14 | disposition home or self-care (01) | DRG 392 ==
LOC: FSED 23:59 → ERHOLD 10-22 02:01 → MED/SURG3 10-22 03:51 → OBSVTOIN 10-24 12:26
PROC: 0DB68ZX Excision of Stomach, Via Natural or Artificial Opening Endoscopic, Diagnostic (ICD-10-PCS; principal; 2020-10-22 17:00)
DX: K29.70 Gastritis, unspecified, without bleeding (principal); R10.9 Unspecified abdominal pain; Z98.84 Bariatric surgery status; R11.2 Nausea with vomiting, unspecified; Z20.822 Contact with and (suspected) exposure to COVID-19
CPT/HCPCS: 36415; 43235; 74177; 74183; 80048; 80053; 80076; 81003; 81025; 82105; 82150; 82948; 83690; 85025; 88305; 88312; 96375; 96376; 99284; G0378; J1885; J2001; J2250; J2270; J2405; J2765; J3010; J7030; J7070; Q9967; U0002

== ENCOUNTER 2020-11-28 10:43 | Emergency (ER) | payer OTHER ==
[~2020-11-28] VITALS: Ht 167.6 cm; Wt 72.6 kg
[~2020-11-28 10:43] MED LIST changes: +MYRBETRIQ25 MG; +PANTOPRAZOLE SO40 MG PO; +REGLAN10 MG PO; +VESICARE5 MG PO; +VIBERZI100 MG PO
[2020-11-28] MEDS ORDERED: IBUPROFEN 600 MG TAB PO STA (11:40)
[2020-11-28] MEDS ORDERED: IBUPROFEN 600 MG TAB PO ONE (16:00)
[2020-11-28] MEDS ORDERED: HYDROCODONE/APAP 5MG-325MG TAB PO NR (16:15)
[2020-11-28] MEDS ORDERED: HYDROCODONE/APAP 5MG-325MG TAB ONE (16:48)
== END 2020-11-28 16:50 | disposition home or self-care (01) ==
LOC: ER 12:30
DX: S50.02XA Contusion of left elbow, initial encounter (principal); S63.502A Unspecified sprain of left wrist, initial encounter; S00.83XA Contusion of other part of head, initial encounter; R51.9 Headache, unspecified; W00.0XXA Fall on same level due to ice and snow, initial encounter; Y93.01 Activity, walking, marching and hiking; Y92.008 Other place in unspecified non-institutional (private) residence as the place of occurrence of the external cause; Z98.84 Bariatric surgery status
CPT/HCPCS: 70450; 72125; 99284

== ENCOUNTER 2021-01-11 20:44 | Emergency (ER) | payer OTHER ==
[~2021-01-11] VITALS: Ht 167.6 cm; Wt 72.6 kg
[2021-01-11] MEDS ORDERED: CLINDAMYCIN HC150 MG PO (21:24)
[2021-01-11] MEDS ORDERED: NAPROXEN SODIU220 M1 PO (21:24)
== END 2021-01-11 21:30 | disposition home or self-care (01) ==
LOC: ER 21:13
DX: N76.5 Ulceration of vagina (principal); Z88.0 Allergy status to penicillin; Z88.8 Allergy status to other drugs, medicaments and biological substances; Z98.84 Bariatric surgery status
CPT/HCPCS: 36415; 82948; 99284

== ENCOUNTER 2021-04-17 11:44 | Emergency (ER) | payer OTHER ==
[~2021-04-17] VITALS: Ht 167.6 cm; Wt 72.6 kg
[~2021-04-17 11:44] MED LIST changes: +CLINDAMYCIN HC150 MG PO; +NAPROXEN SODIU220 M1 PO
[2021-04-17] MEDS ORDERED: FAMOTIDINE 20 MG/2 ML VIAL IV ONE (12:50)
[2021-04-17] MEDS ORDERED: ONDANSETRON HCL INJ 2MG/ML 2ML 2 MG/ML VIAL ONE (12:50)
[2021-04-17] MEDS ORDERED: SODIUM CHLORIDE 0.9% 1000ML 1,000 ML ONE ×2 (12:50→13:59)
[2021-04-17] MEDS ORDERED: ONDANSETRON HCL INJ 2MG/ML 2ML 2 MG/ML VIAL IV STA (13:07)
[2021-04-17] MEDS ORDERED: FAMOTIDINE 20 MG/2 ML VIAL IV STA (13:07)
[2021-04-17] MEDS ORDERED: SODIUM CHLORIDE 0.9% 1000ML 1,000 ML IV SCH ×2 (13:15→13:30)
[2021-04-17] MEDS ORDERED: DICYCLOMINE HCL 20 MG/2 ML VIAL IM ONE ×2 (13:15→13:19)
[2021-04-17] MEDS ORDERED: ALBUTEROL/IPRATROPIUM 3 ML NEB NEB ONE (13:30)
[2021-04-17] MEDS ORDERED: SODIUM CHLORIDE 0.9% 50ML 50 ML ONE (14:09)
[2021-04-17] MEDS ORDERED: IOPAMIDOL 370 MG/ML 200 ML INFUS..BTL INJ ONE (14:09)
[2021-04-17] MEDS ORDERED: ONDANSETRON ODT4 MG PO (15:08)
[2021-04-17 15:19] VITALS: BP 114/68
== END 2021-04-17 15:20 | disposition home or self-care (01) ==
LOC: FSED 13:05
DX: K52.9 Noninfective gastroenteritis and colitis, unspecified (principal); E86.0 Dehydration; F32.9 Major depressive disorder, single episode, unspecified; F41.9 Anxiety disorder, unspecified; Z79.899 Other long term (current) drug therapy; Z90.49 Acquired absence of other specified parts of digestive tract; Z98.84 Bariatric surgery status
CPT/HCPCS: 74177; 80048; 80076; 81003; 85025; 99284; J0500; J2405; J7030; Q9967

== ENCOUNTER 2022-06-17 10:39 | Emergency (ER) | payer OTHER ==
[~2022-06-17] VITALS: Ht 167.6 cm; Wt 65.1 kg
[~2022-06-17 10:39] MED LIST changes: +ONDANSETRON ODT4 MG PO
[2022-06-17] MEDS ORDERED: SODIUM CHLORIDE 0.9% 1000ML 1,000 ML IV STA (10:54)
[2022-06-17] MEDS ORDERED: ONDANSETRON HCL INJ 2MG/ML 2ML 2 MG/ML VIAL IV ONE (11:15)
[2022-06-17] MEDS ORDERED: SODIUM CHLORIDE 0.9% 1000ML 1,000 ML ONE (11:18)
[2022-06-17] MEDS ORDERED: ONDANSETRON HCL INJ 2MG/ML 2ML 2 MG/ML VIAL ONE (11:18)
== END 2022-06-17 12:03 | disposition home or self-care (01) ==
LOC: FSED 10:52
DX: R42 Dizziness and giddiness (principal); R11.0 Nausea; R73.9 Hyperglycemia, unspecified; D64.9 Anemia, unspecified; F41.9 Anxiety disorder, unspecified; G47.00 Insomnia, unspecified; M54.9 Dorsalgia, unspecified; G89.29 Other chronic pain; Z98.84 Bariatric surgery status
CPT/HCPCS: 36415; 80053; 81003; 82553; 82948; 84484; 85025; 93005; 96374; 99283; J2405; J7030

== ENCOUNTER 2022-12-13 20:23 | Emergency (ER) | payer BC, OTHER ==
[~2022-12-13] VITALS: Ht 167.6 cm; Wt 64.9 kg
[~2022-12-13 20:23] MED LIST changes: +NAPROXEN250 MG PO
[2022-12-13] MEDS ORDERED: DEXAMETHASONE SOD PHOS 10 MG/1 ML VIAL IM ONE (21:00)
[2022-12-13] MEDS ORDERED: HYDROCODONE/APAP 5MG-325MG TAB PO ONE (21:00)
[2022-12-13] MEDS ORDERED: DEXAMETHASONE SOD PHOS INJ 4 MG/ML SDV ONE (21:05)
[2022-12-13] MEDS ORDERED: ULTRAM 50MG50 MG PO (21:40)
== END 2022-12-13 21:50 | disposition home or self-care (01) ==
LOC: FSED 20:49
DX: M25.551 Pain in right hip (principal); D64.9 Anemia, unspecified; F41.9 Anxiety disorder, unspecified; G47.00 Insomnia, unspecified; M54.9 Dorsalgia, unspecified; G89.29 Other chronic pain; Z86.711 Personal history of pulmonary embolism; Z98.84 Bariatric surgery status
CPT/HCPCS: 73502; 99283; J1100 ×2